=== PATIENT | male | born 1945 | race Caucasian/White ===

== ENCOUNTER → 2016-07-09 | Day surgery (SDC) | payer OTHER ==
[~2016-07-09] VITALS: Ht 175.3 cm; Wt 125.2 kg
[~2016-07-09] MED LIST: ACETAMINOPHEN TAB 650MG DOSE (2X325MG) PO SCH; ADV250INH INH; ALBU17IN INH; ALLO100T PO; ASPI32ECTA PO; BACITRACIN OINT 30GM As Ordered ONE; BACL10TA PO; BACT800T5 PO; BACTRIM 160MG/800MG DS TAB PO SCH; BUPIVACAINE HCL 0.25% 30 ML VIAL As Ordered ONE; CLOP75TA2 PO; DICL75TA PO; FINA5TAB2 PO; FLOM5CAP PO; FLON1SPR; HYDR10T PO; HYDR50TAB PO; IBUP-1114 PO; JANU100T PO; LIDOCAINE 1% SDV INJ 30 ML VIAL As Ordered ONE; LIDOCAINE 2% INJ 100 MG/5 ML SDV (FOR ANES.) As Ordered ONE; LR 1,000 ML IV SCH; MELO15TA4 PO; METF1000 PO; METOCLOPRAMIDE INJ 10MG/2ML VIAL (J2765) IV PRN; METOPROLOL TART 12.5 MG PER 1/2 TAB PO ONE; MIDAZOLAM INJ 2 MG/2 ML VIAL (J2250) As Ordered ONE; ONDANSETRON 4MG/2ML VIAL (J2405) IV PRN; PERCOCET 5MG/325MG TAB As Ordered ONE; PERCOCET 5MG/325MG TAB PO PRN; PHENYLephrine HCL 500 MCG/5 ML (100MCG/ML) SYRINGE (J2370) As Ordered ONE; PRAV40TA2 PO; PROPOFOL 200 MG/20 ML VIAL As Ordered ONE; ROCURONIUM BROMIDE 50 MG/5 ML VIAL As Ordered ONE; SILD50TA PO; SUCCINYLCHOLINE 100 MG/5 ML SYRINGE (J0330) As Ordered ONE; TRAM50TA2 PO; TYLE650T35 PO; VESI5TAB PO; ceFAZolin SOD 1 GM in D5W MINI-BAG PLUS 50 ML IV ONE; ePHEDrine SULFATE 25 MG/5 ML(5MG/ML) SYRINGE As Ordered ONE; fentaNYL 100 MCG/2 ML INJECTION (J3010) As Ordered ONE; fentaNYL 100 MCG/2 ML INJECTION (J3010) IV PRN
[2016-07-09 11:50] VITALS: BP 145/86
--- NOTE | 2016-07-09 14:03 | RO ---
DATE OF PROCEDURE: 07/09/2016 PREOPERATIVE DIAGNOSIS: Phimosis. POSTOPERATIVE DIAGNOSIS: Phimosis. PROCEDURE: Circumcision. SURGEON: Bucky Hinton MD DIRECTOR HOME HEALTH: Paul Mason, PGY-3 ANESTHESIA: General. COMPLICATIONS: None. ESTIMATED BLOOD LOSS: N/A. HISTORY OF PRESENT ILLNESS: 71-year-old male patient that has actively a phimosis and he could not retract the foreskin. For this reason, he consented for a circumcision. PROCEDURE DESCRIPTION: With the patient under general anesthesia in supine position, after prepping and draping the area of concern, which included the entire genitalia and abdomen, we started by placing at the base of the penis local lidocaine 1% and Marcaine 0.25%, a total of 10 mL, around the base of the penis. We then proceeded to actively retract the foreskin and we placed a silk stitch in a #0 Vicryl in the glans of the penis to stretch the penis and retract the foreskin. We then proceeded to do an incision 1 cm away from the sulcus of the glans in a circumferential fashion with a cold knife 15 blade. 4 cm proximal to this one, toward the base of the penis, we did another circumferential incision and then excised the strip of skin between the two incision sites. We then fulgurated with Bovie cautery the bleeding vessels and connected the borders of the skin with separate stitches, chromic #3-0, in separate stitch fashion. We then proceeded to actively place bacitracin cream on top of the wound, wrapped the penis wound with Kerlix roll and also a Coban. We took the stitch out for traction from the glans and held pressure for one minute to stop the bleeding from the glans. We then proceeded to actively pass the patient to recovery. He will go home today with antibiotic and pain medication. He will followup at [facility] [place] in about three days for removal of the stitches. He cannot have sex for one month.
== END | disposition home or self-care (01) ==
LOC: M SDC 06:39
PROVIDERS: ATTEND Urology
DX: N47.1 Phimosis (principal); I10 Essential (primary) hypertension; N40.0 Benign prostatic hyperplasia without lower urinary tract symptoms; E78.00 Pure hypercholesterolemia, unspecified; J45.909 Unspecified asthma, uncomplicated; I25.10 Atherosclerotic heart disease of native coronary artery without angina pectoris; E11.9 Type 2 diabetes mellitus without complications; I25.2 Old myocardial infarction; R06.02 Shortness of breath; G47.33 Obstructive sleep apnea (adult) (pediatric); J32.9 Chronic sinusitis, unspecified; M54.12 Radiculopathy, cervical region; E78.5 Hyperlipidemia, unspecified; M17.0 Bilateral primary osteoarthritis of knee; G47.00 Insomnia, unspecified; M54.41 Lumbago with sciatica, right side; Z90.89 Acquired absence of other organs; Z95.5 Presence of coronary angioplasty implant and graft; Z78.1 Physical restraint status; Z72.0 Tobacco use; Z79.899 Other long term (current) drug therapy; Z79.82 Long term (current) use of aspirin
CPT/HCPCS: 54161; 88304; J0330; J0690; J2250; J2370; J3010

== ENCOUNTER → 2018-11-12 | Outpatient (CLI) | payer MEDICARE ==
[~2018-11-12] MED LIST changes: -ACETAMINOPHEN TAB 650MG DOSE (2X325MG) PO SCH; +ASPI-255 PO; -ASPI32ECTA PO; -BACITRACIN OINT 30GM As Ordered ONE; -BACL10TA PO; +BACL1TAB8 PO; -BACTRIM 160MG/800MG DS TAB PO SCH; -BUPIVACAINE HCL 0.25% 30 ML VIAL As Ordered ONE; +FLOM0.4C39 PO; -FLOM5CAP PO; +HYDR-643 PO; -HYDR10T PO; -LIDOCAINE 1% SDV INJ 30 ML VIAL As Ordered ONE; -LIDOCAINE 2% INJ 100 MG/5 ML SDV (FOR ANES.) As Ordered ONE; -LR 1,000 ML IV SCH; +MELO15TA28 PO; -MELO15TA4 PO; -METF1000 PO; +METF10004 PO; -METOCLOPRAMIDE INJ 10MG/2ML VIAL (J2765) IV PRN; -METOPROLOL TART 12.5 MG PER 1/2 TAB PO ONE; -MIDAZOLAM INJ 2 MG/2 ML VIAL (J2250) As Ordered ONE; -ONDANSETRON 4MG/2ML VIAL (J2405) IV PRN; -PERCOCET 5MG/325MG TAB As Ordered ONE; -PERCOCET 5MG/325MG TAB PO PRN; -PHENYLephrine HCL 500 MCG/5 ML (100MCG/ML) SYRINGE (J2370) As Ordered ONE; -PROPOFOL 200 MG/20 ML VIAL As Ordered ONE; -ROCURONIUM BROMIDE 50 MG/5 ML VIAL As Ordered ONE; -SUCCINYLCHOLINE 100 MG/5 ML SYRINGE (J0330) As Ordered ONE; +VENTAER INH; -VESI5TAB PO; +VESI5TAB2 PO; -ceFAZolin SOD 1 GM in D5W MINI-BAG PLUS 50 ML IV ONE; -ePHEDrine SULFATE 25 MG/5 ML(5MG/ML) SYRINGE As Ordered ONE; -fentaNYL 100 MCG/2 ML INJECTION (J3010) As Ordered ONE; -fentaNYL 100 MCG/2 ML INJECTION (J3010) IV PRN
[2018-11-12 08:12] LABS: HEMATOCRIT 41.1 % (42.0-52.0); HEMOGLOBIN 13.1 g/dl (13.5-17.5); MEAN CORPUSCULAR HEMOGLOBIN 30.5 pg (27.0-33.0); MEAN CORPUSCULAR HGB CONC 31.9 g/dl (32.0-36.5); MEAN CORPUSCULAR VOLUME 95.8 fl (80.0-96.0); PLATELET COUNT, AUTOMATED 246 10^3/uL (150-450); RED BLOOD COUNT 4.29 10^6/uL (4.30-6.10); WHITE BLOOD COUNT 12.3 10^3/uL (4.0-10.0)
[2018-11-12 08:26] LABS: INR 0.97; PROTHROMBIN TIME 12.6 SECONDS (11.8-14.0)
[2018-11-12 08:38] LABS: ERYTHROCYTE SEDIMENTATION RATE 34 mm/hr (0-20)
[2018-11-12 08:41] LABS: ALBUMIN 3.8 GM/DL (3.2-5.2); BILIRUBIN,TOTAL 0.5 MG/DL (0.2-1.0); CREATININE FOR GFR 1.41 MG/DL (0.70-1.30); GLOMERULAR FILTRATION RATE 52.2 (>42); POTASSIUM SERUM 4.6 MEQ/L (3.5-5.1); TOTAL PROTEIN 7.2 GM/DL (6.4-8.2)
--- NOTE | 2018-11-12 09:27 | REP ---
REASON: Preoperative evaluation. COMPARISON: None. There is cardiomegaly. There is bilateral CP angle blunting. Lung weeks are otherwise clear. Degenerative change is seen involving the imaged spine. The osseous structures are otherwise unremarkable. IMPRESSION: Mild cardiomegaly and mild bilateral CP angle blunting. There are no priors for comparison. Consider chest CT. Electronically Signed by Gildardo Bowen DO 11/12/2018 02:09 P
--- NOTE | 2018-11-13 16:02 | ECGEPIP ---
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
== END ==
LOC: M LAB 07:40
PROVIDERS: ATTEND Orthopaedic Surgery
DX: Z01.818 Encounter for other preprocedural examination (principal); Z79.01 Long term (current) use of anticoagulants

== ENCOUNTER → 2018-11-30 | Outpatient (REF) | payer MEDICARE ==
[2018-11-30 14:12] LABS: APPEARANCE, URINE CLEAR (CLEAR); BACTERIA, URINE AUTO NEGATIVE (NEGATIVE); BILIRUBIN, URINE AUTO NEGATIVE (NEGATIVE); BLOOD, URINE BLOOD NEGATIVE (NEGATIVE); COLOR, URINE STRAW (YELLOW); GLUCOSE, URINE (UA) AUTO NEGATIVE (NEGATIVE); KETONE, URINE AUTO NEGATIVE (NEGATIVE); LEUKOCYTE ESTERASE, URINE AUTO NEGATIVE (NEGATIVE); NITRITE, URINE AUTO NEGATIVE (NEGATIVE); PROTEIN, URINE AUTO NEGATIVE (NEGATIVE); RBC, URINE AUTO 0 /HPF (0-3); SPECIFIC GRAVITY URINE AUTO 1.009 (1.002-1.035); SQUAMOUS EPITHELIAL CELL UR AU 0 /HPF (0-6); UROBILINOGEN, URINE AUTO 0.2 mg/dL (0.0-2.0); WBC, URINE AUTO 1 /HPF (0-3)
== END ==
LOC: M SMT 13:47
PROVIDERS: ATTEND Nurse Practitioner Women's Health
DX: N13.2 Hydronephrosis with renal and ureteral calculous obstruction (principal)
CPT/HCPCS: 81001; 87086; G0463

== ENCOUNTER → 2018-12-09 | Outpatient (CLI) | payer MEDICARE ==
--- NOTE | 2018-12-09 14:08 | REP ---
CT ABDOMEN AND PELVIS WITHOUT IV OR ORAL CONTRAST: HISTORY: Ureteral stone with hydronephrosis. Comparison CT study is from September 01, 2011. 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 The lung bases are clear on axial CT images. The liver and the spleen are normal in size homogeneous in texture. No adrenal lesion is seen. No pancreatic abnormality is observed. No abnormalities noted in the gallbladder. The there are bilateral intrarenal calculi. There are five or six intrarenal calculi in the right kidney. The largest of these measures 9 mm in greatest diameter. There are also multiple intrarenal calculi in the left kidney. The largest of these is a renal pelvic calculus measuring 10 mm. There are two or three calculi dependently positioned in the dilated renal pelvis. There is moderate left-sided hydronephrosis. Hydroureter is noted due to an obstructing proximal ureteral calculus just below the level of the lower pole left kidney. This calculus measures 9 mm in greatest diameter. There is a intraluminal bladder calculus just to the right of midline measuring 6 mm in diameter. No other urinary tract calculus is seen. There are prostatic calcifications which a dystrophic. Seminal vesicles are unremarkable. There is left colonic diverticulosis without CT evidence of diverticulitis. A normal appendix is seen in the right lower quadrant. No abdominal wall defect is noted. There are degenerative spondylosis changes in the lumbar spine. IMPRESSION: Moderate left-sided hydronephrosis due to a 9 mm proximal ureteral calculus. There are multiple calculi above this in the renal pelvis and intrarenal collecting system on the left. There are multiple intrarenal calculi in the right kidney as above without right-sided hydronephrosis. There is a 6 mm bladder calculus noted as well. Electronically Signed by Nathaniel Wilkins MD 12/09/2018 03:13 P
== END ==
LOC: M RAD 10:23
PROVIDERS: ATTEND Nurse Practitioner Women's Health
DX: N13.2 Hydronephrosis with renal and ureteral calculous obstruction (principal); K57.30 Diverticulosis of large intestine without perforation or abscess without bleeding; M47.816 Spondylosis without myelopathy or radiculopathy, lumbar region

== ENCOUNTER 2019-02-04 05:59 | Inpatient (IN) | payer MEDICARE ==
[~2019-02-04] VITALS: Ht 172.7 cm; Wt 113.2 kg
[~2019-02-04 05:59] MED LIST changes: +BASA100I SC; +CARV3.12 PO; +FISH1000 PO; -FLON1SPR; +FLON1SPR NARES; +FURO40TA2 PO; +GABA600T4 PO; +OXYB5TAB10 PO
[2019-02-04 06:29] LABS: BASO # 0.1 10^3/uL (0.0-0.2); BASO % 0.7 % (0.0-1.0); EOS % 0.1 % (0.0-3.0); HEMATOCRIT 47.2 % (42.0-52.0); LYMPH # 0.4 10^3/uL (1.5-5.0); LYMPH % 5.3 % (24.0-44.0); MEAN CORPUSCULAR HEMOGLOBIN 30.1 pg (27.0-33.0); MEAN CORPUSCULAR HGB CONC 31.8 g/dl (32.0-36.5); MEAN CORPUSCULAR VOLUME 94.8 fl (80.0-96.0); MONO # 0.5 10^3/uL (0.0-0.8); MONO % 6.4 % (0.0-5.0); NEUTROPHILS # 6.3 10^3/uL (1.5-8.5); NEUTROPHILS % 86.8 % (36.0-66.0); PLATELET COUNT, AUTOMATED 190 10^3/uL (150-450); RED BLOOD COUNT 4.98 10^6/uL (4.30-6.10); WHITE BLOOD COUNT 7.3 10^3/uL (4.0-10.0)
[2019-02-04 07:03] LABS: ALT/SGPT 28 U/L (12-78); BILIRUBIN,TOTAL 0.8 MG/DL (0.2-1.0); BLOOD UREA NITROGEN 22 MG/DL (7-18); CALCIUM LEVEL 8.6 MG/DL (8.8-10.2); CARBON DIOXIDE LEVEL 29 MEQ/L (21-32); CHLORIDE LEVEL 97 MEQ/L (98-107); CK-MB VALUE MASS < 1.0 NG/ML (<3.6); CPK CREATINE PHOSPHOKINASE 102 U/L (39-308); GLOMERULAR FILTRATION RATE 39.4 (>42); GLUCOSE, FASTING 142 MG/DL (70-100); MB/CK RELATIVE INDEX 0.98 (< OR =4); POTASSIUM SERUM 4.6 MEQ/L (3.5-5.1); SODIUM LEVEL 135 MEQ/L (136-145)
[2019-02-04 07:04] LABS: ALBUMIN 3.6 GM/DL (3.2-5.2); BILIRUBIN,DIRECT 0.3 MG/DL (0.0-0.2); NT-PRO BNP 10449 PG/ML (<450); TOTAL PROTEIN 7.3 GM/DL (6.4-8.2); TROPONIN I 0.08 NG/ML (< 0.10)
--- NOTE | 2019-02-04 07:06 | REPVR ---
PROCEDURE INFORMATION: Exam: CT Abdomen and Pelvis Without Contrast Exam date and time: 02/04/19 (6:30am) Clinical history: 73 year old male with right flank pain. Renal colic. TECHNIQUE: Imaging protocol: Computed tomography of the abdomen and pelvis without contrast. Radiation optimization: All CT scans at this facility use at least one of these dose optimization techniques: automated exposure control; mA and/or kV adjustment per patient size (includes targeted exams where dose is matched to clinical indication); or iterative reconstruction. COMPARISON: CT ABDOMEN PELVIS of 12/09/18 FINDINGS: Liver: Normal. No solid mass. Gallbladder and bile ducts: Normal. No calcified stones. No ductal dilatation. Pancreas: Normal. No ductal dilatation. Spleen: Normal. No splenomegaly. Adrenals: Normal. No mass. Kidneys and ureters: Mildly full left intrarenal collecting system. The proximal left ureter is dilated. Multiple non-obstructing bilateral intrarenal stones. Multiple stones in the proximal 1/3 of the left ureter. No distal left ureteral stones. Left upper renal pole parapelvic renal cyst (1.5 cm size). Probable small cyst laterally at the left lower renal pole. Stomach and bowel: Unremarkable. No bowel obstruction. No mucosal thickening. Appendix: No evidence of appendicitis. Intraperitoneal space: Unremarkable. No free air. No significant fluid collection. Vasculature: Unremarkable. No abdominal aortic aneurysm. Lymph nodes: Unremarkable. No enlarged lymph nodes. Bladder: Small stone (3 mm size) posteriorly in the urinary bladder, in the midline. Larger stone (5 mm size) posteriorly, right of midline (perhaps in the intramural portion of the distal right ureter; perhaps a stone recently passed into the bladder). Reproductive: Unremarkable as visualized. Bones/joints: Unremarkable. No acute fracture. Soft tissues: Unremarkable. IMPRESSION: Mildly full left intrarenal collecting system. Multiple non-obstructing intrarenal stones, bilaterally. Multiple small proximal left ureteral stones. Small punctate stone in the midline of the urinary bladder, layering dependently. Larger stone (5 mm size) in the urinary bladder, right of midline -- probably in the intramural portion of the distal right ureter, or recently passed into the urinary bladder. Electronically signed by: Ludy Hernandez On 02/04/2019 07:06:01 AM
--- NOTE | 2019-02-04 07:08 | REP ---
Clinical: Cough and dyspnea. Technique: AP and lateral views of the chest. Comparison: 11/12/2018. Findings: Mediastinum and cardiac silhouette are within normal limits. Lung weeks are clear and without focal consolidation, effusion, or pneumothorax. Skeletal structures are intact. Impression: No focal consolidation. Electronically Signed by Isak Urbina MD 02/04/2019 06:59 A
[2019-02-04] MEDS ORDERED: FUROSEMIDE 40 MG/4 ML VIAL (J1940) IV ONE (07:45)
[2019-02-04] MEDS ORDERED: ASPI81TA85 PO (08:27)
[2019-02-04] MEDS ORDERED: METF-839 PO (08:27)
[2019-02-04] MEDS ORDERED: ACE65ERTAB PO (08:27)
[2019-02-04] MEDS ORDERED: OXYB5TAB2 PO (08:27)
[2019-02-04] MEDS ORDERED: ALBU83IN INH (08:27)
[2019-02-04] MEDS ORDERED: CARV12.5 PO (08:27)
[2019-02-04] MEDS ORDERED: SYST0.4D2 OS (08:27)
[2019-02-04] MEDS ORDERED: FLUTICASONE PROP 0.05% NASAL SPRAY 16 GM (FLONASE) NARES PRN (12:00)
[2019-02-04] MEDS ORDERED: GLUCOSE 4 GM CHEW TABLET PO PRN (12:00)
[2019-02-04] MEDS ORDERED: GLUCAGON FOR INJ 1 MG VIAL (J1610) SC PRN (12:00)
[2019-02-04] MEDS ORDERED: DEXTROSE 50% 50 ML SYRINGE IV PRN (12:00)
--- NOTE | 2019-02-04 12:44 | HPEPDOC ---
[facility] Medical History & Physical Date of Admission Feb 04, 2019 Date of Service: Feb 04, 2019 Attending Physician: LUNA WALTERS MD History and Physical CHIEF COMPLAINT: Shortness of breath HISTORY OF PRESENT ILLNESS: 73-year-old male with past medical history of coronary artery disease status post [place], stents 3, CHF with low ejection fraction, diabetes mellitus, asthma and arthritis presents with shortness of breath. The past few days. He reports that he's gained about 6 pounds over the past 2 weeks, reports paroxysmal nocturnal dyspnea for the past few days, worsening, also having a dry cough along with worsening lower extremity edema. He does not have any other associated symptoms, denies fever, chills, arthralgia, nausea, vomiting, abdominal pain or diarrhea. 10 point review of system was negative except for above PAST MEDICAL HISTORY: 1. CHF. 2., Coronary artery disease. 3.. NH. 4. Diabetes mellitus 5. Asthma 6. Renal calculi 7. Arthritis PAST SURGICAL HISTORY: 1. Coronary stents. 2. Appendectomy. SOCIAL HISTORY: Denies smoking. Denies alcohol Denies drug use FAMILY HISTORY: Family history positive for heart disease ALLERGIES: Please see below. HOME MEDICATIONS: Please see below. PHYSICAL EXAMINATION: VITAL SIGNS: Please see below. GENERAL: No distress, morbidly obese HEENT: Normocephalic, atraumatic, moist mucous membranes NECK: Supple CARDIOVASCULAR EXAMINATION: Distant, S1, S2 RESPIRATORY EXAMINATION: Scattered rhonchi, diminished, no wheezing ABDOMINAL EXAMINATION: Soft, nontender, nondistended, positive bowel sounds EXTREMITIES: Bilateral lower extremity pitting edema SKIN: No rash NEUROLOGICAL EXAMINATION: Alert and oriented 3, no focal deficits PSYCHIATRIC EXAMINATION: Calm and cooperative LABORATORY DATA: See below. IMAGING: Chest x-ray without acute pathology MICROBIOLOGY: Please see below. ASSESSMENT: 73-year-old male with past medical history of CHF, coronary artery disease, [place], diabetes mellitus and asthma presents with symptoms concerning for fluid overload. . PLAN: 1. Acute on chronic systolic heart failure. TTE ordered, fluid restriction 1200 mL per day, monitor I's and O's, weighed daily, Lasix 40 mg IV twice a day. 2. Acute kidney injury on chronic kidney disease. Based on clinical presentation, likely cardiorenal syndrome, will monitor renal function with continued diuresis. 3. Diabetes mellitus. Levemir 10 units at bedtime, sliding scale insulin with fingersticks before every meal see and at bedtime 4. Coronary artery disease. Status post NH 4-5 years ago, 3-4 stents placed at that time, currently stab le. Continue optimal medical management (aspirin, Plavix, statin and beta matthew) 5. Asthma Continue home meds. 6. BPH. Continue home Proscar, oxybutynin, and Vesicare DVT prophylaxis: Heparin subcutaneous GI prophylaxis: Not needed Vital Signs Vital Signs Date Time Temp Pulse Resp B/P (MAP) Pulse Ox O2 Delivery O2 Flow Rate FiO2 02/04/19 11:15 87 107/67 (80) 96 Nasal Cannula 2.0 02/04/19 09:00 16 02/04/19 06:00 97.5 Laboratory Data Labs 24H Laboratory Tests 2 02/04/19 06:17: Immature Granulocyte % (Auto) 0.7, Neutrophils (%) (Auto) 86.8H, Lymphocytes (%) (Auto) 5.3L, Monocytes (%) (Auto) 6.4H, Eosinophils (%) (Auto) 0.1, Basophils (%) (Auto) 0.7, Neutrophils # (Auto) 6.3, Lymphocytes # (Auto) 0.4L, Monocytes # (Auto) 0.5, Eosinophils # (Auto) 0.0, Basophils # (Auto) 0.1, Nucleated Red Blood Cells % (auto) 0.0, Anion Gap 9, Glomerular Filtration Rate 39.4L, Calcium Level 8.6L, Total Bilirubin 0.8, Direct Bilirubin 0.3H, Aspartate Amino Transf (AST/SGOT) 25, Alanine Aminotransferase (ALT/SGPT) 28, Alkaline Phosphatase 64, Total Creatine Kinase 102, Creatine Kinase MB < 1.0, Creatine Kinase MB Relative Index 0.98, Troponin I 0.08, MZ-[id number]-Type Natriuretic Peptide 16044R, Total Protein 7.3, Albumin 3.6, Albumin/Globulin Ratio 0.97L, Thyroid Stimulating Hormone (TSH) 1.130 02/04/19 09:09: Urine Color YELLOW, Urine Appearance CLEAR, Urine pH 7.0, Urine Specific [place] 1.009, Urine Protein NEGATIVE, Urine Glucose (UA) NEGATIVE, Urine Ketones NEGATIVE, Urine Blood NEGATIVE, Urine Nitrite NEGATIVE, Urine Bilirubin NEGATIVE , Urine Urobilinogen 0.2, Urine Leukocyte Esterase NEGATIVE, Urine WBC (Auto) 0, Urine RBC (Auto) 1, Urine Hyaline Casts (Auto) 0, Urine Bacteria (Auto) NEGATIVE, Urine Squamous Epithelial Cells 0, Urine Mucus (Auto) SMALL, Urine Sperm (Auto) CBC/BMP Laboratory Tests 02/04/19 06:17 Home Medications Scheduled Allopurinol (Allopurinol) 100 Mg Tab, 100 MG PO BID Aspirin (Aspir 81) 81 Mg Tablet.dr, 81 MG PO DAILY Baclofen (Baclofen) 10 Mg Tab, 5 MG PO QHS Carvedilol (Carvedilol) 12.5 Mg Tablet, 12.5 MG PO BID Clopidogrel Bisulfate (Clopidogrel) 75 Mg Tablet, 75 MG PO DAILY Finasteride (Finasteride) 5 Mg Tab, 5 MG PO DAILY Furosemide (Furosemide) 40 Mg Tablet, 40 MG PO DAILY Gabapentin (Gabapentin) 600 Mg Tablet, 600 MG PO TID Insulin Glargine,Hum.rec.anlog (Basaglar Kwikpen U-100) 100 Unit/1 Ml Insuln.pen, 14 UNIT SC QHS Metformin HCl (Metformin HCl) 500 Mg Tablet, 500 MG PO BID Oxybutynin Chloride (Oxybutynin Chloride ER) 5 Mg Tab.er.24, 5 MG PO DAILY Pravastatin Sodium (Pravastatin Sodium) 40 Mg Tab, 40 MG PO QPM Salmeterol/Fluticasone (Advair 250-50 Diskus) 14 Puff/Inhaler Aerp, 1 PUFF INH BID Sitagliptin Phosphate (Januvia) 100 Mg Tab, 100 MG PO DAILY Solifenacin Succinate (Vesicare) 5 Mg Tab, 5 MG PO DAILY Scheduled PRN Acetaminophen (Acetaminophen ER) 650 Mg Tablet.er, 650 MG PO Q8H PRN for PAIN Albuterol Sulf (Albuterol Sulfate) 2.5 Mg/3 Ml Vial.neb, 2.5 MG INH Q4H PRN for SHORTNESS OF BREATH Albuterol Sulfate (Ventolin Hfa) 18 Gm Hfa.aer.ad, 2 PUFF INH Q4H PRN for SOB/WHEEZING Fluticasone Propionate (Flonase Allergy Relief) 50 Mcg/Act Spr, 2 SPRAYS NARES DAILY PRN for CONGESTION Propylene Glycol/Peg 400 (Systane Gel Eye Drops) 10 Ml Drops.gel, 1 DROP OS QID PRN for DRY EYES Allergies Coded Allergies: No Known Allergies (Unverified , 12/30/18) A-FIB/CHADSVASC A-FIB History Current/History of A-Fib/PAF?: No LUNA WALTERS MD Feb 04, 2019 12:44
[2019-02-04] MEDS: HumaLOG INSULIN (NovoLOG) PER UNIT SC SCH ×3 (12:59→21:00)
--- NOTE | 2019-02-04 13:37 | ECGEPIP ---
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
[2019-02-04] MEDS: HEPARIN SOD (PORCINE) 5000 UNITS/ML VIAL SC SCH ×2 (15:09→21:45)
[2019-02-04 16:45] VITALS: BP 133/86
[2019-02-04] MEDS ORDERED: FUROSEMIDE 40 MG/4 ML VIAL (J1940) IV SCH (17:00)
[2019-02-04] MEDS: GABAPENTIN 300 MG CAP PO SCH ×2 (17:42→21:42)
[2019-02-04 20:00] VITALS: BP 99/64
[2019-02-04] MEDS: ADVAIR HFA 115/21MCG INHALER INH SCH (20:20)
[2019-02-04] MEDS ORDERED: POTASSIUM CHLORIDE 10 MEQ SR TABLET PO SCH (21:00)
[2019-02-04] MEDS: BACLOFEN 5MG PER 1/2 TABLET PO SCH (21:41)
[2019-02-04] MEDS: ALLOPURINOL 100 MG TAB PO SCH (21:42)
[2019-02-04] MEDS: PRAVASTATIN 20 MG TAB PO SCH (21:42)
[2019-02-04] MEDS: CARVedilol 12.5 MG TAB PO SCH (21:45)
[2019-02-04] MEDS: LEVEMIR (INSULIN DETEMIR) 1 UNITS/0.01ML SC SCH (21:46)
[2019-02-05] VITALS (7 sets, daily range): BP systolic 96–124; BP diastolic 50–74
[2019-02-05 06:06] LABS: HEMATOCRIT 46.6 % (42.0-52.0); HEMOGLOBIN 14.8 g/dl (13.5-17.5); MEAN CORPUSCULAR HEMOGLOBIN 29.8 pg (27.0-33.0); MEAN CORPUSCULAR HGB CONC 31.8 g/dl (32.0-36.5); MEAN CORPUSCULAR VOLUME 93.8 fl (80.0-96.0); PLATELET COUNT, AUTOMATED 136 10^3/uL (150-450); RED BLOOD COUNT 4.97 10^6/uL (4.30-6.10); WHITE BLOOD COUNT 6.5 10^3/uL (4.0-10.0)
[2019-02-05 06:32] LABS: ALBUMIN 3.4 GM/DL (3.2-5.2); BILIRUBIN,TOTAL 0.8 MG/DL (0.2-1.0); CALCIUM LEVEL 8.8 MG/DL (8.8-10.2); CREATININE FOR GFR 1.97 MG/DL (0.70-1.30); GLOMERULAR FILTRATION RATE 35.5 (>42); MAGNESIUM LEVEL 2.1 MG/DL (1.8-2.4); POTASSIUM SERUM 4.2 MEQ/L (3.5-5.1); TOTAL PROTEIN 7.7 GM/DL (6.4-8.2)
[2019-02-05] MEDS: ADVAIR HFA 115/21MCG INHALER INH SCH ×2 (09:00→20:30)
[2019-02-05] MEDS: HumaLOG INSULIN (NovoLOG) PER UNIT SC SCH ×4 (09:21→20:47)
[2019-02-05] MEDS: HEPARIN SOD (PORCINE) 5000 UNITS/ML VIAL SC SCH ×2 (09:21→20:47)
[2019-02-05] MEDS: ASPIRIN 81 MG ENTERIC TAB PO SCH (09:21)
[2019-02-05] MEDS: GABAPENTIN 300 MG CAP PO SCH ×3 (09:21→20:46)
[2019-02-05] MEDS: oxyBUTYnin *DITROPAN XL* 5 MG TABCR PO SCH (09:21)
[2019-02-05] MEDS: CLOPIDOGREL 75 MG TAB PO SCH (09:21)
[2019-02-05] MEDS: CARVedilol 12.5 MG TAB PO SCH ×2 (09:22→20:47)
[2019-02-05] MEDS: ALLOPURINOL 100 MG TAB PO SCH ×2 (09:22→20:47)
[2019-02-05] MEDS: FINASTERIDE 5 MG TAB PO SCH (09:23)
--- NOTE | 2019-02-05 10:01 | REP ---
Renal ultrasound: The right kidney measures 12.6 by 5.9 x 6.0 cm. Left kidney measures 0.7 x 6.3 x 5.3 cm. The kidneys are normal size. Renal cortical echogenicity is normal bilaterally. There is no hydronephrosis on the right. There is moderate hydronephrosis on the left. There is no hydroureter on the right on the left. There are multiple echogenic foci within each kidney compatible with renal calculi. The largest on the right measures 8 x 6 mm and the largest on the left measures 17 mm. There are no solid or cystic renal masses. Bladder: The bladder is adequately distended. With color Doppler assessment there are bilateral ureteral jets suggesting there is no ureteral obstruction. Impression: Multiple nonobstructive renal calculi bilaterally. Moderate left hydronephrosis, however, there is a left ureteral jet into the bladder. No right hydronephrosis. There is a right ureteral jet into the bladder. Electronically Signed by Duy Broussard MD 02/05/2019 09:53 A
[2019-02-05] MEDS: SOLIFENACIN 5 MG TAB PO SCH (11:20)
--- NOTE | 2019-02-05 12:43 | IPNPDOC ---
Date Seen The patient was seen on 02/05/19. Progress Note HISTORY OF PRESENT ILLNESS: 73-year-old male with past medical history of coronary artery disease status post [place], stents 3, CHF with low ejection fraction, diabetes mellitus, asthma and arthritis presents with shortness of breath. The past few days. He reports that he's gained about 6 pounds over the past 2 weeks, reports paroxysmal nocturnal dyspnea for the past few days, worsening, also having a dry cough along with worsening lower extremity edema. He does not have any other associated symptoms, denies fever, chills, arthralgia, nausea, vomiting, abdominal pain or diarrhea. 02/05/2019 Patient resting in bed, reports slight improvement in dyspnea, continues to have cough, had good urine output overnight, but minimal in the morning. He has no other complaints at this time, denies any chest pain, vomiting, abdominal pain or diarrhea. 10 point review of system was negative except for above ALLERGIES: Please see below. HOME MEDICATIONS: Please see below. PHYSICAL EXAMINATION: VITAL SIGNS: Please see below. GENERAL: No distress, morbidly obese HEENT: Normocephalic, atraumatic, moist mucous membranes NECK: Supple CARDIOVASCULAR EXAMINATION: Distant, S1, S2 RESPIRATORY EXAMINATION: Scattered rhonchi, diminished, no wheezing ABDOMINAL EXAMINATION: Soft, nontender, nondistended, positive bowel sounds EXTREMITIES: Bilateral lower extremity pitting edema SKIN: No rash NEUROLOGICAL EXAMINATION: Alert and oriented 3, no focal deficits PSYCHIATRIC EXAMINATION: Calm and cooperative LABORATORY DATA: See below. IMAGING: Chest x-ray without acute pathology MICROBIOLOGY: Please see below. ASSESSMENT: 73-year-old male with past medical history of CHF, coronary artery disease, [place], diabetes mellitus and asthma presents with symptoms concerning for fluid overload. PLAN: 1. Acute on chronic systolic heart failure. TTE ordered, fluid restriction 1200 mL per day, monitor I's and O's, weighed daily, hold Lasix today for worsening renal function. 2. Acute kidney injury on chronic kidney disease. Worsening, possibly obstructive, renal ultrasound showing moderate left hydronephrosis, urology consulted (Dr. Galeana), holding diuretics for today. 3. Diabetes mellitus. Levemir 10 units at bedtime, sliding scale insulin with fingersticks before every meal see and at bedtime 4. Coronary artery disease. Status post [place] 4-5 years ago, 3-4 stents placed at that time, currently stable. Continue optimal medical management (aspirin, Plavix, statin and beta matthew) 5. Asthma Continue home meds. 6. BPH. Continue home Proscar, oxybutynin, and Vesicare DVT prophylaxis: Heparin subcutaneous GI prophylaxis: Not needed VS, I&O, 24H, Fishbone Vital Signs/I&O Vital Signs Date Time Temp Pulse Resp B/P (MAP) Pulse Ox O2 Delivery O2 Flow Rate FiO2 02/05/19 12:00 98.2 98 21 100/50 (67) 91 Nasal Cannula 2.0 I&O- Last 24 Hours up to 6 AM 02/05/19 06:00 Intake Total 660 ml Output Total 1375 ml Balance -715 ml Laboratory Data 24H LABS Laboratory Tests 2 02/04/19 12:52: Bedside Glucose (Misc Panel) 121H 02/04/19 16:37: Bedside Glucose (Misc Panel) 137H 02/04/19 20:26: Bedside Glucose (Misc Panel) 170H 02/05/19 05:31: Nucleated Red Blood Cells % (auto) 0.0, Anion Gap 7L, Glomerular Filtration Rate 35.5L, Calcium Level 8.8, Magnesium Level 2.1, Total Bilirubin 0.8, Aspartate Amino Transf (AST/SGOT) 48H, Alanine Aminotransferase (ALT/SGPT) 32, Alkaline Phosphatase 64, Total Protein 7.7, Albumin 3.4, Albumin/Globulin Ratio 0.79L 02/05/19 11:49: Urine Random Creatinine 176.0, Urine Random Sodium 39 CBC/BMP Laboratory Tests 02/05/19 05:31 Microbiology Microbiology 02/05/19 Respiratory Virus Panel (PCR) ([facility]), Received Pending LUNA WALTERS MD Feb 05, 2019 12:43
--- NOTE | 2019-02-05 13:54 | ECHO ---
DATE OF PROCEDURE: 02/05/2019 REFERRING PROVIDER: Dr. Rubio PATIENT LOCATION: Room 3218 REASON FOR STUDY: Heart failure. 2D MEASUREMENT: IVS 0.9 cm LV 6.4 cm LVPW 0.9 cm LA 4.1 cm Aorta 3.5 cm Aortic root 3.5 cm Ascending aorta 3.8 cm IVC 2.1 cm. DOPPLER MEASUREMENT: Peak velocity across the aortic valve 1.8 m/s Peak velocity across the LVOT 0.74 m/s Mitral E 1.2 Mitral A 1.2 Maximum tricuspid valve velocity 2.4 m/s 2D COMMENTS: 1. Probably moderate enlarged left ventricle with normal left ventricular wall thickness but markedly depressed global left ventricular systolic function. There is a severe diffuse hypokinesis. LVEF is estimated at 20%. 2. Mildly enlarged left atrium. Normal right atrium and left ventricle. 3. The atrial septum appeared to be normal without evidence of defect or shunt. 4. Normal aortic root. The ascending aorta is mildly enlarged. 5. Trace pericardial effusion noted, no evidence of cardiac tamponade. 6. Moderately calcified aortic valve with mildly restricted leaflet motion. Mildly calcified mitral annulus with normal mitral valve leaflet motion. Normal tricuspid valve and pulmonic valve. The proximal pulmonary artery branches also appear to be normal. 7. The inferior vena cava is dialted, central venous pressure might be elevated DOPPLER: Detects trace mitral regurgitation, trace to mild tricuspid regurgitation. The calculated pulmonary artery systolic pressure varies between 30-40 mmHg. Assessment of the left ventricular diastolic function appeared to be abnormal, a pseudo normal pattern was noted consistent with features of grade 2 left ventricular diastolic dysfunction. IMPRESSION: 1. Severe global left ventricular systolic dysfunction with diffuse hypokinesis. The left ventricle appears to be moderately enlarged. 2. Probably grade 2 left ventricular diastolic dysfunction, left ventricular end-diastolic pressure might be elevated. 3. Aortic valve sclerosis with trivial aortic stenosis but no aortic radiation. Could not rule out more severe aortic stenosis in view of the severely depressed global left ventricular systolic function. 4. Mildly dilated ascending aorta at 3.8 cm. 5. Mildly enlarged left atrium with trace mitral regurgitation and mitral annulus calcification. 6. Trace to mild tricuspid regurgitation with mild pulmonary hypertension. 7. Trace pericardial effusion noted, no evidence of cardiac tamponade.
[2019-02-05] MEDS: ONDANSETRON 4MG/2ML VIAL (J2405) IV PRN (14:21)
[2019-02-05] MEDS: ALBUTEROL SULFATE 2.5 MG/0.5 ML INH NEB SOLN INH PRN ×2 (14:30→16:46)
[2019-02-05] MEDS: MORPHINE 2 MG/ML 1ML VIAL (J2270) IV PRN (16:25)
[2019-02-05] MEDS ORDERED: ALBUTEROL SULFATE 2.5 MG/0.5 ML INH NEB SOLN INH PRN (18:00)
[2019-02-05] MEDS: ALBUTEROL SULFATE 2.5 MG/0.5 ML INH NEB SOLN NEB SCH (20:00)
[2019-02-05] MEDS: PRAVASTATIN 20 MG TAB PO SCH (20:45)
[2019-02-05] MEDS: LEVEMIR (INSULIN DETEMIR) 1 UNITS/0.01ML SC SCH (20:45)
[2019-02-05] MEDS: ACETAMINOPHEN 650MG ER TAB (TYLENOL ARTHRITIS) PO PRN (20:46)
[2019-02-05] MEDS: BACLOFEN 5MG PER 1/2 TABLET PO SCH (23:00)
[2019-02-06] VITALS (24 sets, daily range): BP systolic 97–124; BP diastolic 56–88; O2SAT 93–95
[2019-02-06 05:47] LABS: HEMATOCRIT 46.4 % (42.0-52.0); HEMOGLOBIN 14.6 g/dl (13.5-17.5); MEAN CORPUSCULAR HEMOGLOBIN 30.4 pg (27.0-33.0); MEAN CORPUSCULAR HGB CONC 31.5 g/dl (32.0-36.5); MEAN CORPUSCULAR VOLUME 96.5 fl (80.0-96.0); RED BLOOD COUNT 4.81 10^6/uL (4.30-6.10); WHITE BLOOD COUNT 6.5 10^3/uL (4.0-10.0)
[2019-02-06 06:18] LABS: PLATELET COUNT, AUTOMATED 79 10^3/uL (150-450)
[2019-02-06 06:23] LABS: ALBUMIN 3.3 GM/DL (3.2-5.2); BILIRUBIN,TOTAL 0.8 MG/DL (0.2-1.0); CALCIUM LEVEL 8.8 MG/DL (8.8-10.2); CREATININE FOR GFR 2.2 MG/DL (0.70-1.30); GLOMERULAR FILTRATION RATE 31.2 (>42); MAGNESIUM LEVEL 2.6 MG/DL (1.8-2.4); PHOSPHORUS LEVEL 5.1 MG/DL (2.5-4.9); POTASSIUM SERUM 4.8 MEQ/L (3.5-5.1); TOTAL PROTEIN 7.7 GM/DL (6.4-8.2)
[2019-02-06] MEDS ORDERED: CONRAY-60 60% 50ML VIAL (Q9961) As Ordered ONE (07:21)
[2019-02-06] MEDS ORDERED: ONDANSETRON 4MG/2ML VIAL (J2405) As Ordered ONE (07:22)
[2019-02-06] MEDS ORDERED: PROPOFOL 200 MG/20 ML VIAL As Ordered ONE (07:22)
[2019-02-06] MEDS ORDERED: fentaNYL 100 MCG/2 ML INJECTION (J3010) As Ordered ONE (07:22)
[2019-02-06] MEDS ORDERED: LIDOCAINE 2% INJ 100 MG/5 ML SDV (FOR ANES.) As Ordered ONE (07:22)
[2019-02-06] MEDS ORDERED: MIDAZOLAM INJ 2 MG/2 ML VIAL (J2250) As Ordered ONE (07:22)
[2019-02-06] MEDS: CARVedilol 12.5 MG TAB PO SCH ×2 (07:45→20:15)
[2019-02-06] MEDS: HumaLOG INSULIN (NovoLOG) PER UNIT SC SCH ×4 (07:45→20:06)
[2019-02-06] MEDS: ALBUTEROL SULFATE 2.5 MG/0.5 ML INH NEB SOLN NEB SCH ×4 (08:00→20:00)
[2019-02-06] MEDS ORDERED: ceFAZolin 2 GM/D5W 50 ML IV BAG (J0690 PER 500MG) As Ordered ONE (08:05)
[2019-02-06] MEDS ORDERED: LIDOCAINE 2% 5ML JELLY UROJET As Ordered ONE (08:12)
[2019-02-06] MEDS ORDERED: ceFAZolin SOD 2 GM in IV 1 EA IV ONE (08:15)
--- NOTE | 2019-02-06 08:16 | SMCUROLCON ---
Urology Consultation General Date of Consultation 02/06/19 Reason For Consultation This patient is seen for Acute Chf,Arthritis,Asthma,Ckd,Diabetes Mellitus. History of Present Illness The is a 73 y/o M w/ a PMH significant for CHF, CAD, DM2, kidney stones, and asthma, admitted for a CHF exacerbation and PEDRO PABLO. His Cr has continued to rise since admission, now up to 2.2 from a baseline of 1.4. A CT A/P done 2 days ago was notable for multiple b/l kidneys stones as well as multiple proximal left ureteral stones measuring up to 4mm causing obstruction. The patient denies left flank pain. He denies n/v. Denies dysuria. Denies f/c/ns. Past Medical History Medical History see HPI Surgical Hstory cardiac stenting 2011, ureteroscopy w/ laser lithotripsy x2, circumcision Medications Current Medications Current Medications Medications (Trade) Dose Ordered Sig/Ronnie Route PRN Reason Start Time Stop Time Status Last Admin Dose Admin Acetaminophen (Tylenol Arthritis Er) 650 mg Q8H PRN PO PAIN 02/04/19 12:00 02/05/19 20:46 Albuterol Sulfate (Proventil Neb) 2.5 mg Q2HP PRN INH SHORTNESS OF BREATH 02/05/19 18:00 Albuterol Sulfate (Proventil Neb) 2.5 mg Q4H PRN INH SHORTNESS OF BREATH 02/04/19 12:00 02/05/19 17:08 DC 02/05/19 16:46 Albuterol Sulfate (Proventil Neb) 2.5 mg RQID NEB 02/05/19 20:00 Allopurinol (Zyloprim) 100 mg BID PO 02/04/19 21:00 02/05/19 20:47 Aspirin (Ecotrin) 81 mg DAILY PO 02/05/19 09:00 02/05/19 09:21 Baclofen (Lioresal) 5 mg QHS PO 02/04/19 21:00 02/05/19 23:00 Carvedilol (COReg) 12.5 mg BID PO 02/04/19 21:00 02/06/19 07:45 Clopidogrel Bisulfate (PLAVix) 75 mg DAILY PO 02/05/19 09:00 02/05/19 09:21 Dextrose (Dextrose 50%) 25 ml ASDIRECTED PRN IV SEE LABEL COMMENTS 02/04/19 12:00 Finasteride (Proscar) 5 mg DAILY PO 02/05/19 09:00 02/05/19 09:23 Fluticasone Propionate (Flonase 0.05% Nasal [place]) 2 SPRAYS IN EACH NOSTRIL DAILY PRN NARES CONGESTION 02/04/19 12:00 Furosemide (LASIX injection) 40 mg BID@0900,1700 IV 02/04/19 17:00 02/05/19 07:57 DC 02/04/19 17:42 Gabapentin (Neurontin) 600 mg TID PO 02/04/19 16:00 02/05/19 20:46 Glucagon (Glucagon) 1 mg ASDIRECTED PRN SC SEE LABEL COMMENTS 02/04/19 12:00 Glucose (Glucose) 16 GM ASDIRECTED PRN PO SEE LABEL COMMENTS 02/04/19 12:00 Heparin Sodium (Porcine) (Heparin) 5,000 units Q12H SC 02/04/19 09:00 02/05/19 20:47 Home Med (Med Rec Complete!) ASDIRECTED XX 02/04/19 08:30 02/04/19 08:31 DC Insulin Detemir (Levemir Insulin) 10 units QHS SC 02/04/19 21:00 02/05/19 20:45 Insulin Human Lispro (HumaLOG INSULIN) SEE PROTOCOL TABLE AC SC 02/04/19 12:00 02/05/19 18:28 Insulin Human Lispro (HumaLOG INSULIN) SEE PROTOCOL TABLE QHS [place] 02/04/19 21:00 Morphine Sulfate (Morphine Sulfate Inj) 2 mg Q4H PRN IV MODERATE PAIN (PS 5-7) 02/05/19 16:15 02/05/19 16:25 Ondansetron HCl (ZOFRAN INJection) 4 mg Q8HP PRN IV NAUSEA OR VOMITING 02/05/19 14:00 02/05/19 14:21 Oxybutynin Chloride (Ditropan Xl) 5 mg DAILY PO 02/05/19 09:00 02/05/19 09:21 Potassium Chloride (Micro-K Extencaps) 20 meq Q12H PO 02/04/19 21:00 02/05/19 07:57 DC 02/04/19 21:43 Pravastatin Sodium (Pravachol) 40 mg QPM PO 02/04/19 21:00 02/05/19 20:45 Salmeterol Xinafoate/ Fluticasone (Advair Hfa 115/ 21) 2 puff BID INH 02/04/19 21:00 02/05/19 20:30 Solifenacin (Vesicare) 5 mg DAILY PO 02/05/19 09:00 02/05/19 11:20 Allergies Allergies: Coded Allergies: No Known Allergies (Unverified , 12/30/18) Review of Systems Constitutional: Denies: Fever, Chills, Sweats, Weakness, Malaise Pulmonary: Reports: Dyspnea Cardiovascular: Denies Chest Pain, Denies Palpitations Gastrointestinal: Denies: Nausea, Vomiting Genitourinary: Denies: Dysuria, Frequency, Incontinence, Hematuria Musculoskeletal: Denies: Neck Pain, Back Pain Psych: Reports: Mood Normal Physical Examination General Exam: Alert, Cooperative Chest Exam: Normal air movement Heart Exam: Regular Rhythm Abdomen Exam: Soft; No: Tenderness, Mass Skin Exam: Nl turgor and temperature Neuro Exam: Normal Speech Psych Exam: Mental status NL, Mood NL Vital Signs/I&O Vital Signs Date Time Temp Pulse Resp B/P (MAP) Pulse Ox O2 Delivery O2 Flow Rate FiO2 02/06/19 07:45 90 123/72 02/06/19 04:15 1.0 02/06/19 04:00 97.5 21 93 Nasal Cannula I&O- Last 24 Hours up to 6 AM 02/06/19 06:00 Intake Total 645 ml Output Total 1425 ml Balance -780 ml Laboratory Data 24H Labs Laboratory Tests 2 02/05/19 11:49: Urine Random Creatinine 176.0, Urine Random Sodium 39 02/05/19 12:38: Bedside Glucose (Misc Panel) 128H 02/05/19 17:24: Bedside Glucose (Misc Panel) 135H 02/05/19 20:32: Bedside Glucose (Misc Panel) 131H 02/06/19 05:19: Nucleated Red Blood Cells % (auto) 0.0, Immature Platelet Fraction 5.6, Anion Gap 7L, Glomerular Filtration Rate 31.2L, Calcium Level 8.8, Phosphorus Level 5.1H, Magnesium Level 2.6H, Total Bilirubin 0.8, Aspartate Amino Transf (AST/SGOT) 73H, Alanine Aminotransferase (ALT/SGPT) 43, Alkaline Phosphatase 72, Total Protein 7.7, Albumin 3.3, Albumin/Globulin Ratio 0.75L 02/06/19 07:45: Bedside Glucose (Misc Panel) 119H CBC/BMP Laboratory Tests 02/06/19 05:19 Microbiology Microbiology 02/05/19 Respiratory Virus Panel (PCR) ([facility]) - Final, Complete Assessment The is a 73 y/o M admitted for a CHF exacerbation and PEDRO PABLO. Given the rising Cr and obstructing left ureteral stones, it was recommended that we take him to the OR today for cystoscopy and left ureteral stent placement. After a discussion of the risks and benefits of surgery, informed consent was signed. Plan - to OR for cystoscopy and left ureteral stent placement - ancef 2g IV OCOR - NPO until OR IFEOMA CERNA MD Feb 06, 2019 08:16
[2019-02-06] MEDS: FINASTERIDE 5 MG TAB PO SCH (09:00)
[2019-02-06] MEDS: HEPARIN SOD (PORCINE) 5000 UNITS/ML VIAL SC SCH (09:00)
--- NOTE | 2019-02-06 09:05 | RO ---
DATE OF PROCEDURE: 02/06/2019 PREPROCEDURE DIAGNOSIS: Obstructing left ureteral stone. POSTOPERATIVE DIAGNOSIS: Obstructing left ureteral stone. PROCEDURE: Cystoscopy, left retrograde pyelogram with intraoperative interpretation of images, left ureteral stent placement. SURGEON: Dr. Harpreet Galeana VICE PRESIDENT [employer]: None. ANESTHESIA: MAC. OPERATIVE INDICATIONS: This is a 73-year-old male admitted with a CHF exacerbation and acute on chronic kidney injury. CAT scan was obtained recently and notable for multiple obstructing proximal left ureteral stones. Due to worsening creatinine the decision was made to bring him to the operating room today to decompress the kidney. DESCRIPTION OF PROCEDURE: The patient was brought to the operating room where MAC anesthesia was administered. Prophylactic antibiotics were infused. He was placed in the dorsal lithotomy position and prepped and draped in the usual sterile fashion. A rigid cystoscope was inserted into the urethral meatus and advanced to the bladder. The guidewire up the left collecting system. I then advanced the ureteral access sheath over the wire into the left collecting system. The wire was then removed and clear urine was aspirated through the left kidney. There was a hydronephrotic drip. A retrograde pyelogram was then performed notable for mild to moderate left hydronephrosis with no extravasation. I then advanced the wire back up the left collecting system. I then removed the ureteral catheter and utilized the wire to advance a #7-Tajik x 22-32 mL JJ ureteral stent up to the left collecting system. The wire was removed and there were adequate coils of the stent in the left renal pelvis and in the bladder. The bladder was then emptied of all fluids and this marked the conclusion of the procedure. The patient was then taken out of dorsal lithotomy position, awakened from anesthesia and transferred to the recovery room in stable condition. ESTIMATED BLOOD LOSS: 5 mL. COMPLICATIONS: None. SPECIMENS: None. PLAN: The patient will be monitored and see if the creatinine improves. We will ultimately bring him back to the operating room when he is off his Plavix later on for definitive management of the stones.
--- NOTE | 2019-02-06 09:27 | REP ---
Retrograde pyelogram for left ureteral stent placement: The procedures performed by the urologist. Three intraoperative fluoroscopic views are performed. The final view demonstrates the left ureteral stent proximal and distal pigtails are in satisfactory locations. Fluoroscopic exposure time is 16 seconds. Fluoroscopic images are performed with last image hold technology. These images require no additional radiation. Electronically Signed by Duy Broussard MD 02/06/2019 09:19 A
[2019-02-06] MEDS ORDERED: ONDANSETRON 4MG/2ML VIAL (J2405) IV PRN (09:30)
[2019-02-06] MEDS ORDERED: LR 1,000 ML IV SCH (09:30)
[2019-02-06] MEDS ORDERED: METOCLOPRAMIDE INJ 10MG/2ML VIAL (J2765) IV PRN (09:30)
[2019-02-06] MEDS ORDERED: PERCOCET 5MG/325MG TAB PO PRN (09:30)
[2019-02-06] MEDS ORDERED: fentaNYL 100 MCG/2 ML INJECTION (J3010) IV PRN (09:30)
[2019-02-06] MEDS: ADVAIR HFA 115/21MCG INHALER INH SCH ×2 (10:03→20:06)
[2019-02-06] MEDS: SOLIFENACIN 5 MG TAB PO SCH (10:09)
[2019-02-06] MEDS: CLOPIDOGREL 75 MG TAB PO SCH (10:09)
[2019-02-06] MEDS: GABAPENTIN 300 MG CAP PO SCH ×3 (10:09→20:15)
[2019-02-06] MEDS: ASPIRIN 81 MG ENTERIC TAB PO SCH (10:09)
[2019-02-06] MEDS: oxyBUTYnin *DITROPAN XL* 5 MG TABCR PO SCH (10:10)
[2019-02-06] MEDS: ALLOPURINOL 100 MG TAB PO SCH ×2 (10:10→20:15)
[2019-02-06] MEDS: ACETAMINOPHEN 650MG ER TAB (TYLENOL ARTHRITIS) PO PRN (10:59)
[2019-02-06] MEDS ORDERED: MIRALAX *UNIT DOSE* 17GM PACKET PO ONE (11:00)
[2019-02-06] MEDS: FUROSEMIDE 40 MG/4 ML VIAL (J1940) IV SCH ×2 (11:36→23:43)
[2019-02-06] MEDS: MORPHINE 2 MG/ML 1ML VIAL (J2270) IV PRN (12:38)
--- NOTE | 2019-02-06 14:20 | IPNPDOC ---
Date Seen The patient was seen on 02/06/19. Progress Note HISTORY OF PRESENT ILLNESS: 73-year-old male with past medical history of coronary artery disease status post DC, stents 3, CHF with low ejection fraction, diabetes mellitus, asthma and arthritis presents with shortness of breath. The past few days. He reports that he's gained about 6 pounds over the past 2 weeks, reports paroxysmal nocturnal dyspnea for the past few days, worsening, also having a dry cough along with worsening lower extremity edema. He does not have any other associated symptoms, denies fever, chills, arthralgia, nausea, vomiting, abdominal pain or diarrhea. 02/05/2019 Patient resting in bed, reports slight improvement in dyspnea, continues to have cough, had good urine output overnight, but minimal in the morning. He has no other complaints at this time, denies any chest pain, vomiting, abdominal pain or diarrhea. 02/06/2019 Patient underwent left ureteral stent placement today, seen postop in his room, continues to have generalized malaise and shortness of breath, no other complaints. He denies any chest pain, nausea, vomiting, abdominal pain or diarrhea. 10 point review of system was negative except for above ALLERGIES: Please see below. HOME MEDICATIONS: Please see below. PHYSICAL EXAMINATION: VITAL SIGNS: Please see below. GENERAL: No distress, morbidly obese HEENT: Normocephalic, atraumatic, moist mucous membranes NECK: Supple CARDIOVASCULAR EXAMINATION: Distant, S1, S2 RESPIRATORY EXAMINATION: Scattered rhonchi, diminished, no wheezing ABDOMINAL EXAMINATION: Soft, nontender, nondistended, positive bowel sounds EXTREMITIES: Bilateral lower extremity pitting edema SKIN: No rash NEUROLOGICAL EXAMINATION: Alert and oriented 3, no focal deficits PSYCHIATRIC EXAMINATION: Calm and cooperative LABORATORY DATA: See below. IMAGING: Chest x-ray without acute pathology MICROBIOLOGY: Please see below. ASSESSMENT: 73-year-old male with past medical history of CHF, coronary artery disease, DC, diabetes mellitus and asthma presents with symptoms concerning for fluid overload. PLAN: 1. Acute on chronic systolic heart failure. TTE ordered, fluid restriction 1200 mL per day, monitor I's and O's, weighed daily, restart IV Lasix. 2. Acute kidney injury on chronic kidney disease. renal ultrasound showing moderate left hydronephrosis, status post left ureteral stent placement today, will monitor. 3. Diabetes mellitus. Levemir 10 units at bedtime, sliding scale insulin with fingersticks before every meal see and at bedtime 4. Coronary artery disease. Status post DC 4-5 years ago, 3-4 stents placed at that time, currently stable. Continue optimal medical management (aspirin, Plavix, statin and beta matthew) 5. Asthma Continue home meds. 6. BPH. Continue home Proscar, oxybutynin, and Vesicare DVT prophylaxis: Heparin subcutaneous GI prophylaxis: Not needed VS, I&O, 24H, Fishbone Vital Signs/I&O Vital Signs Date Time Temp Pulse Resp B/P (MAP) Pulse Ox O2 Delivery O2 Flow Rate FiO2 02/06/19 13:15 97.0 81 18 104/64 (77) 92 Nasal Cannula 1.0 I&O- Last 24 Hours up to 6 AM 02/06/19 05:59 Intake Total 645 ml Output Total 1425 ml Balance -780 ml Laboratory Data 24H LABS Laboratory Tests 2 02/05/19 17:24: Bedside Glucose (Misc Panel) 135H 02/05/19 20:32: Bedside Glucose (Misc Panel) 131H 02/06/19 05:19: Nucleated Red Blood Cells % (auto) 0.0, Immature Platelet Fraction 5.6, Anion Gap 7L, Glomerular Filtration Rate 31.2L, Calcium Level 8.8, Phosphorus Level 5.1H, Magnesium Level 2.6H, Total Bilirubin 0.8, Aspartate Amino Transf (AST/SGOT) 73H, Alanine Aminotransferase (ALT/SGPT) 43, Alkaline Phosphatase 72, Total Protein 7.7, Albumin 3.3, Albumin/Globulin Ratio 0.75L 02/06/19 07:45: Bedside Glucose (Misc Panel) 119H 02/06/19 09:00: Bedside Glucose (Misc Panel) 126H 02/06/19 11:41: Bedside Glucose (Misc Panel) 208H CBC/BMP Laboratory Tests 02/06/19 05:19 Microbiology Microbiology 02/05/19 Respiratory Virus Panel (PCR) ([facility]) - Final, Complete LUNA WALTERS MD Feb 06, 2019 14:20
[2019-02-06] MEDS ORDERED: LACTULOSE 20 GM/30 ML SYRUP UD PO ONE (16:00)
[2019-02-06] MEDS: PRAVASTATIN 20 MG TAB PO SCH (20:14)
[2019-02-06] MEDS: LEVEMIR (INSULIN DETEMIR) 1 UNITS/0.01ML SC SCH (20:14)
[2019-02-06] MEDS: BACLOFEN 5MG PER 1/2 TABLET PO SCH (20:15)
[2019-02-07] VITALS (15 sets, daily range): BP systolic 88–128; BP diastolic 48–88; O2SAT 92–95
[2019-02-07] MEDS: MORPHINE 2 MG/ML 1ML VIAL (J2270) IV PRN (00:42)
[2019-02-07 05:14] LABS: HEMATOCRIT 41.7 % (42.0-52.0); HEMOGLOBIN 13.4 g/dl (13.5-17.5); MEAN CORPUSCULAR HEMOGLOBIN 30.2 pg (27.0-33.0); MEAN CORPUSCULAR HGB CONC 32.1 g/dl (32.0-36.5); MEAN CORPUSCULAR VOLUME 93.9 fl (80.0-96.0); RED BLOOD COUNT 4.44 10^6/uL (4.30-6.10); WHITE BLOOD COUNT 4.6 10^3/uL (4.0-10.0)
[2019-02-07 05:17] LABS: PLATELET COUNT, AUTOMATED 70 10^3/uL (150-450)
[2019-02-07 05:43] LABS: CALCIUM LEVEL 8.1 MG/DL (8.8-10.2); CREATININE FOR GFR 2.48 MG/DL (0.70-1.30); GLOMERULAR FILTRATION RATE 27.2 (>42); MAGNESIUM LEVEL 2.6 MG/DL (1.8-2.4); PHOSPHORUS LEVEL 3.9 MG/DL (2.5-4.9); POTASSIUM SERUM 4.6 MEQ/L (3.5-5.1)
[2019-02-07] MEDS: ADVAIR HFA 115/21MCG INHALER INH SCH ×2 (07:40→20:03)
[2019-02-07] MEDS: ALBUTEROL SULFATE 2.5 MG/0.5 ML INH NEB SOLN NEB SCH ×4 (07:45→20:03)
--- NOTE | 2019-02-07 08:38 | IPNPDOC ---
Subjective Review oF Systems Chief Complaint The patient is a 73-year-old male admitted with a reason for visit of Acute Chf,Arthritis,Asthma,Ckd,Diabetes Mellitus. Events since Last Encounter No acute events o/n. Patient denies flank pain. No n/v. No f/c/ns. Objective Physical Examination General Exam: Alert, Cooperative, No Acute Distress ABDOMEN EXAM: Soft Skin Exam: Nl turgor and temperature Neuro Exam: Normal Speech Psych Exam: Mental status NL, Mood NL Vital Signs/I&O Vital Signs Date Time Temp Pulse Resp B/P (MAP) Pulse Ox O2 Delivery O2 Flow Rate FiO2 02/07/19 05:00 94 Nasal Cannula 2.0 02/07/19 04:00 96.7 79 20 98/68 (78) I&O- Last 24 Hours up to 6 AM 02/07/19 06:00 Intake Total 1038 ml Output Total 675 ml Balance 363 ml Laboratory Data Labs 24H Laboratory Tests 2 02/06/19 09:00: Bedside Glucose (Misc Panel) 126H 02/06/19 11:41: Bedside Glucose (Misc Panel) 208H 02/06/19 19:38: Bedside Glucose (Misc Panel) 154H 02/07/19 03:39: Bedside Glucose (Misc Panel) 148H 02/07/19 04:57: Nucleated Red Blood Cells % (auto) 0.0, Anion Gap 6L, Glomerular Filtration Rate 27.2L, Calcium Level 8.1L, Phosphorus Level 3.9#, Magnesium Level 2.6H 02/07/19 08:23: Bedside Glucose (Misc Panel) 161H CBC/BMP Laboratory Tests 02/07/19 04:57 FSBS Laboratory Tests Test 02/06/19 09:00 02/06/19 11:41 02/06/19 19:38 02/07/19 03:39 Range/Units Bedside Glucose (Misc Panel) 126 208 154 148 83-110 MG/DL Test 02/07/19 08:23 Range/Units Bedside Glucose (Misc Panel) 161 83-110 MG/DL Microbiology Microbiology 02/05/19 Respiratory Virus Panel (PCR) ([facility]) - Final, Complete Assessment/Plan Date Seen The patient was seen on 02/07/19. Patient Summary The is a 73 y/o M admitted for a CHF exacerbation and PEDRO PABLO, now POD1 s/p cysto and left ureteral stent placement for obstructing left ureteral stones. Plan/VTE VTE Prophylaxis Ordered?: Yes VTE Exclusion Mechanical Proph: N/A:VTE Prophy Ordered Plan - cont care for CHF and PEDRO PABLO by hospitalist service - will arrange outpatient f/u to get patient scheduled for left ureteroscopy w/ laser lithotripsy and basket stone extraction (will need to be off plavix for 1 wk prior to this surgery) IFEOMA CERNA MD Feb 07, 2019 08:37
[2019-02-07] MEDS: CARVedilol 12.5 MG TAB PO SCH (09:12)
[2019-02-07] MEDS: ASPIRIN 81 MG ENTERIC TAB PO SCH (09:12)
[2019-02-07] MEDS: GABAPENTIN 300 MG CAP PO SCH ×3 (09:12→21:55)
[2019-02-07] MEDS: SOLIFENACIN 5 MG TAB PO SCH (09:12)
[2019-02-07] MEDS: CLOPIDOGREL 75 MG TAB PO SCH (09:12)
[2019-02-07] MEDS: ALLOPURINOL 100 MG TAB PO SCH ×2 (09:13→21:56)
[2019-02-07] MEDS: oxyBUTYnin *DITROPAN XL* 5 MG TABCR PO SCH (09:13)
[2019-02-07] MEDS: FINASTERIDE 5 MG TAB PO SCH (09:13)
[2019-02-07] MEDS: HumaLOG INSULIN (NovoLOG) PER UNIT SC SCH ×4 (09:14→21:00)
[2019-02-07] MEDS ORDERED: SLF 3 ML SYR IV PRN (10:45)
--- NOTE | 2019-02-07 11:11 | ECGEPIP ---
[facility] Test Date: 2019-02-07 Pat Name: SANTY QUINONES Department: Room: [place] [address] Gender: Male [employer]: DELFINA : [id number] Requested By: LUNA Orta Order Number: [id number] Reading MD: Sophie Layton Measurements Intervals [place] Rate: 77 P: 42 OK: 183 QRS: -51 QRSD: 145 T: 86 QT: 384 QTc: 436 Interpretive Statements SINUS RHYTHM LAE MARKED LEFT AXIS DEVIATION LEFT BUNDLE BRANCH BLOCK SIMILAR TO 02/04/19 Electronically Signed on 02-07-2019 11:11:01 EST by Sophie Layton
--- NOTE | 2019-02-07 12:31 | REP ---
Duplex extremity venous ultrasound: Bilateral lower extremity. History: Rule out venous thrombosis. Findings: The deep veins are anechoic and fully compressible from the groin to the popliteal fossa in the left and right lower extremity. Color flow imaging is homogeneous. Spectral Doppler interrogation demonstrates intact respiratory variation in flow and normal manual augmentation of flow. There is no evidence of deep vein thrombosis. Impression: Negative bilateral lower extremity duplex venous ultrasound. No evidence of deep vein thrombosis. Electronically Signed by Nathaniel Wilkins MD 02/07/2019 12:23 P
--- NOTE | 2019-02-07 12:52 | IPNPDOC ---
Date Seen The patient was seen on 02/07/19. Progress Note HISTORY OF PRESENT ILLNESS: 73-year-old male with past medical history of coronary artery disease status post OH, stents 3, CHF with low ejection fraction, diabetes mellitus, asthma and arthritis presents with shortness of breath. The past few days. He reports that he's gained about 6 pounds over the past 2 weeks, reports paroxysmal nocturnal dyspnea for the past few days, worsening, also having a dry cough along with worsening lower extremity edema. He does not have any other associated symptoms, denies fever, chills, arthralgia, nausea, vomiting, abdominal pain or diarrhea. 02/07/2019 Patient continues to have dyspnea on exertion, mild abdominal pain, episode of nonsustained V. tach. today, during which patient felt a little dizzy but recovered without any intervention. He is currently resting comfortably in chair, no other complaints, denies any chest pain, nausea, vomiting or diarrhea. 10 point review of system was negative except for above ALLERGIES: Please see below. HOME MEDICATIONS: Please see below. PHYSICAL EXAMINATION: VITAL SIGNS: Please see below. GENERAL: No distress, morbidly obese HEENT: Normocephalic, atraumatic, moist mucous membranes NECK: Supple CARDIOVASCULAR EXAMINATION: Distant, S1, S2 RESPIRATORY EXAMINATION: Scattered rhonchi in the bases, diminished, no wheezing ABDOMINAL EXAMINATION: Soft, mild tenderness to palpation, nondistended, positi ve bowel sounds EXTREMITIES: Bilateral lower extremity pitting edema SKIN: No rash NEUROLOGICAL EXAMINATION: Alert and oriented 3, no focal deficits PSYCHIATRIC EXAMINATION: Calm and cooperative LABORATORY DATA: See below. IMAGING: Chest x-ray without acute pathology MICROBIOLOGY: Please see below. ASSESSMENT: 73-year-old male with past medical history of CHF, coronary artery disease, OH, diabetes mellitus and asthma presents with symptoms concerning for fluid overload. PLAN: 1. Acute on chronic systolic heart failure. TTE reviewed, fluid restriction 1200 mL per day, monitor I's and O's, weighed daily, clinically patient appears to be close to his baseline given EF of 20%, will hold off on diuresis for now due to worsening renal function. 2. Acute kidney injury on chronic kidney disease. renal ultrasound showing moderate left hydronephrosis, status post left ureteral stent placement, renal function continues to worsen, possibly related to diuretic use, nephrology consulted for further assistance. 3. Thrombocytopenia. Questionable HIT versus DITP. Workup ordered, will monitor, hold Plavix and chemical anticoagulation for now. 4. Diabetes mellitus. Levemir 10 units at bedtime, sliding scale insulin with fingersticks before every meal and at bedtime 5. Coronary artery disease. Status post OH 4-5 years ago, 3-4 stents placed at that time, currently stable. Continue optimal medical management (aspirin, statin and beta matthew) 6. Asthma Continue home meds. 7. BPH. Continue home Proscar, oxybutynin, and Vesicare DVT prophylaxis: Heparin subcutaneous GI prophylaxis: Not needed VS, I&O, 24H, Fishbone Vital Signs/I&O Vital Signs Date Time Temp Pulse Resp B/P (MAP) Pulse Ox O2 Delivery O2 Flow Rate FiO2 02/07/19 08:00 98.5 79 18 116/69 (85) 96 Nasal Cannula 2.0 I&O- Last 24 Hours up to 6 AM 02/07/19 05:59 Intake Total 1038 ml Output Total 675 ml Balance 363 ml Laboratory Data 24H LABS Laboratory Tests 2 02/06/19 19:38: Bedside Glucose (Misc Panel) 154H 02/07/19 03:39: Bedside Glucose (Misc Panel) 148H 02/07/19 04:57: Nucleated Red Blood Cells % (auto) 0.0, Anion Gap 6L, Glomerular Filtration Rate 27.2L, Calcium Level 8.1L, Phosphorus Level 3.9#, Magnesium Level 2.6H 02/07/19 08:23: Bedside Glucose (Misc Panel) 161H 02/07/19 10:08: Troponin I 0.03 02/07/19 11:29: Reticulocyte # (auto) 37.8, Percent Reticulocyte Count 0.9, Reticulocyte Hemoglobin Equivalent 29.2 02/07/19 11:36: Bedside Glucose (Misc Panel) 173H CBC/BMP Laboratory Tests 02/07/19 04:57 Microbiology Microbiology 02/05/19 Respiratory Virus Panel (PCR) ([facility]) - Final, Complete LUNA WALTERS MD Feb 07, 2019 12:52
[2019-02-07 13:08] LABS: PARTIAL THROMBOPLASTIN TIME 30.5 SECONDS (25.0-38.4)
[2019-02-07] MEDS: SLF 3 ML SYR IV SCH ×2 (13:51→21:55)
[2019-02-07] MEDS: MIRALAX *UNIT DOSE* 17GM PACKET PO PRN (13:52)
[2019-02-07] MEDS: ACETAMINOPHEN 650MG ER TAB (TYLENOL ARTHRITIS) PO PRN (13:52)
[2019-02-07 14:10] LABS: INR 1.09; PROTHROMBIN TIME 13.8 SECONDS (11.8-14.0)
[2019-02-07] MEDS ORDERED: BISACODYL 10 MG SUPP PR PRN (20:15)
[2019-02-07] MEDS: PRAVASTATIN 20 MG TAB PO SCH (21:55)
[2019-02-07] MEDS: LEVEMIR (INSULIN DETEMIR) 1 UNITS/0.01ML SC SCH (21:55)
[2019-02-07] MEDS: BACLOFEN 5MG PER 1/2 TABLET PO SCH (21:56)
[2019-02-08] VITALS (7 sets, daily range): BP systolic 102–126; BP diastolic 60–84
[2019-02-08] MEDS: SLF 3 ML SYR IV SCH ×3 (05:01→20:56)
[2019-02-08] MEDS: ONDANSETRON 4MG/2ML VIAL (J2405) IV PRN (05:50)
[2019-02-08 05:57] LABS: HEMATOCRIT 40.2 % (42.0-52.0); HEMOGLOBIN 12.9 g/dl (13.5-17.5); MEAN CORPUSCULAR HEMOGLOBIN 30.1 pg (27.0-33.0); MEAN CORPUSCULAR HGB CONC 32.1 g/dl (32.0-36.5); MEAN CORPUSCULAR VOLUME 93.7 fl (80.0-96.0); PLATELET COUNT, AUTOMATED 100 10^3/uL (150-450); RED BLOOD COUNT 4.29 10^6/uL (4.30-6.10); WHITE BLOOD COUNT 10.5 10^3/uL (4.0-10.0)
[2019-02-08 06:21] LABS: BILIRUBIN,TOTAL 0.6 MG/DL (0.2-1.0); CALCIUM LEVEL 8.4 MG/DL (8.8-10.2); CREATININE FOR GFR 1.6 MG/DL (0.70-1.30); GLOMERULAR FILTRATION RATE 45.1 (>42); MAGNESIUM LEVEL 2.7 MG/DL (1.8-2.4); PHOSPHORUS LEVEL 2.6 MG/DL (2.5-4.9); POTASSIUM SERUM 4.3 MEQ/L (3.5-5.1); TOTAL PROTEIN 6.8 GM/DL (6.4-8.2)
--- NOTE | 2019-02-08 07:21 | CR ---
DATE OF CONSULTATION: 02/07/2019 REQUESTING PHYSICIAN: Dr. Rubio. CONSULTING PHYSICIAN: Dr. Domínguez. REASON FOR CONSULTATION: Acute kidney injury superimposed on chronic kidney disease (CKD) stage III. HISTORY OF PRESENT ILLNESS: Camron Guillen is previously unknown to me. He is a 73-year-old male with a past medical history of severe congestive heart failure with left ventricular ejection fraction of 20% and combined diastolic congestive heart failure. He also has a past medical history of asthma, gout, hypertension, neuropathy, insulin dependent diabetes mellitus, recurrent nephrolithiasis, dyslipidemia, coronary artery disease status post myocardial infarction, status post stents, arthritis. He was admitted on February 04 for acute on chronic systolic congestive heart failure. Attempts at diuresis resulted in worsening renal function. A CT of the abdomen and pelvis demonstrated multiple bilateral kidney stones as well as proximal left ureteral stone causing obstruction. The patient is status post cystoscopy and left ureteral stent placement on February [address] Galeana. His renal function continues to deteriorate and nephrology evaluation was called for the same. The patient was seen, examined by myself this evening at the bedside. He complains of lightheadedness, weakness, dyspnea on exertion. PAST MEDICAL HISTORY: 1. 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 2. Chronic kidney disease stage III. 3. Recurrent nephrolithiasis. 4. Gout. 5. Asthma. 6. Benign prostatic hypertrophy (BPH). 7. Insulin-dependent diabetes mellitus. 8. Dyslipidemia. 9. Obesity. 10. Coronary artery disease. 11. Hypertension. 12. Neuropathy. 13. Arthritis. 14. History of myocardial infarction. PAST SURGICAL HISTORY: 1. Coronary stents. 2. Appendectomy. 3. Multiple urologic procedures including left ureteral stent placement on February 06. 4. Previous laser lithotripsy. 5. Circumcision. ALLERGIES: No known allergies. FAMILY HISTORY: He reports a family history of heart disease and denies a family history of kidney disease. HOME MEDICATIONS: Reviewed and include: - allopurinol 100 mg by mouth twice a day - aspirin 81 mg by mouth daily - baclofen 5 mg by mouth nightly - Carvedilol 12.5 by mouth twice a day - Plavix 75 mg daily - finasteride 5 mg by mouth daily - furosemide 40 mg by mouth daily - gabapentin 600 mg by mouth three times a day - insulin metformin 500 mg by mouth twice a day - oxybutynin 5 mg by mouth daily - pravastatin 40 mg by mouth every evening - Advair one puff inhaled twice a day - Januvia 100 mg by mouth daily - VESIcare 5 mg by mouth daily REVIEW OF SYSTEMS: Constitutional: He denies fevers or chills. He reports generalized fatigue and weakness. Eyes: He denies visual changes or tearing. ENT: He denies rhinorrhea or ear pain. Cardiac: He has a history of combined severe systolic and diastolic congestive heart failure, coronary artery disease and stents. He reports weight gain and dyspnea on exertion. Respiratory: He reports asthma, inhaler use and shortness of breath. Abdomen: He denies nausea or vomiting. Genitourinary: He reports recurrent history of nephrolithiasis, multiple urologic procedures status post lithotripsy in the past and most recent status post left ureteral stent placement. Gastrointestinal (GI): He denies nausea and vomiting. Endocrine: He reports a history of insulin dependent diabetes and obesity. Musculoskeletal: He reports a history of gout. He reports leg swelling. Hematologic: Notable at present for acute thrombocytopenia. The patient denies a prior history of easy bruising or bleeding. Skin: He denies any new pruritus or rash. Neurologic: He denies seizures or syncope. The remainder review of systems is negative or as per history of present illness (HPI). PHYSICAL EXAMINATION: Vital signs: Temperature 96.9, pulse 88, respiratory rate 19, blood pressure 90/60, saturating 96% on 2 liters nasal cannula. Intake yesterday was 1 liter, urine output yesterday was 750, weight in the bed scale today is not recorded. General: The patient is seen lying in bed, elderly male drowsy but arousable, oriented to person, place and situation. HEENT: Extraocular muscles are intact. The tongue is moist. Neck: Neck is supple. Jugular veins are mildly elevated. Cardiac: S1-S2, regular rate. 1+ pitting edema in the legs compression stockings in place. Respiratory: Diminished and distant breath sounds. Prolonged expiration, no crackle or wheeze. Abdomen: Soft, obese and nontender. There are bowel sounds. Genitourinary: Does not show any Louie catheter. Extremities: Extremities show pitting edema and he is wearing compression stockings. There is no clubbing. Skin: Warm and dry. Neurologic: The patient is drowsy but easily arousable able to carry a simple conversation. Oriented to person, place and situation. LABORATORY DATA: Sodium was 131, potassium 4.6, bicarbonate 31, BUN 62, creatinine 2.4, magnesium 2.6, BNP 10,000, platelets 70, hemoglobin 13.4, urinalysis negative for blood and protein. IMAGING: Renal ultrasound on February 05 : Moderate left hydronephrosis. INPATIENT MEDICATIONS: Reviewed by myself. - Tylenol as needed - albuterol as needed - allopurinol 100 mg by mouth twice a day - aspirin 81 mg by mouth daily - baclofen 5 mg by mouth nightly - finasteride 5 mg by mouth daily - Lasix 40 mg IV times two doses - gabapentin 600 mg by mouth three times a day - insulin - morphine as needed - Zofran as needed - oxybutynin 5 mg by mouth daily - pravastatin 40 mg by mouth every evening - Advair - Vesicare 5 mg by mouth daily PROBLEMS: 1. Acute kidney injury nonoliguric superimposed on chronic kidney disease (CKD) stage III. The patient's exact baseline creatinine is unknown. He does not have very much old lab work readily available for review. He does not follow up with nephrology as an outpatient. His present acute kidney injury is felt to be secondary to cardiorenal syndrome plus obstructive uropathy (left hydronephrosis status post ureteral stent placement for obstructing stone). The patient is of volume overloaded and needs to be diuresed however, he is presently having an acute kidney injury and has borderline blood pressures with systolic this afternoon ranging from 88-90s. I have discontinued his Carvedilol. Hypotension will worsen renal hypoperfusion and occult further acute kidney injury. 2. Acute on chronic systolic congestive heart failure. BNP of 10,500. The patient has a combined systolic and diastolic congestive heart failure. He needs to be diuresed however, I want to allow some improvement in his blood pressures prior to reinstituting diuretic therapy. His beta matthew at present is going to be held due to hypotension. He is not a candidate for angiotensin converting enzymes (FABIANO) or angiotensin receptor blockers (ARB). 3. Moderate left hydronephrosis/nephrolithiasis. The patient is status post left ureteral stent placement on February 06. I will plan to get a repeat renal imaging on February 08 to make sure that the hydronephrosis has improved as compared to prior. 4. Hypertension. Blood pressures are soft. Systolic has been 90s-100 for the past two days. His renal function has worsened in the setting of borderline blood pressures and diuretic administration. Discontinue Carvedilol and allow blood pressure to improve prior to reinstituting diuretic therapy. 5. Thrombocytopenia. Venous duplex is negative for deep venous thrombosis (DVT). Primary team is working up the thrombocytopenia further. His urinalysis I know was benign and negative for blood and protein. Thank you for involving me in the care of Mr. Guillen. I will be happy to follow him along with you.
[2019-02-08] MEDS: ADVAIR HFA 115/21MCG INHALER INH SCH ×2 (07:59→20:02)
[2019-02-08] MEDS: HumaLOG INSULIN (NovoLOG) PER UNIT SC SCH ×4 (08:50→20:46)
[2019-02-08] MEDS: SOLIFENACIN 5 MG TAB PO SCH (08:50)
[2019-02-08] MEDS: ASPIRIN 81 MG ENTERIC TAB PO SCH (08:50)
[2019-02-08] MEDS: GABAPENTIN 300 MG CAP PO SCH (08:51)
[2019-02-08] MEDS: ALLOPURINOL 100 MG TAB PO SCH ×2 (08:51→20:56)
[2019-02-08] MEDS: oxyBUTYnin *DITROPAN XL* 5 MG TABCR PO SCH (08:51)
[2019-02-08] MEDS: CLOPIDOGREL 75 MG TAB PO SCH (08:51)
[2019-02-08] MEDS: FINASTERIDE 5 MG TAB PO SCH (08:52)
[2019-02-08] MEDS: ALBUTEROL SULFATE 2.5 MG/0.5 ML INH NEB SOLN NEB SCH ×4 (11:30→20:00)
--- NOTE | 2019-02-08 11:37 | REP ---
Single view abdomen: 02/08/2019. Indication: Abdominal pain. Comparison: 2 days earlier. Findings: The left-sided ureteral catheter is unchanged in configuration/placement. There is no evidence of bowel obstruction. No acute soft tissue abnormalities are detected. Impression: Stable configuration of the left ureteral catheter. No significant changes are detected compared to 2 days earlier. Electronically Signed by Gonzalez Mejia DO 02/08/2019 11:28 A
[2019-02-08] MEDS: ACETAMINOPHEN 650MG ER TAB (TYLENOL ARTHRITIS) PO PRN (12:33)
--- NOTE | 2019-02-08 12:50 | IPNPDOC ---
Date Seen The patient was seen on 02/08/19. Progress Note HISTORY OF PRESENT ILLNESS: 73-year-old male with past medical history of coronary artery disease status post UT, stents 3, CHF with low ejection fraction, diabetes mellitus, asthma and arthritis presents with shortness of breath. The past few days. He reports that he's gained about 6 pounds over the past 2 weeks, reports paroxysmal nocturnal dyspnea for the past few days, worsening, also having a dry cough along with worsening lower extremity edema. He does not have any other associated symptoms, denies fever, chills, arthralgia, nausea, vomiting, abdominal pain or diarrhea. 02/07/2019 Patient continues to have dyspnea on exertion, mild abdominal pain, episode of nonsustained V. tach. today, during which patient felt a little dizzy but recovered without any intervention. He is currently resting comfortably in chair, no other complaints, denies any chest pain, nausea, vomiting or diarrhea. 02/08/2019 Patient continues to experience lower abdominal pain, dyspnea on exertion, no other complaints at this time. She denies any shortness of breath, chest pain, nausea, vomiting or diarrhea at rest. 10 point review of system was negative except for above ALLERGIES: Please see below. HOME MEDICATIONS: Please see below. PHYSICAL EXAMINATION: VITAL SIGNS: Please see below. GENERAL: No distress, morbidly obese HEENT: Normocephalic, atraumatic, moist mucous membranes NECK: Supple CARDIOVASCULAR EXAMINATION: Distant, S1, S2 RESPIRATORY EXAMINATION: Scattered rhonchi in the bases, diminished, no wheezing ABDOMINAL EXAMINATION: Soft, tenderness to palpation of right lower quadrant, suprapubic and left lower quadrant regions, nondistended, positive bowel sounds EXTREMITIES: Bilateral lower extremity pitting edema SKIN: No rash NEUROLOGICAL EXAMINATION: Alert and oriented 3, no focal deficits PSYCHIATRIC EXAMINATION: Calm and cooperative LABORATORY DATA: See below. IMAGING: Chest x-ray without acute pathology MICROBIOLOGY: Please see below. ASSESSMENT: 73-year-old male with past medical history of CHF, coronary artery disease, UT, diabetes mellitus and asthma presents with symptoms concerning for fluid overload. PLAN: 1. Acute on chronic systolic heart failure. TTE reviewed, fluid restriction 1200 mL per day, monitor I's and O's, weighed daily, renal function improved, will restart diuresis. 2. Acute kidney injury on chronic kidney disease. renal ultrasound showed moderate left hydronephrosis, status post left ureteral stent placement, renal function improved after holding Coreg and diuretics, with improvement in blood pressure and renal function will restart diuretics today, nephrology following. 3. Thrombocytopenia. Questionable HIT versus DITP. Workup pending, platelet count improving, will monitor. 4. Diabetes mellitus. Levemir 10 units at bedtime, sliding scale insulin with fingersticks before every meal and at bedtime 5. Coronary artery disease. Status post UT 4-5 years ago, 3-4 stents placed at that time, currently stabl e. Continue optimal medical management (aspirin, Plavix and statin), holding Coreg due to low BP. 6. Asthma Continue home meds. 7. BPH. Continue home Proscar, oxybutynin, and Vesicare DVT prophylaxis: SCDs GI prophylaxis: Not needed VS, I&O, 24H, Fishbone Vital Signs/I&O Vital Signs Date Time Temp Pulse Resp B/P (MAP) Pulse Ox O2 Delivery O2 Flow Rate FiO2 02/08/19 12:00 97.0 74 18 126/77 (93) 02/08/19 11:33 95 Nasal Cannula 2.0 I&O- Last 24 Hours up to 6 AM 02/08/19 05:59 Intake Total 900 ml Output Total 2075 ml Balance -1175 ml Laboratory Data 24H LABS Laboratory Tests 2 02/07/19 16:47: Bedside Glucose (Misc Panel) 175H 02/07/19 20:21: Bedside Glucose (Misc Panel) 163H 02/08/19 05:29: Nucleated Red Blood Cells % (auto) 0.0, Anion Gap 5L, Glomerular Filtration Rate 45.1, Calcium Level 8.4L, Phosphorus Level 2.6#, Magnesium Level 2.7H, Total Bilirubin 0.6, Aspartate Amino Transf (AST/SGOT) 60H, Alanine Aminotransferase (ALT/SGPT) 52, Alkaline Phosphatase 95, Total Protein 6.8, Albumin 3.0L, Albumin/Globulin Ratio 0.79L 02/08/19 11:12: Lactic Acid Level 1.8 02/08/19 11:58: Bedside Glucose (Misc Panel) 218H CBC/BMP Laboratory Tests 02/08/19 05:29 Microbiology Microbiology 02/05/19 Respiratory Virus Panel (PCR) ([facility]) - Final, Complete LUNA WALTERS MD Feb 08, 2019 12:50
--- NOTE | 2019-02-08 13:08 | IPN ---
DATE: 02/08/2019 SUBJECTIVE: Camron was seen and examined this morning at the bedside. He complains of bilateral lower quadrant abdominal pain and cramping. Continues on supplemental oxygen. Vital signs: Temperature 97.0, pulse 74, respiratory rate 18, blood pressure 119/72, saturating 96% on 2 liters nasal cannula. Intake yesterday was 700, urine output yesterday was 1500, net negative 800, weight on the bed scale today is 125.2. GENERAL: The patient is seen lying in bed complaining of abdominal pain, awake and alert. In no acute respiratory distress. Extraocular muscles are intact. Tongue is moist. Neck is supple. Jugular veins appear elevated. Cardiac: S1, S2. Regular rate and rhythm. Respiratory: Diminished breath sounds at the bases but no crackle or rale. Abdomen: Soft and tender to palpation, especially in the bilateral lower quadrant. Extremities: Lower extremities have compression stockings and 1+ pitting edema. Neurologic: He is awake and alert and oriented to person, place, situation. Skin: Normal temperature warm and dry. LABORATORY DATA: White count 10.5, hemoglobin 12.9, platelets improved to 100, sodium 133, potassium 4.3, bicarbonate 33, BUN 62, creatinine 1.6, magnesium 2.7. Inpatient medications reviewed by myself and no change from prior. PROBLEMS: 1. Nonoliguric acute kidney injury superimposed on chronic kidney disease stage III. His exact baseline creatinine is unknown. There is not a lot of old lab work readily available for review. His acute kidney injury is likely secondary to cardiorenal syndrome plus obstructive uropathy (left hydronephrosis status post ureteral stent for obstructing stone). His blood pressures have improved with holding of Carvedilol and his creatinine has improved as well from 2.4 yesterday down to 1.6 today. However his blood urea nitrogen does continue to arise. I have ordered a repeat CT scan of the abdomen and pelvis, noncontrast, in view of his abdominal pain and also to reevaluate the left sided hydronephrosis. I would plan to resume diuretic therapy if his CT scan is benign. 2. Acute on chronic systolic congestive heart failure, BNP of 10,500. He has combined systolic and diastolic congestive heart failure with left ventricular ejection fraction of only 20%. His beta matthew is held due to hypotension and acute kidney injury. His serum creatinine has improved. His diuretics will be restarted if his CT scan of the abdomen and pelvis shows improvement in the left-sided hydronephrosis. 3. Moderate left hydronephrosis status post left ureteral stent placement on February 06. Repeat renal imaging today. In view of the patient's complaint of bilateral lower quadrant abdominal discomfort I am getting a CT scan instead of a kidney ultrasound. 4. Hypertension. Blood pressures are improved. Systolic was soft in the 90s previously on beta matthew and I have held the same. His renal function had previously worsened in the setting of borderline blood pressure with concomitant diuretic administration. 5. Thrombocytopenia. His venous duplex was negative for deep vein thrombosis (DVT). His platelet count has come up to 100. Primary team is working up the thrombocytopenia further. Urinalysis was benign and negative for blood and protein. 6. Abdominal pain. The patient complains of crampy bilateral lower quadrant pain. His lactic acid was drawn this morning and normal. His CT scan is pending. I note that his white count has risen from 4 yesterday up to 10 today. I am getting blood and urine cultures.
--- NOTE | 2019-02-08 15:05 | REP ---
CT ABDOMEN AND PELVIS WITHOUT IV OR ORAL CONTRAST: RENAL STONE PROTOCOL. HISTORY: Reevaluate left-sided hydronephrosis. COMPARISON STUDY: February 04, 2019 and December 09, 2018. CT FINDINGS: A double pigtail left-sided ureteral stent is noted in good position. There is no evidence of intrarenal hydronephrosis or ureteral dilation. There are bilateral intrarenal calculi again noted. There is a proximal ureteral calculus adjacent to the stent in the left mid ureter. There is a parapelvic cyst in the upper pole on the left measuring 1.5 cm in greatest diameter. There is a new finding of mild mural thickening in the descending portion of the duodenum and paraduodenal fat streaking. This was not apparent on 02/04/2019. Question pancreatitis or duodenal injury. There is no evidence of free intraperitoneal air. There is at least one bladder calculus in the lumen of the bladder to the right of midline. A small quantity of air is seen in the urinary bladder. Seminal vesicles are unremarkable. There are prostate calcifications. A normal appendix is visible in the right lower quadrant. IMPRESSION: Left ureteral double pigtail stent in good position. There is a small calculus adjacent to the stent in the left mid ureter. No hydronephrosis is seen on either side. There are bilateral intrarenal calculi. There is one intraluminal bladder calculus. There is a new finding of mural thickening in the descending and transverse duodenum with paraduodenal fat streaking, question pancreatitis versus duodenal injury. Electronically Signed by Nathaniel Wilkins MD 02/08/2019 05:56 P
--- NOTE | 2019-02-08 18:06 | REP ---
Urinary tract sonography: History: Acute renal insufficiency. Comparison sonography February 05, 2019. Comparison CT study is from earlier this date. Findings: Scanning at the level of the urinary bladder demonstrates intraluminal ureteral stent. Visualized bladder ron are smooth. Renal cortical echogenicity pattern is normal. There is mild separation of central renal sinus echoes in the left kidney. This has improved from the study done January 2019. No hydronephrosis noted on the right. Multiple echogenic shadowing foci are seen bilaterally consistent with intrarenal calculi, the largest of these is 8 mm on the right and 1 cm on the left. There is a 1.4 cm anechoic area in the lower pole of the left kidney which may be a small cyst. Left renal dimensions are 12.5 x 6.1 x 4.6 cm. The right kidney measures 12.9 x 5.7 x 6.2 cm. Impression: Improved left hydronephrosis status post left ureteral stent placement. Intrarenal nephrolithiasis bilaterally. Electronically Signed by Nathaniel Wilkins MD 02/08/2019 06:56 P
[2019-02-08] MEDS: MIRALAX *UNIT DOSE* 17GM PACKET PO PRN (18:13)
[2019-02-08] MEDS: BACLOFEN 5MG PER 1/2 TABLET PO SCH (20:56)
[2019-02-08] MEDS: LEVEMIR (INSULIN DETEMIR) 1 UNITS/0.01ML SC SCH (20:56)
[2019-02-08] MEDS: PRAVASTATIN 20 MG TAB PO SCH (20:56)
[2019-02-08] MEDS ORDERED: FUROSEMIDE 40 MG/4 ML VIAL (J1940) IV ONE (21:00)
[2019-02-09 04:00] VITALS: BP 119/70
[2019-02-09 05:51] LABS: HEMATOCRIT 37.9 % (42.0-52.0); HEMOGLOBIN 12.4 g/dl (13.5-17.5); MEAN CORPUSCULAR HEMOGLOBIN 30.4 pg (27.0-33.0); MEAN CORPUSCULAR HGB CONC 32.7 g/dl (32.0-36.5); MEAN CORPUSCULAR VOLUME 92.9 fl (80.0-96.0); PLATELET COUNT, AUTOMATED 149 10^3/uL (150-450); RED BLOOD COUNT 4.08 10^6/uL (4.30-6.10); WHITE BLOOD COUNT 14.4 10^3/uL (4.0-10.0)
[2019-02-09] MEDS: SLF 3 ML SYR IV SCH ×3 (05:57→15:26)
[2019-02-09] MEDS: ONDANSETRON 4MG/2ML VIAL (J2405) IV PRN ×2 (05:58→15:25)
[2019-02-09] MEDS: MORPHINE 2 MG/ML 1ML VIAL (J2270) IV PRN (05:58)
[2019-02-09] MEDS: MIRALAX *UNIT DOSE* 17GM PACKET PO PRN (05:59)
[2019-02-09 06:14] LABS: CALCIUM LEVEL 7.9 MG/DL (8.8-10.2); CREATININE FOR GFR 1.29 MG/DL (0.70-1.30); GLOMERULAR FILTRATION RATE 57.8 (>42); MAGNESIUM LEVEL 2.2 MG/DL (1.8-2.4); POTASSIUM SERUM 4.3 MEQ/L (3.5-5.1)
[2019-02-09] MEDS: ADVAIR HFA 115/21MCG INHALER INH SCH ×2 (07:27→20:03)
[2019-02-09 08:00] VITALS: BP 114/69
[2019-02-09] MEDS: ALBUTEROL SULFATE 2.5 MG/0.5 ML INH NEB SOLN NEB SCH ×4 (08:00→20:00)
[2019-02-09] MEDS: HumaLOG INSULIN (NovoLOG) PER UNIT SC SCH ×4 (08:44→20:24)
[2019-02-09] MEDS: SOLIFENACIN 5 MG TAB PO SCH (08:44)
[2019-02-09] MEDS: CLOPIDOGREL 75 MG TAB PO SCH (08:44)
[2019-02-09] MEDS: ASPIRIN 81 MG ENTERIC TAB PO SCH (08:45)
[2019-02-09] MEDS: oxyBUTYnin *DITROPAN XL* 5 MG TABCR PO SCH (08:45)
[2019-02-09] MEDS: GABAPENTIN 300 MG CAP PO SCH (08:45)
[2019-02-09] MEDS: ALLOPURINOL 100 MG TAB PO SCH ×2 (08:45→20:30)
[2019-02-09] MEDS: FINASTERIDE 5 MG TAB PO SCH (08:59)
[2019-02-09] MEDS ORDERED: FLEET ENEMA PR ONE (11:45)
[2019-02-09 12:00] VITALS: BP 119/68
[2019-02-09 16:00] VITALS: BP 125/68
[2019-02-09] MEDS: FUROSEMIDE 40 MG/4 ML VIAL (J1940) IV SCH (18:16)
--- NOTE | 2019-02-09 18:24 | IPN ---
DATE: 02/09/2019 SUBJECTIVE: Camron is seen and examined this morning at the bedside. His family is present. He complains of bilateral lower quadrant crampy abdominal pain and constipation. He continues on supplemental oxygen. He had a good response to IV Lasix yesterday and his renal function has significantly improved. VITAL SIGNS: Temperature 96.9, pulse 66, respiratory rate 18, blood pressure 119/68, saturating 94% on one liter nasal cannula. Intake yesterday was 880, urine output yesterday was 3120, net negative 2240. Weight in bed scale today is 96.8 kg which is significantly different from prior and likely inaccurate. GENERAL: The patient is seen lying in bed. Family present at the bedside. Elderly male, awake, alert, oriented and comfortable, in no acute respiratory distress. Extraocular muscles are intact. Tongue is moist. Neck is supple. Jugular veins are mildly elevated. CARDIAC: S1, S2, regular rate and rhythm. Compression stockings present on the legs, 1+ edema. RESPIRATORY: Diminished breath sounds at the bases but no crackles or rales. Abdomen is soft and tender to palpation in the lower quadrant. There are bowel sounds. EXTREMITIES: Negative for clubbing and cyanosis. There is at most 1+ pitting edema. NEUROLOGIC: He is awake, alert and oriented to person, place and situation. SKIN: Normal temperature and turgor. LABORATORY DATA: White count 14.4, hemoglobin 12.4, platelets 149. Sodium 134, potassium 4.3, bicarbonate 34, BUN 45, creatinine 1.2, phosphorus 2.0, magnesium 2.2. Blood culture, no grown for [address] abdomen and pelvis 02/08/2019 shows improvement in his prior hydronephrosis and a left ureteral stent in good position. INPATIENT MEDICATIONS: I started the patient on Lasix 40 mg IV twice a day. Primary team has resumed his Plavix. Primary team started him on Zofran. Remainder of medications are unchanged from prior. PROBLEMS: 1. Nonoliguric acute kidney injury superimposed on chronic kidney disease (CKD), stage III. Exact baseline creatinine unknown. Acute kidney injury is likely secondary to cardiorenal syndrome plus obstructive uropathy. He is status post left ureteral stent for obstructing stone and left hydronephrosis. Imaging shows improvement in his hydronephrosis. He is diuretic responsive. He received Lasix yesterday with more than three liters of urine output. His renal function has improved. Blood urea nitrogen (BUN) and creatinine are both approaching baseline. I have started the patient on Lasix 40 mg IV twice a day. 2. Acute on chronic systolic congestive heart failure and diastolic congestive heart failure, left ventricular ejection fraction of 20%. Continue to hold beta matthew and the patient is going to be diuresed now with Lasix 40 mg IV twice a day and we will continue to monitor his renal function. 3. Moderate left hydronephrosis status post left ureteral stent placement on 02/06/2019. Repeat renal imaging yesterday showed improvement in the hydronephrosis. His renal function on blood work has improved as well. 4. Hypertension. Blood pressures are acceptable. He is being diuresed with IV Lasix. Continue to hold beta matthew. 5. Thrombocytopenia. Venous duplex was negative for deep vein thrombosis (DVT). His platelet count is improving. 6. Leukocytosis. His serum white blood cells (WBCs) are rising up to 14,000. His blood cultures show no growth for 24 hours and his urine culture was likewise negative.
--- NOTE | 2019-02-09 19:38 | IPNPDOC ---
Date Seen The patient was seen on 02/09/19. Progress Note HISTORY OF PRESENT ILLNESS: 73-year-old male with past medical history of coronary artery disease status post NH, stents 3, CHF with low ejection fraction, diabetes mellitus, asthma and arthritis presents with shortness of breath. The past few days. He reports that he's gained about 6 pounds over the past 2 weeks, reports paroxysmal nocturnal dyspnea for the past few days, worsening, also having a dry cough along with worsening lower extremity edema. He does not have any other associated symptoms, denies fever, chills, arthralgia, nausea, vomiting, abdominal pain or diarrhea. 02/07/2019 Patient continues to have dyspnea on exertion, mild abdominal pain, episode of nonsustained V. tach. today, during which patient felt a little dizzy but recovered without any intervention. He is currently resting comfortably in chair, no other complaints, denies any chest pain, nausea, vomiting or diarrhea. 02/08/2019 Patient continues to experience lower abdominal pain, dyspnea on exertion, no other complaints at this time. She denies any shortness of breath, chest pain, nausea, vomiting or diarrhea at rest. 02/09/2019 Patient remains nauseous, threw up once today, also reports continued lower abdominal pain. Patient reports small amounts of BM, has been receiving laxatives, received an enema today with small BM afterwards. He otherwise denies any shortness of breath, chest pain or headache. 10 point review of system was negative except for above ALLERGIES: Please see below. HOME MEDICATIONS: Please see below. PHYSICAL EXAMINATION: VITAL SIGNS: Please see below. GENERAL: No distress, morbidly obese HEENT: Normocephalic, atraumatic, moist mucous membranes NECK: Supple CARDIOVASCULAR EXAMINATION: Distant, S1, S2 RESPIRATORY EXAMINATION: Scattered rhonchi in the bases, diminished, no wheezing ABDOMINAL EXAMINATION: Soft, tenderness to palpation of right lower quadrant, suprapubic and left lower quadrant regions, nondistended, positive bowel sounds EXTREMITIES: Bilateral lower extremity pitting edema SKIN: No rash NEUROLOGICAL EXAMINATION: Alert and oriented 3, no focal deficits PSYCHIATRIC EXAMINATION: Calm and cooperative LABORATORY DATA: See below. IMAGING: Chest x-ray without acute pathology MICROBIOLOGY: Please see below. ASSESSMENT: 73-year-old male with past medical history of CHF, coronary artery disease, NH, diabetes mellitus and asthma presents with symptoms concerning for fluid overload. PLAN: 1. Acute on chronic systolic heart failure. TTE reviewed, fluid restriction 1200 mL per day, monitor I's and O's, weighed daily, renal function improved, diuresing well with IV Lasix, continue Lasix 40 mg IV twice a day. 2. Acute kidney injury on chronic kidney disease. renal ultrasound showed moderate left hydronephrosis, status post left uret eral stent placement, renal function back to baseline, and today, diuresis, nephrology following. 3. Thrombocytopenia. Questionable HIT versus DITP. Workup pending, platelet count improving quickly, will monitor. 4. Diabetes mellitus. Levemir 10 units at bedtime, sliding scale insulin with fingersticks before every meal and at bedtime 5. Coronary artery disease. Status post NH 4-5 years ago, 3-4 stents placed at that time, currently stable. Continue optimal medical management (aspirin, Plavix and statin), holding Coreg due to low BP. 6. Asthma Continue home meds. 7. BPH. Continue home Proscar, oxybutynin, and Vesicare DVT prophylaxis: SCDs GI prophylaxis: Not needed VS, I&O, 24H, Fishbone Vital Signs/I&O Vital Signs Date Time Temp Pulse Resp B/P (MAP) Pulse Ox O2 Delivery O2 Flow Rate FiO2 02/09/19 16:00 97.3 77 18 125/68 (87) 96 Room Air 02/09/19 12:00 1.0 I&O- Last 24 Hours up to 6 AM 02/09/19 06:00 Intake Total 770 ml Output Total 2940 ml Balance -2170 ml Laboratory Data 24H LABS Laboratory Tests 2 02/08/19 20:43: Bedside Glucose (Misc Panel) 179H 02/09/19 05:34: Nucleated Red Blood Cells % (auto) 0.0, Anion Gap 5L, Glomerular Filtration Rate 57.8, Calcium Level 7.9L, Phosphorus Level 2.0#L, Magnesium Level 2.2 02/09/19 12:26: Bedside Glucose (Misc Panel) 181H 02/09/19 17:16: Bedside Glucose (Misc Panel) 165H CBC/BMP Laboratory Tests 02/09/19 05:34 Microbiology Microbiology 02/08/19 Urine Culture - Final, Complete 02/08/19 Blood Culture - Preliminary, Resulted No growth after 24 hours . All specim... 02/05/19 Respiratory Virus Panel (PCR) ([facility]) - Final, Complete LUNA WALTERS MD Feb 09, 2019 19:38
[2019-02-09 20:00] VITALS: BP 115/71
[2019-02-09] MEDS: LEVEMIR (INSULIN DETEMIR) 1 UNITS/0.01ML SC SCH (20:30)
[2019-02-09] MEDS: BACLOFEN 5MG PER 1/2 TABLET PO SCH (20:30)
[2019-02-09] MEDS: PRAVASTATIN 20 MG TAB PO SCH (20:30)
[2019-02-09 23:59] VITALS: BP 110/71
[2019-02-10 04:00] VITALS: BP 116/77
[2019-02-10] MEDS: ONDANSETRON 4MG/2ML VIAL (J2405) IV PRN (05:19)
[2019-02-10] MEDS: SLF 3 ML SYR IV SCH ×3 (05:19→21:26)
[2019-02-10 05:58] LABS: HEMATOCRIT 38.1 % (42.0-52.0); HEMOGLOBIN 11.9 g/dl (13.5-17.5); MEAN CORPUSCULAR HEMOGLOBIN 29.4 pg (27.0-33.0); MEAN CORPUSCULAR HGB CONC 31.2 g/dl (32.0-36.5); MEAN CORPUSCULAR VOLUME 94.1 fl (80.0-96.0); PLATELET COUNT, AUTOMATED 225 10^3/uL (150-450); RED BLOOD COUNT 4.05 10^6/uL (4.30-6.10); WHITE BLOOD COUNT 13.9 10^3/uL (4.0-10.0)
[2019-02-10 06:29] LABS: BILIRUBIN,TOTAL 0.6 MG/DL (0.2-1.0); CALCIUM LEVEL 8.6 MG/DL (8.8-10.2); CREATININE FOR GFR 1.39 MG/DL (0.70-1.30); MAGNESIUM LEVEL 2.8 MG/DL (1.8-2.4); PHOSPHORUS LEVEL 2.2 MG/DL (2.5-4.9); POTASSIUM SERUM 4.2 MEQ/L (3.5-5.1)
[2019-02-10 08:00] VITALS: BP 130/63
[2019-02-10] MEDS: ALBUTEROL SULFATE 2.5 MG/0.5 ML INH NEB SOLN NEB SCH ×4 (08:00→20:00)
[2019-02-10] MEDS: ADVAIR HFA 115/21MCG INHALER INH SCH ×2 (08:14→20:06)
[2019-02-10] MEDS: K-PHOS NEUTRAL 250MG TABLET (SOD.PHOSPHATE/POT.PHOSPHATE) PO SCH ×2 (09:53→13:33)
[2019-02-10] MEDS: FINASTERIDE 5 MG TAB PO SCH (09:53)
[2019-02-10] MEDS: oxyBUTYnin *DITROPAN XL* 5 MG TABCR PO SCH (09:54)
[2019-02-10] MEDS: ASPIRIN 81 MG ENTERIC TAB PO SCH (09:54)
[2019-02-10] MEDS: GABAPENTIN 300 MG CAP PO SCH (09:54)
[2019-02-10] MEDS: SOLIFENACIN 5 MG TAB PO SCH (09:54)
[2019-02-10] MEDS: CLOPIDOGREL 75 MG TAB PO SCH (09:54)
[2019-02-10] MEDS: ALLOPURINOL 100 MG TAB PO SCH ×2 (09:54→21:25)
[2019-02-10] MEDS: FUROSEMIDE 40 MG/4 ML VIAL (J1940) IV SCH ×2 (09:55→18:06)
[2019-02-10] MEDS: HumaLOG INSULIN (NovoLOG) PER UNIT SC SCH ×4 (09:56→21:00)
[2019-02-10 11:45] VITALS: BP 132/80
[2019-02-10 16:00] VITALS: BP 111/52
--- NOTE | 2019-02-10 17:04 | IPN ---
DATE: 02/10/2019 SUBJECTIVE: Although they are not recorded on the electronic medical record (EMR), the patient states that he had multiple bowel movements yesterday, which significantly improved his abdominal pain and he is feeling much better. He also states that his breathing is okay and that he is overall feeling well. OBJECTIVE: Vital Signs: Temperature of 96.9, pulse 83, respiratory rate 18, blood pressure 130/63, saturating 93% on room air. He put out 1260 mL of urine in the last 24 hours. PHYSICAL EXAM: General: Patient is awake, alert, oriented, in no acute distress, resting comfortably in bed. HEENT: Extraocular muscles intact. Pupils equal, round and reactive to light. Mucous membranes moist. Neck: Supple. No appreciable jugular venous distention (JVD). Cardiac: Regular rate and rhythm. Normal S1 and S2. 1+ pitting edema in bilateral lower extremities. Respiratory: Diminished breath sounds bilaterally with no wheezes, crackles, rhonchi. Abdomen: Obese, soft, nontender, nondistended. Positive bowel sounds. Extremities: No clubbing or cyanosis. 1+ pitting edema bilaterally. Neurologic: Awake, alert, oriented. No focal neurologic deficits. Skin: Normal turgor and temperature. LAB REVIEW: White blood cell count of 13.9, hemoglobin 11.9, hematocrit of 38.1, platelet count of 225. Sodium of 134, potassium of 4.2, chloride of 93, bicarbonate of 37, BUN of 41, creatinine of 1.39, glucose of 198, calcium of 8.6, phosphorus of 2.2, magnesium 2.8, albumin (dictation cut off). ASSESSMENT AND PLAN: 1. Nonoliguric acute kidney injury superimposed on chronic kidney disease, stage III. Exact baseline creatinine is unknown. Acute kidney injury ([place]) likely secondary to cardiorenal syndrome plus obstructive uropathy. He is status post left ureteral stent for obstructing stone, left hydronephrosis. Imaging showed improvement in his hydronephrosis, and he has been responsive to his diuretic therapy. We will continue with his IV diuretic therapy until tomorrow, provided he continues to have good urine output and then transition him to oral diuretics. 2. Acute on chronic systolic congestive heart failure and diastolic congestive heart failure with left ventricular ejection fraction of 20%. Will continue to hold beta matthew for the time being and continue to diurese him with 40 mg IV Lasix twice daily while monitoring his renal function. 3. Moderate left hydronephrosis, status post left ureteral stent placement on 02/06/2019. Renal function continues to be stable. Repeat renal imaging two days ago showed improvement of the hydronephrosis. 4. Hypertension. Blood pressures continue to be acceptable. We will continue to diurese him with the IV Lasix as stated Continue to hold his beta matthew. 5. Thrombocytopenia. His platelet count is significantly improved and is now normal. Resolved. 6. Leukocytosis. White blood cell count is somewhat decreased today, but so far he has been afebrile with blood cultures and urine cultures showing no signs of infection, and he is overall asymptomatic.
--- NOTE | 2019-02-10 18:48 | IPNPDOC ---
Date Seen The patient was seen on 02/10/19. Progress Note HISTORY OF PRESENT ILLNESS: 73-year-old male with past medical history of coronary artery disease status post AR, stents 3, CHF with low ejection fraction, diabetes mellitus, asthma and arthritis presents with shortness of breath. The past few days. He reports that he's gained about 6 pounds over the past 2 weeks, reports paroxysmal nocturnal dyspnea for the past few days, worsening, also having a dry cough along with worsening lower extremity edema. He does not have any other associated symptoms, denies fever, chills, arthralgia, nausea, vomiting, abdominal pain or diarrhea. 02/07/2019 Patient continues to have dyspnea on exertion, mild abdominal pain, episode of nonsustained V. tach. today, during which patient felt a little dizzy but recovered without any intervention. He is currently resting comfortably in chair, no other complaints, denies any chest pain, nausea, vomiting or diarrhea. 02/08/2019 Patient continues to experience lower abdominal pain, dyspnea on exertion, no other complaints at this time. She denies any shortness of breath, chest pain, nausea, vomiting or diarrhea at rest. 02/09/2019 Patient remains nauseous, threw up once today, also reports continued lower abdominal pain. Patient reports small amounts of BM, has been receiving laxatives, received an enema today with small BM afterwards. He otherwise denies any shortness of breath, chest pain or headache. 02/10 2019 Patient diuresed well overnight, reports significant improvement in nausea and lower abdominal pain. Shortness of breath is also improved, patient is now wishing to go home. 10 point review of system was negative except for above ALLERGIES: Please see below. HOME MEDICATIONS: Please see below. PHYSICAL EXAMINATION: VITAL SIGNS: Please see below. GENERAL: No distress, morbidly obese HEENT: Normocephalic, atraumatic, moist mucous membranes NECK: Supple CARDIOVASCULAR EXAMINATION: Distant, S1, S2 RESPIRATORY EXAMINATION: Scattered rhonchi in the bases, diminished, no wheezing ABDOMINAL EXAMINATION: Soft, no tenderness to palpation, nondistended, positive bowel sounds EXTREMITIES: Bilateral lower extremity pitting edema, improving SKIN: No rash NEUROLOGICAL EXAMINATION: Alert and oriented 3, no focal deficits PSYCHIATRIC EXAMINATION: Calm and cooperative LABORATORY DATA: See below. IMAGING: Chest x-ray without acute pathology MICROBIOLOGY: Please see below. ASSESSMENT: 73-year-old male with past medical history of CHF, coronary artery disease, AR, diabetes mellitus and asthma presents with symptoms concerning for fluid overload. PLAN: 1. Acute on chronic systolic heart failure. TTE reviewed, fluid restriction 1200 mL per day, monitor I's and O's, weigh daily, renal function at baseline, diuresing well with IV Lasix, continue Lasix 40 mg IV twice a day. Would like to transition to oral diuretics tomorrow. 2. Acute kidney injury on chronic kidney disease. renal ultrasound showed moderate left hydronephrosis, status post left ureteral stent placement, renal function back to baseline, continue diuresis, nephrology following. 3. Thrombocytopenia. Questionable HIT versus DITP. Workup pending, platelet count back to baseline 4. Diabetes mellitus. Levemir 10 units at bedtime, sliding scale insulin with fingersticks before every meal and at bedtime 5. Coronary artery disease. Status post AR 4-5 years ago, 3-4 stents placed at that time, currently stable. Continue optimal medical management (aspirin, Plavix and statin), holding Coreg due to low BP. 6. Asthma Continue home meds. 7. BPH. Continue home Proscar, oxybutynin, and Vesicare DVT prophylaxis: SCDs GI prophylaxis: Not needed VS, [facility] Vital Signs Date Time Temp Pulse Resp B/P (MAP) Pulse Ox O2 Delivery O2 Flow Rate FiO2 02/10/19 16:00 97.3 73 18 111/52 (71) 98 Room Air 02/09/19 12:00 1.0 I&O- Last 24 Hours up to 6 AM 02/10/19 06:00 Intake Total 570 ml Output Total 1140 ml Balance -570 ml Laboratory Data 24H LABS Laboratory Tests 2 02/09/19 19:38: Bedside Glucose (Misc Panel) 173H 02/10/19 05:28: Nucleated Red Blood Cells % (auto) 0.0, Anion Gap 4L, Glomerular Filtration Rate 53.0, Calcium Level 8.6L, Phosphorus Level 2.2L, Magnesium Level 2.8H, Total Bilirubin 0.6, Aspartate Amino Transf (AST/SGOT) 29, Alanine Aminotransferase (ALT/SGPT) 36, Alkaline Phosphatase 87, Total Protein 7.0, Albumin 3.0L, Albumin/Globulin Ratio 0.75L 02/10/19 13:27: Bedside Glucose (Misc Panel) 157H 02/10/19 18:04: Bedside Glucose (Misc Panel) 146H CBC/BMP Laboratory Tests 02/10/19 05:28 Microbiology Microbiology 02/08/19 Urine Culture - Final, Complete 02/08/19 Blood Culture - Preliminary, Resulted No Growth after 48 hours. All Specime... 02/05/19 Respiratory Virus Panel (PCR) ([facility]) - Final, Complete LUNA WALTERS MD Feb 10, 2019 18:48
[2019-02-10 20:00] VITALS: BP 112/65
[2019-02-10] MEDS: BACLOFEN 5MG PER 1/2 TABLET PO SCH (21:25)
[2019-02-10] MEDS: PRAVASTATIN 20 MG TAB PO SCH (21:25)
[2019-02-10] MEDS: LEVEMIR (INSULIN DETEMIR) 1 UNITS/0.01ML SC SCH (21:25)
[2019-02-11] VITALS: BP 110/71
[2019-02-11 04:00] VITALS: BP 112/72
[2019-02-11 05:59] LABS: HEMATOCRIT 32.1 % (42.0-52.0); HEMOGLOBIN 10.2 g/dl (13.5-17.5); MEAN CORPUSCULAR HEMOGLOBIN 30.4 pg (27.0-33.0); MEAN CORPUSCULAR HGB CONC 31.8 g/dl (32.0-36.5); MEAN CORPUSCULAR VOLUME 95.5 fl (80.0-96.0); PLATELET COUNT, AUTOMATED 287 10^3/uL (150-450); RED BLOOD COUNT 3.36 10^6/uL (4.30-6.10); WHITE BLOOD COUNT 15.4 10^3/uL (4.0-10.0)
[2019-02-11 06:14] LABS: CALCIUM LEVEL 8.3 MG/DL (8.8-10.2); CREATININE FOR GFR 1.45 MG/DL (0.70-1.30); GLOMERULAR FILTRATION RATE 50.5 (>42); POTASSIUM SERUM 4.1 MEQ/L (3.5-5.1)
[2019-02-11] MEDS: SLF 3 ML SYR IV SCH ×3 (06:53→20:25)
[2019-02-11] MEDS: ADVAIR HFA 115/21MCG INHALER INH SCH ×2 (07:45→20:05)
[2019-02-11] MEDS: ALBUTEROL SULFATE 2.5 MG/0.5 ML INH NEB SOLN NEB SCH ×4 (07:47→20:00)
[2019-02-11 08:00] VITALS: BP 112/62
[2019-02-11] MEDS: HumaLOG INSULIN (NovoLOG) PER UNIT SC SCH ×4 (09:15→20:25)
[2019-02-11] MEDS: ASPIRIN 81 MG ENTERIC TAB PO SCH (09:15)
[2019-02-11] MEDS: SOLIFENACIN 5 MG TAB PO SCH (09:15)
[2019-02-11] MEDS: FINASTERIDE 5 MG TAB PO SCH (09:15)
[2019-02-11] MEDS: FUROSEMIDE 40 MG/4 ML VIAL (J1940) IV SCH (09:16)
[2019-02-11] MEDS: CLOPIDOGREL 75 MG TAB PO SCH (09:16)
[2019-02-11] MEDS: GABAPENTIN 300 MG CAP PO SCH (09:16)
[2019-02-11] MEDS: ALLOPURINOL 100 MG TAB PO SCH ×2 (09:16→20:25)
[2019-02-11] MEDS: oxyBUTYnin *DITROPAN XL* 5 MG TABCR PO SCH (09:16)
[2019-02-11 12:00] VITALS: BP 114/57
[2019-02-11 12:02] LABS: HEMATOCRIT 29.8 % (42.0-52.0); HEMOGLOBIN 9.4 g/dl (13.5-17.5)
[2019-02-11] MEDS ORDERED: PANTOPRAZOLE 40MG INJ (PROTONIX) (C9113) IV ONE (13:00)
[2019-02-11 14:27] LABS: HAPTOGLOBIN 232 mg/dL (34-200); UNFRACTIONATED HEPARIN HI DOSE <1 % (0-20); UNFRACTIONATED HEPARIN LOW DOS <1 % (0-20)
--- NOTE | 2019-02-11 15:13 | IPN ---
DATE: 02/11/2019 SUBJECTIVE: The patient is seen and examined this morning at the bedside. He offers no complaints today. He passed physical therapy. He continues on supplemental oxygen and has been diuresing well on IV Lasix. His stool occult blood returned back positive. His hemoglobin and hematocrit have been down trending. PHYSICAL EXAMINATION: Vital signs: Temperature 98.0, pulse 75, respiratory rate 18, blood pressure 114/57, saturating 92 to 98% on 2 liters nasal cannula. Intake yesterday was 600, urine output yesterday was 2 liters. Weight on the bed scale today is 115.5. The weights are all wildly discrepant and likely inaccurate. General: The patient is seen walking around the room awake, alert, oriented, comfortable. No acute respiratory distress. He was on room air at the time of my visit. Extraocular muscles are intact. Tongue is moist. Neck is supple. Jugular veins are not elevated. Cardiac: Distant S1, S2. No edema in the legs. Respiratory: Shows diminished breath sounds bilaterally but no crackle or rales. No accessory muscle use. He was on room air at the time of my visit. Abdomen is soft. There is no longer any tenderness to palpation. There are bowel sounds. Extremities: Show no edema or clubbing. Neurologic: He is oriented to person, place, situation. Psychiatric: Calm and cooperative. LABORATORY DATA: Sodium 135, potassium 4.1, bicarbonate 36, BUN 53, creatinine 1.4, hemoglobin 9.4. Stool occult blood was positive. Inpatient medications: I stopped IV Lasix and put him on Lasix 40 mg p.o. twice daily. Primary team has held his Plavix and started him on Protonix . Remainder of medications are unchanged from prior. PROBLEMS: 1. Nonoliguric acute kidney injury superimposed on chronic kidney disease stage III. His exact baseline creatinine is unknown but likely in the low 1s and renal function looks to be at baseline. His acute kidney injury was secondary to cardiorenal syndrome plus obstructive uropathy. He is status post left ureteral stent for obstructing stone and left hydronephrosis. His volume status is improved. I am discontinuing his IV Lasix and putting him on Lasix 40 mg by mouth twice daily. 2. Acute on chronic systolic congestive heart failure / diastolic congestive heart failure. He has a left ventricular ejection fraction of 20%. His volume status has improved over the course of this admission. His blood pressures were initially quite soft and were contributing towards an acute kidney injury, hence his Carvedilol was stopped. His systolic is now in the 110s, which is acceptable, and I have switched him to oral Lasix 40 mg twice daily. Continue to monitor input and output and daily weights. 3. Left hydronephrosis. Status post left ureteral stent placement with repeat imaging showing improvement in hydronephrotic kidney, and the patient has had improved urine output and he will need to follow up with urology as an outpatient. 4. Hypertension. Blood pressures are acceptable now. His beta matthew was discontinued as he was initially quite hypotensive and it was contributing towards the acute kidney injury. Systolic has been stable at around 110 just with diuretic. 5. Worsening anemia, stool occult blood was positive. Despite being diuresed, his hemoglobin has dropped from 14 down to 9.4. His stool occult blood is positive. Primary team has held his Plavix and started him on Protonix. He was previously thrombocytopenic as well; however, that has improved. He may need a GI evaluation.
[2019-02-11] MEDS ORDERED: FUROSEMIDE 40 MG TAB PO SCH (17:00)
--- NOTE | 2019-02-11 17:24 | IPNPDOC ---
Date Seen The patient was seen on 02/11/19. Progress Note HISTORY OF PRESENT ILLNESS: 73-year-old male with past medical history of coronary artery disease status post MD, stents 3, CHF with low ejection fraction, diabetes mellitus, asthma and arthritis presents with shortness of breath. The past few days. He reports that he's gained about 6 pounds over the past 2 weeks, reports paroxysmal nocturnal dyspnea for the past few days, worsening, also having a dry cough along with worsening lower extremity edema. He does not have any other associated symptoms, denies fever, chills, arthralgia, nausea, vomiting, abdominal pain or diarrhea. 02/07/2019 Patient continues to have dyspnea on exertion, mild abdominal pain, episode of nonsustained V. tach. today, during which patient felt a little dizzy but recovered without any intervention. He is currently resting comfortably in chair, no other complaints, denies any chest pain, nausea, vomiting or diarrhea. 02/08/2019 Patient continues to experience lower abdominal pain, dyspnea on exertion, no other complaints at this time. She denies any shortness of breath, chest pain, nausea, vomiting or diarrhea at rest. 02/09/2019 Patient remains nauseous, threw up once today, also reports continued lower abdominal pain. Patient reports small amounts of BM, has been receiving laxatives, received an enema today with small BM afterwards. He otherwise denies any shortness of breath, chest pain or headache. 02/10 2019 Patient diuresed well overnight, reports significant improvement in nausea and lower abdominal pain. Shortness of breath is also improved, patient is now wishing to go home. 02/11/2019 Patient diuresing well, reports having dark stool overnight, had an episode of melena in the morning, patient is downtrending. Patient without any other complaints. 10 point review of system was negative except for above ALLERGIES: Please see below. HOME MEDICATIONS: Please see below. PHYSICAL EXAMINATION: VITAL SIGNS: Please see below. GENERAL: No distress, morbidly obese HEENT: Normocephalic, atraumatic, moist mucous membranes NECK: Supple CARDIOVASCULAR EXAMINATION: Distant, S1, S2 RESPIRATORY EXAMINATION: Clear, diminished, no wheezing ABDOMINAL EXAMINATION: Soft, no tenderness to palpation, nondistended, positive bowel sounds EXTREMITIES: Bilateral lower extremity pitting edema, improving SKIN: No rash NEUROLOGICAL EXAMINATION: Alert and oriented 3, no focal deficits PSYCHIATRIC EXAMINATION: Calm and cooperative LABORATORY DATA: See below. IMAGING: Chest x-ray without acute pathology MICROBIOLOGY: Please see below. ASSESSMENT: 73-year-old male with past medical history of CHF, coronary artery disease, MD, diabetes mellitus and asthma presents with symptoms concerning for fluid overload. PLAN: 1. GI bleed. Patient with melena, stool occult blood positive, H&H is downtrending, possibly upper GI bleed secondary to dual antiplatelet therapy, hold Plavix, Protonix 80 mg IV push 1 followed by 40 mg twice a day, nothing by mouth, GI consulted, case discussed with Dr. Tompkins, plan for endoscopy tomorrow. 2. Acute on chronic systolic heart failure. TTE reviewed, fluid restriction 1200 mL per day, monitor I's and O's, weigh daily, renal function at baseline, diuresing well, now on Lasix by mouth 40 mg twice a day. 3. Acute kidney injury on chronic kidney disease. renal ultrasound showed moderate left hydronephrosis, status post left ureteral stent placement, renal function back to baseline, continue diuresis, nephrology following. 4. Thrombocytopenia. Questionable HIT versus DITP. Workup pending, platelet count back to baseline 5. Diabetes mellitus. Levemir 10 units at bedtime, sliding scale insulin with fingersticks before every meal and at bedtime 6. Coronary artery disease. Status post MD 4-5 years ago, 3-4 stents placed at that time, currently stable. Continue optimal medical management (aspirin and statin), holding Coreg for now. 7. Asthma Continue home meds. 8. BPH. Continue home Proscar, oxybutynin, and Vesicare DVT prophylaxis: SCDs GI prophylaxis: Not needed VS, I&O, 24H, Fishbone Vital Signs/I&O Vital Signs Date Time Temp Pulse Resp B/P (MAP) Pulse Ox O2 Delivery O2 Flow Rate FiO2 02/11/19 12:00 98.0 75 18 114/57 (76) 92 Nasal Cannula 2.0 I&O- Last 24 Hours up to 6 AM 02/11/19 06:00 Intake Total 600 ml Output Total 2295 ml Balance -1695 ml Laboratory Data 24H LABS Laboratory Tests 2 02/10/19 18:04: Bedside Glucose (Misc Panel) 146H 02/10/19 20:58: Bedside Glucose (Misc Panel) 234H 02/11/19 05:36: Nucleated Red Blood Cells % (auto) 0.3H, Anion Gap 5L, Glomerular Filtration Rate 50.5, Calcium Level 8.3L 02/11/19 12:52: Bedside Glucose (Misc Panel) 315H CBC/BMP Laboratory Tests 02/11/19 05:36 02/11/19 11:38 Microbiology Microbiology 02/11/19 Stool Occult Blood ([facility]) - Final, Complete 02/08/19 Urine Culture - Final, Complete 02/08/19 Blood Culture - Preliminary, Resulted No Growth after 72 hours. All specime... 02/05/19 Respiratory Virus Panel (PCR) ([facility]) - Final, Complete LUNA WALTERS MD Feb 11, 2019 17:24
[2019-02-11 17:36] LABS: HEMATOCRIT 28.6 % (42.0-52.0); HEMOGLOBIN 9.3 g/dl (13.5-17.5); MEAN CORPUSCULAR HEMOGLOBIN 30.1 pg (27.0-33.0); MEAN CORPUSCULAR HGB CONC 32.5 g/dl (32.0-36.5); MEAN CORPUSCULAR VOLUME 92.6 fl (80.0-96.0); PLATELET COUNT, AUTOMATED 375 10^3/uL (150-450); RED BLOOD COUNT 3.09 10^6/uL (4.30-6.10); WHITE BLOOD COUNT 17.9 10^3/uL (4.0-10.0)
[2019-02-11 20:00] VITALS: BP 142/70
[2019-02-11] MEDS: PANTOPRAZOLE 40MG INJ (PROTONIX) (C9113) IV SCH (20:24)
[2019-02-11] MEDS: LEVEMIR (INSULIN DETEMIR) 1 UNITS/0.01ML SC SCH (20:24)
[2019-02-11] MEDS: BACLOFEN 5MG PER 1/2 TABLET PO SCH (20:24)
[2019-02-11] MEDS: PRAVASTATIN 20 MG TAB PO SCH (20:25)
[2019-02-11] MEDS ORDERED: diphenhydrAMINE 25 MG CAP PO ONE (23:00)
[2019-02-12] VITALS (11 sets, daily range): BP systolic 94–142; BP diastolic 58–87
[2019-02-12 06:17] LABS: HEMATOCRIT 26.3 % (42.0-52.0); HEMOGLOBIN 8.6 g/dl (13.5-17.5); MEAN CORPUSCULAR HEMOGLOBIN 30.4 pg (27.0-33.0); MEAN CORPUSCULAR HGB CONC 32.7 g/dl (32.0-36.5); MEAN CORPUSCULAR VOLUME 92.9 fl (80.0-96.0); PLATELET COUNT, AUTOMATED 470 10^3/uL (150-450); RED BLOOD COUNT 2.83 10^6/uL (4.30-6.10)
[2019-02-12] MEDS: SLF 3 ML SYR IV SCH ×3 (06:21→21:08)
[2019-02-12 06:41] LABS: CREATININE FOR GFR 1.75 MG/DL (0.70-1.30)
[2019-02-12 06:42] LABS: CALCIUM LEVEL 8.3 MG/DL (8.8-10.2); GLOMERULAR FILTRATION RATE 40.7 (>42); MAGNESIUM LEVEL 2.6 MG/DL (1.8-2.4); POTASSIUM SERUM 4.3 MEQ/L (3.5-5.1)
[2019-02-12] MEDS: HumaLOG INSULIN (NovoLOG) PER UNIT SC SCH ×3 (07:15→16:53)
[2019-02-12] MEDS: ALBUTEROL SULFATE 2.5 MG/0.5 ML INH NEB SOLN NEB SCH ×4 (07:25→20:00)
[2019-02-12] MEDS: ADVAIR HFA 115/21MCG INHALER INH SCH ×2 (07:25→20:34)
[2019-02-12] MEDS ORDERED: HumaLOG INSULIN (NovoLOG) PER UNIT SC ONE (09:30)
[2019-02-12] MEDS: ONDANSETRON 4MG/2ML VIAL (J2405) IV PRN ×2 (09:37→17:26)
[2019-02-12] MEDS: ALLOPURINOL 100 MG TAB PO SCH ×2 (09:38→21:07)
[2019-02-12] MEDS: oxyBUTYnin *DITROPAN XL* 5 MG TABCR PO SCH (09:38)
[2019-02-12] MEDS: GABAPENTIN 300 MG CAP PO SCH (09:38)
[2019-02-12] MEDS: ASPIRIN 81 MG ENTERIC TAB PO SCH (09:38)
[2019-02-12] MEDS: FINASTERIDE 5 MG TAB PO SCH (09:38)
[2019-02-12] MEDS: SOLIFENACIN 5 MG TAB PO SCH (09:38)
[2019-02-12] MEDS: PANTOPRAZOLE 40MG INJ (PROTONIX) (C9113) IV SCH ×2 (09:38→21:07)
[2019-02-12] MEDS ORDERED: NS 1,000 ML IV SCH (13:00)
--- NOTE | 2019-02-12 15:48 | IPNPDOC ---
Date Seen The patient was seen on 02/12/19. Progress Note HISTORY OF PRESENT ILLNESS: 73-year-old male with past medical history of coronary artery disease status post [place], stents 3, CHF with low ejection fraction, diabetes mellitus, asthma and arthritis presents with shortness of breath. The past few days. He reports that he's gained about 6 pounds over the past 2 weeks, reports paroxysmal nocturnal dyspnea for the past few days, worsening, also having a dry cough along with worsening lower extremity edema. He does not have any other associated symptoms, denies fever, chills, arthralgia, nausea, vomiting, abdominal pain or diarrhea. 02/07/2019 Patient continues to have dyspnea on exertion, mild abdominal pain, episode of nonsustained V. tach. today, during which patient felt a little dizzy but recovered without any intervention. He is currently resting comfortably in chair, no other complaints, denies any chest pain, nausea, vomiting or diarrhea. 02/08/2019 Patient continues to experience lower abdominal pain, dyspnea on exertion, no other complaints at this time. She denies any shortness of breath, chest pain, nausea, vomiting or diarrhea at rest. 02/09/2019 Patient remains nauseous, threw up once today, also reports continued lower abdominal pain. Patient reports small amounts of BM, has been receiving laxatives, received an enema today with small BM afterwards. He otherwise denies any shortness of breath, chest pain or headache. 02/10 2019 Patient diuresed well overnight, reports significant improvement in nausea and lower abdominal pain. Shortness of breath is also improved, patient is now wishing to go home. 02/11/2019 Patient diuresing well, reports having dark stool overnight, had an episode of melena in the morning, patient is downtrending. Patient without any other complaints. 02/12/2019 Patient has not had a bowel movement since yesterday, H&H downtrending, scheduled for EGD later today. Patient otherwise reports dyspnea and mild nausea. He denies any abdominal pain at this time. Patient fell earlier today when going to the bathroom, did not injure himself, reports he got tired/dizzy. 10 point review of system was negative except for above ALLERGIES: Please see below. HOME MEDICATIONS: Please see below. PHYSICAL EXAMINATION: VITAL SIGNS: Please see below. GENERAL: No distress, morbidly obese HEENT: Normocephalic, atraumatic, moist mucous membranes NECK: Supple CARDIOVASCULAR EXAMINATION: Distant, S1, S2 RESPIRATORY EXAMINATION: Clear, diminished, no wheezing ABDOMINAL EXAMINATION: Soft, no tenderness to palpation, nondistended, positive bowel sounds EXTREMITIES: Bilateral lower extremity pitting edema, improving SKIN: No rash NEUROLOGICAL EXAMINATION: Alert and oriented 3, no focal deficits PSYCHIATRIC EXAMINATION: Calm and cooperative LABORATORY DATA: See below. IMAGING: Chest x-ray without acute pathology MICROBIOLOGY: Please see below. ASSESSMENT: 73-year-old male with past medical history of CHF, coronary artery disease, [place], diabetes mellitus and asthma presents with symptoms concerning for fluid overload. PLAN: 1. GI bleed. Patient with melena, stool occult blood positive, H&H is downtrending, possibly upper GI bleed secondary to dual antiplatelet therapy, hold Plavix, continue Protonix, nothing by mouth, scheduled for EGD today by Dr. Tompkins, will trend H&H and transfuse as needed, will target a hemoglobin greater than 8 given significant cardiac history. 2. Acute on chronic systolic heart failure. TTE reviewed, fluid restriction 1200 mL per day, monitor I's and O's, weigh daily, renal function at baseline, diuresing well, Lasix held as patient is nothing by mouth and volume status appears to be close to his baseline. 3. Acute kidney injury on chronic kidney disease. renal ultrasound showed moderate left hydronephrosis, status post left ureteral stent placement, renal function back to baseline, nephrology following. 4. Thrombocytopenia. Unknown etiology, resolved. Workup negative, platelet count back to baseline 5. Diabetes mellitus. Levemir 10 units at bedtime, sliding scale insulin with fingersticks before every meal and at bedtime 6. Coronary artery disease. Status post [place] 4-5 years ago, 3-4 stents placed at that time, currently stable. Continue optimal medical management (aspirin and statin), holding Coreg for now. 7. Asthma Continue home meds. 8. BPH. Continue home Proscar, oxybutynin, and Vesicare DVT prophylaxis: SCDs GI prophylaxis: Protonix VS, I&O, 24H, Fishbone Vital Signs/I&O Vital Signs Date Time Temp Pulse Resp B/P (MAP) Pulse Ox O2 Delivery O2 Flow Rate FiO2 02/12/19 12:00 96.1 89 20 94/58 (70) 100 Nasal Cannula 2.0 I&O- Last 24 Hours up to 6 AM 02/12/19 06:00 Intake Total 368 ml Output Total 2175 ml Balance -1807 ml Laboratory Data 24H LABS Laboratory Tests 2 02/11/19 17:19: Nucleated Red Blood Cells % (auto) 0.3H 02/11/19 17:30: Bedside Glucose (Misc Panel) 216H 02/11/19 20:15: Bedside Glucose (Misc Panel) 214H 02/12/19 05:44: Nucleated Red Blood Cells % (auto) 0.5H, Anion Gap 10, Glomerular Filtration Rate 40.7L, Calcium Level 8.3L, Phosphorus Level 4.0#, Magnesium Level 2.6H 02/12/19 12:05: Bedside Glucose (Misc Panel) 248H CBC/BMP Laboratory Tests 02/11/19 17:19 02/12/19 05:44 Microbiology Microbiology 02/11/19 Stool Occult Blood ([facility]) - Final, Complete 02/08/19 Urine Culture - Final, Complete 02/08/19 Blood Culture - Preliminary, Resulted No Growth after 72 hours. All specime... 02/05/19 Respiratory Virus Panel (PCR) ([facility]) - Final, Complete LUNA WALTERS MD Feb 12, 2019 15:48
[2019-02-12 16:16] LABS: HEMATOCRIT 25.8 % (42.0-52.0); HEMOGLOBIN 8.2 g/dl (13.5-17.5); MEAN CORPUSCULAR HEMOGLOBIN 30.4 pg (27.0-33.0); MEAN CORPUSCULAR HGB CONC 31.8 g/dl (32.0-36.5); MEAN CORPUSCULAR VOLUME 95.6 fl (80.0-96.0); PLATELET COUNT, AUTOMATED 441 10^3/uL (150-450); WHITE BLOOD COUNT 17.2 10^3/uL (4.0-10.0)
--- NOTE | 2019-02-12 18:17 | IPN ---
DATE: 02/12/2019 SUBJECTIVE: Patient is seen and examined this morning at bedside. He reports that he is having a difficult time breathing and feels like his belly is quite tender today. He is supposed to go for an esophagogastroduodenoscopy (EGD) sometime today with Dr. Tompkins, as he had some hematemesis and black, tarry stool suspicious for an upper gastrointestinal (GI) bleed. OBJECTIVE: Vital signs: Temperature 96.2, pulse 93, respiratory rate 20, blood pressure 118/74, saturating 96% on 2 liters nasal cannula. He put out 2300 mL of urine in the last 24 hours. PHYSICAL EXAMINATION: GENERAL: Patient is awake, alert, oriented in mild distress, sitting comfortably in bed. He does not appear to be in any sort of respiratory distress during the visit. HEENT: Head is normocephalic, atraumatic. Extraocular muscles intact (EOMI). Mucous membranes moist. NECK: Supple. No jugular venous distention (JVD). CARDIAC: Distant heart sounds, distant S1 and S2. Regular rate and rhythm. No peripheral edema in bilateral lower extremities. RESPIRATORY: Diminished breath sounds bilaterally with no wheezes, crackles, rhonchi, and no accessory muscle use. ABDOMEN: Soft, diffusely tender to palpation. Positive bowel sounds. EXTREMITIES: No edema or clubbing. NEUROLOGIC: He is oriented to person, place, and situation. No focal neurologic deficits. LABORATORY REVIEW: White blood cell count of 22, hematocrit of 8.6, hematocrit of 26.3, platelet count of 470. Sodium 136, potassium 4.3, chloride 93, bicarbonate 33, BUN 59, creatinine 1.75, glucose 228. 1. Nonoliguric acute kidney injury superimposed on chronic kidney disease (CKD), stage III. His exact baseline creatinine is unknown, but it is likely in the low 1's. Yesterday's renal function was looking to be at baseline. His daughter reports that yesterday or early this morning he may have passed out on the toilet as well as had some episodes of hematemesis overnight, which could have contributed to the re-elevation of his creatinine. We will give him 1 liter of normal saline at 75 an hour and keep him off of the IV and oral Lasix at this time. 2. Acute kidney injury systolic congestive heart failure/diastolic congestive heart failure with a left ventricular ejection fraction of 20%. His volume status has improved over the course of this admission, and his blood pressures, which were initially quite soft and likely contributing toward his kidney injury, have improved. We will keep him off his carvedilol for the time being. His systolic blood pressures continue to be okay, and his Lasix has been discontinued. We will gently give him some fluids in light of his recent volume losses due to his upper gastrointestinal (GI) bleed. 3. Left hydronephrosis status post left ureteral stent placement with repeat imaging showing improvement in hydronephrotic kidney. Patient has had improved urine output and will followup with urology as an outpatient. 4. Hypertension. Blood pressures were acceptable yesterday but were a little low this morning, likely secondary to his volume loss. We will continue holding any medications that can contribute to low blood pressure. 5. Worsening anemia with stool hemoccult positive status post hematemesis and passing out this morning. His hemoglobin has dropped from 14 down to 8.6 today. His primary team has consulted GI and stopped his Plavix and started him on Protonix. While he was previously thrombocytopenic, that has improved as well. His platelet count has recovered and is now actually elevated. He will go for an esophagogastroduodenoscopy (EGD) later today with Dr. Tompkins for evaluation of his GI bleed.
[2019-02-12] MEDS ORDERED: FUROSEMIDE 20 MG/2 ML VIAL (J1940) IV ONE (20:00)
[2019-02-12] MEDS: LEVEMIR (INSULIN DETEMIR) 1 UNITS/0.01ML SC SCH (21:07)
[2019-02-12] MEDS: PRAVASTATIN 20 MG TAB PO SCH (21:07)
[2019-02-12] MEDS: BACLOFEN 5MG PER 1/2 TABLET PO SCH (21:07)
[2019-02-12] MEDS: diphenhydrAMINE 25 MG CAP PO SCH (22:52)
[2019-02-13] VITALS (10 sets, daily range): BP systolic 102–144; BP diastolic 53–74
[2019-02-13 05:53] LABS: HEMATOCRIT 24.8 % (42.0-52.0); MEAN CORPUSCULAR HEMOGLOBIN 30.2 pg (27.0-33.0); MEAN CORPUSCULAR HGB CONC 32.3 g/dl (32.0-36.5); MEAN CORPUSCULAR VOLUME 93.6 fl (80.0-96.0); PLATELET COUNT, AUTOMATED 391 10^3/uL (150-450); RED BLOOD COUNT 2.65 10^6/uL (4.30-6.10); WHITE BLOOD COUNT 16.1 10^3/uL (4.0-10.0)
[2019-02-13] MEDS: HumaLOG INSULIN (NovoLOG) PER UNIT SC SCH ×5 (06:00→20:36)
[2019-02-13] MEDS: SLF 3 ML SYR IV SCH ×3 (06:00→20:47)
[2019-02-13 06:15] LABS: CALCIUM LEVEL 7.9 MG/DL (8.8-10.2); CREATININE FOR GFR 1.5 MG/DL (0.70-1.30); GLOMERULAR FILTRATION RATE 48.6 (>42); MAGNESIUM LEVEL 2.6 MG/DL (1.8-2.4); PHOSPHORUS LEVEL 4.1 MG/DL (2.5-4.9); POTASSIUM SERUM 3.8 MEQ/L (3.5-5.1)
[2019-02-13] MEDS ORDERED: SIMETHICONE 40MG/0.6ML DROPS 30ML As Ordered ONE (07:28)
[2019-02-13] MEDS ORDERED: MIDAZOLAM INJ 2 MG/2 ML VIAL (J2250) As Ordered ONE ×2 (07:54→07:57)
[2019-02-13] MEDS ORDERED: fentaNYL 100 MCG/2 ML INJECTION (J3010) As Ordered ONE (07:54)
[2019-02-13] MEDS ORDERED: LIDOCAINE 2% INJ 100 MG/5 ML SDV (FOR ANES.) As Ordered ONE ×2 (07:54→07:58)
[2019-02-13] MEDS ORDERED: PROPOFOL 200 MG/20 ML VIAL As Ordered ONE ×2 (07:54→07:58)
[2019-02-13] MEDS ORDERED: fentaNYL 250 MCG/5 ML INJECTION (J3010) As Ordered ONE (07:57)
[2019-02-13] MEDS ORDERED: ROCURONIUM BROMIDE 50 MG/5 ML VIAL As Ordered ONE (07:58)
[2019-02-13] MEDS ORDERED: METOCLOPRAMIDE INJ 10MG/2ML VIAL (J2765) As Ordered ONE (07:59)
[2019-02-13] MEDS ORDERED: dexameTHASONE 4 MG/ML 1ML VIAL (J1100) As Ordered ONE (07:59)
[2019-02-13] MEDS ORDERED: ONDANSETRON 4MG/2ML VIAL (J2405) As Ordered ONE (07:59)
[2019-02-13] MEDS: ALBUTEROL SULFATE 2.5 MG/0.5 ML INH NEB SOLN NEB SCH ×4 (08:00→19:40)
[2019-02-13] MEDS: ADVAIR HFA 115/21MCG INHALER INH SCH ×2 (08:49→19:40)
[2019-02-13] MEDS: OMEPRAZOLE 20 MG CAP PO SCH ×2 (09:00→20:46)
[2019-02-13] MEDS: SUCRALFATE SUSP 1GM/10ML UD PO SCH ×4 (09:04→20:47)
[2019-02-13] MEDS: ALLOPURINOL 100 MG TAB PO SCH ×2 (09:05→20:46)
[2019-02-13] MEDS: ASPIRIN 81 MG ENTERIC TAB PO SCH (09:05)
[2019-02-13] MEDS: SOLIFENACIN 5 MG TAB PO SCH (09:05)
[2019-02-13] MEDS: PANTOPRAZOLE 40MG INJ (PROTONIX) (C9113) IV SCH (09:05)
[2019-02-13] MEDS: oxyBUTYnin *DITROPAN XL* 5 MG TABCR PO SCH (09:05)
[2019-02-13] MEDS: GABAPENTIN 300 MG CAP PO SCH (09:05)
[2019-02-13] MEDS: FINASTERIDE 5 MG TAB PO SCH (09:06)
--- NOTE | 2019-02-13 09:07 | ROOR ---
Patient Name: Camron Guillen Procedure Date: 02/13/2019 7:15 AM Date of : 1945 Age: 73 Room: Main OR Gender: Male Note Status: Finalized Procedure: Upper GI endoscopy Indications: Iron deficiency anemia, Melena Providers: Guille Tompkins MD Referring MD: 1. No Referring Physician 1. No Referring Physician, Admin. Requesting Provider: Medicines: Monitored Anesthesia Care Complications: No immediate complications. Procedure: Pre-Anesthesia Assessment: - The heart rate, respiratory rate, oxygen saturations, blood pressure, adequacy of pulmonary ventilation, and response to care were monitored throughout the procedure. The Endoscope was introduced through the mouth, and advanced to the second part of duodenum. The upper GI endoscopy was accomplished without difficulty. The patient tolerated the procedure well. Findings: The Z-line was regular and was found 40 cm from the incisors. No other significant abnormalities were identified in a careful examination of the stomach. One non-bleeding cratered duodenal ulcer with pigmented material was found in the duodenal bulb. The exam of the duodenum was otherwise normal. Impression: - Z-line regular, 40 cm from the incisors. - One non-bleeding duodenal ulcer with pigmented material. - No specimens collected. - The examination was otherwise normal. Recommendation: - Patient has a contact number available for emergencies. The signs and symptoms of potential delayed complications were discussed with the patient. Return to normal activities tomorrow. Written discharge instructions were provided to the patient. - High fiber diet. - [facility]. - Use Prilosec (omeprazole) 40 mg PO BID. - Use sucralfate suspension 1 gram PO QID. - The findings and recommendations were discussed with the patient's family. Guille Tompkins MD Guille Tompkins MD 02/13/2019 9:07:11 AM Electronically signed by Guille Tompkins MD Number of Addenda: 0 Note Initiated On: 02/13/2019 7:15 AM Estimated Blood Loss: Estimated blood loss: none.
--- NOTE | 2019-02-13 11:52 | CR ---
DATE OF CONSULTATION: 02/12/2019 This is a 73-year white male with multiple medical problems being seen by gastroenterology for evaluation of melena and apparent new onset of anemia. The patient has had multiple medical problems including he is status post a myocardial infarction and had three cardiac stents placed in 2016. The patient has congestive heart failure (CHF) with a low ejection fraction, diabetes mellitus, asthma, arthritis, angina and has symptoms of shortness of breath. The patient apparently has gained over 6 pounds over two weeks and has had paroxysmal nocturnal dyspnea (PND) for approximately two days prior to admission. He also describes a dry cough and has worsening peripheral edema. He denies any fevers, night sweats or shaking chills. No abdominal pain. 10-point review of systems was negative to the above problems. PAST MEDICAL HISTORY: 1. Congestive heart failure (CHF). 2. Coronary artery disease status post three stents. 3. Myocardial infarction. 4. Diabetes mellitus. 5. Asthma. 6. Renal calculi. 7. Arthritis. PAST SURGICAL HISTORY: 1. Coronary artery stents times three in 2016 and he has been on aspirin and Plavix ever since. 2. Appendectomy. SOCIAL HISTORY: He denies cigarettes, alcohol and drugs. FAMILY HISTORY: Positive for heart disease. MEDICATIONS: As per hospital admission list. APPEARANCE: Well-developed, slightly obese white male in no acute distress. Appears stated age. Chest is clear to auscultation. Cardiovascular exam showed regular rate and rhythm. No murmurs or gallops. Normal physiological split. S1, S2. ABDOMEN: Soft, nontender. No masses, guarding or rebound. No hepatosplenomegaly. Bowel sounds positive. EXTREMITIES: No cyanosis, clubbing or edema. Jeffry's negative. The patient's laboratory studies on admission showed a count of 13 and 41.7. His blood counts were fairly stable until they started to gradually dropped out and the last blood count is on the 02/12/2019, 8.6 and 26.3. His INR was 1. Imaging studies when the patient came in, including abdominal CT on 02/08/2019, showed he has a left ureteral pigtail stent, small calculus in the left mid ureter. No hydronephrosis was seen. There are bilateral intrarenal calculi. There is an intraluminal bladder calculus. The rest of the descending and transverse duodenum was apparently with streaking, possibly consistent with pancreatitis, but otherwise normal study. ANALYSIS: Anemia of unknown etiology. PLAN: Will set the patient up for an esophagogastroduodenoscopy (EGD) in the operating room (OR) evaluation of possible treatment.
--- NOTE | 2019-02-13 14:32 | IPNPDOC ---
Text Note Date of Service The patient was seen on 02/13/19. NOTE Subjective: patient seen and examined at bedside. Patient underwent upper endoscopy today, showing duodenal ulcer. Patietn has no medical complaints this morning. Denies chest pain, dizziness, abdominal pain, N/V/D. Objective: VITAL SIGNS: Please see below. GENERAL: No distress, morbidly obese HEENT: Normocephalic, atraumatic, moist mucous membranes NECK: Supple CARDIOVASCULAR EXAMINATION: Distant, S1, S2 RESPIRATORY EXAMINATION: Clear, diminished, no wheezing ABDOMINAL EXAMINATION: Soft, no tenderness to palpation, nondistended, positive bowel sounds EXTREMITIES: Bilateral lower extremity pitting edema, improving LABORATORY DATA: See below. IMAGING: Chest x-ray without acute pathology MICROBIOLOGY: Please see below. ASSESSMENT: 73-year-old male with past medical history of CHF, coronary artery disease, [place], diabetes mellitus and asthma presents with symptoms concerning for fluid overload. PLAN: 1. GI bleed. s/p EGD = duodenal ulcer 2. Acute on chronic systolic heart failure. TTE reviewed, fluid restriction 1200 mL per day, monitor I's and O's, weigh daily, renal function at baseline, diuresing well, Lasix held as patient is nothing by mouth and volume status appears to be close to his baseline. 3. Acute kidney injury on chronic kidney disease. renal ultrasound showed moderate left hydronephrosis, status post left ureteral stent placement, renal function back to baseline, nephrology following. 4. Thrombocytopenia. Unknown etiology, resolved. Workup negative, platelet count back to baseline 5. Diabetes mellitus. Levemir 10 units at bedtime, sliding scale insulin with fingersticks before every meal and at bedtime 6. Coronary artery disease. Status post [place] 4-5 years ago, 3-4 stents placed at that time, currently stable. Continue optimal medical management (aspirin and statin), holding Coreg for now. 7. Asthma Continue home meds. 8. BPH. Continue home Proscar, oxybutynin, and Vesicare DVT prophylaxis: SCDs VS,Fishbone, I+O VS, Fishbone, I+O Laboratory Tests 02/12/19 15:52 02/13/19 05:26 Vital Signs Date Time Temp Pulse Resp B/P (MAP) Pulse Ox O2 Delivery O2 Flow Rate FiO2 02/13/19 09:00 2.0 02/13/19 08:30 97.0 83 18 102/55 (95) 97 Nasal Cannula I&O- Last 24 Hours up to 6 AM 02/13/19 06:00 Intake Total 2635 ml Output Total 1750 ml Balance 885 ml RAFY PEREZ MD Feb 13, 2019 10:40
[2019-02-13] MEDS: LEVEMIR (INSULIN DETEMIR) 1 UNITS/0.01ML SC SCH (20:44)
[2019-02-13] MEDS: diphenhydrAMINE 25 MG CAP PO SCH (20:46)
[2019-02-13] MEDS: PRAVASTATIN 20 MG TAB PO SCH (20:47)
--- NOTE | 2019-02-13 20:57 | IPN ---
DATE: 02/13/2019 Mr. Guillen is seen this morning on his bedside. His endoscopy was postponed yesterday and he had upper endoscopy done this morning by Dr. Tompkins. The patient was found to have a duodenal ulcer and being treated medically. He was transfused one unit of packed red blood cells (RBCs) yesterday due to a drop in his hemoglobin and hematocrit. He was also given IV fluid on e liter yesterday due to feeling dizzy. On physical exam today, his temperature is 97.0 degrees Fahrenheit, heart rate 84 per minute and respiratory rate 18 per minute. Blood pressure 102/55 mmHg and oxygen saturation 97%. His head is atraumatic. Neck is supple and JVD does not seem to be abnormally elevated. Heart sounds are regular and lungs clear to auscultation. Abdomen soft with epigastric tenderness and bowel sounds are normal. Extremities without any cyanosis or clubbing. Neurologically, he is at his baseline mentation. Today's labs show WBC count 16.1, hemoglobin 8.0 and hematocrit 24.8. Sodium 136, potassium 3.8, CO2 36, BUN 47 and creatinine 1.50. PROBLEMS: 1. Acute kidney injury superimposed on chronic kidney disease. He did have worsening kidney function and creatinine was up to 1.75 yesterday. He was given 1 liter of normal saline and also received 1 unit of packed RBCs. Today's some improvement in BUN and creatinine is noticed. 2. Acute gastrointestinal (GI) bleed with duodenal ulcer and acute blood loss. The patient did receive one unit of packed red blood cells (RBCs) yesterday; however, his hemoglobin is only 8.0. I would recommend one more unit of packed RBCs today without any Lasix given with it. 3. Acute blood loss anemia. The patient has acute GI bleed and requiring transfusions. He already had a upper endoscopy done, which did show duodenal ulcer. The patient is going to have one more unit of packed RBCs today. He will need to be monitored closely for further transfusion needs. 4. Hypotension. His blood pressure remains soft and diuretic should not be given. His volume is somewhat depleted.
[2019-02-13] MEDS: BACLOFEN 5MG PER 1/2 TABLET PO SCH (21:01)
[2019-02-14] VITALS (12 sets, daily range): BP systolic 98–148; BP diastolic 52–67
[2019-02-14] MEDS: SLF 3 ML SYR IV SCH ×3 (05:42→21:17)
[2019-02-14] MEDS: ALBUTEROL SULFATE 2.5 MG/0.5 ML INH NEB SOLN NEB SCH ×4 (08:00→20:00)
[2019-02-14 08:37] LABS: HEMATOCRIT 24.9 % (42.0-52.0); HEMOGLOBIN 7.9 g/dl (13.5-17.5); MEAN CORPUSCULAR HEMOGLOBIN 30.3 pg (27.0-33.0); MEAN CORPUSCULAR HGB CONC 31.7 g/dl (32.0-36.5); MEAN CORPUSCULAR VOLUME 95.4 fl (80.0-96.0); PLATELET COUNT, AUTOMATED 390 10^3/uL (150-450); RED BLOOD COUNT 2.61 10^6/uL (4.30-6.10); WHITE BLOOD COUNT 12.2 10^3/uL (4.0-10.0)
[2019-02-14] MEDS: SUCRALFATE SUSP 1GM/10ML UD PO SCH ×4 (08:50→21:15)
[2019-02-14] MEDS: HumaLOG INSULIN (NovoLOG) PER UNIT SC SCH ×4 (08:50→21:00)
[2019-02-14] MEDS: ASPIRIN 81 MG ENTERIC TAB PO SCH (08:50)
[2019-02-14] MEDS: ALLOPURINOL 100 MG TAB PO SCH ×2 (08:51→21:15)
[2019-02-14] MEDS: SOLIFENACIN 5 MG TAB PO SCH (08:51)
[2019-02-14] MEDS: GABAPENTIN 300 MG CAP PO SCH (08:51)
[2019-02-14] MEDS: OMEPRAZOLE 20 MG CAP PO SCH ×2 (08:51→21:15)
[2019-02-14] MEDS: oxyBUTYnin *DITROPAN XL* 5 MG TABCR PO SCH (08:51)
[2019-02-14] MEDS: FINASTERIDE 5 MG TAB PO SCH (08:52)
[2019-02-14 08:55] LABS: ALBUMIN 2.8 GM/DL (3.2-5.2); BILIRUBIN,TOTAL 0.7 MG/DL (0.2-1.0); CALCIUM LEVEL 7.9 MG/DL (8.8-10.2); CREATININE FOR GFR 1.29 MG/DL (0.70-1.30); GLOMERULAR FILTRATION RATE 57.8 (>42); POTASSIUM SERUM 3.6 MEQ/L (3.5-5.1); TOTAL PROTEIN 6.3 GM/DL (6.4-8.2)
--- NOTE | 2019-02-14 08:58 | IPNPDOC ---
Text Note Date of Service The patient was seen on 02/14/19. NOTE Subjective: patient seen and examined at bedside. EGD showed duodenal ulcer. Patietn has no medical complaints this morning. Denies shortness of breath, chest pain, dizziness, abdominal pain, N/V/D. No bowel movements. Objective: VITAL SIGNS: Please see below. GENERAL: No distress, morbidly obese HEENT: Normocephalic, atraumatic, moist mucous membranes NECK: Supple CARDIOVASCULAR EXAMINATION: Distant, S1, S2 RESPIRATORY EXAMINATION: Clear, diminished, no wheezing ABDOMINAL EXAMINATION: Soft, no tenderness to palpation, nondistended, positive bowel sounds EXTREMITIES: Bilateral lower extremity pitting edema, improving LABORATORY DATA: See below. IMAGING: Chest x-ray without acute pathology MICROBIOLOGY: Please see below. ASSESSMENT: 73-year-old male with past medical history of CHF, coronary artery disease, [place], diabetes mellitus and asthma presents with symptoms concerning for fluid overload. PLAN: # GI bleed. s/p EGD = duodenal ulcer - acute blood loss anemia, Hgb 7.9 today, received 1 unit PRBC yesterday, will transfuse 2 units today. Continue to monitor H/H. #Acute on chronic systolic heart failure. TTE reviewed, fluid restriction 1200 mL per day, monitor I's and O's, weigh daily, renal function at baseline, diuresing well, Lasix held as patient is nothing by mouth and volume status appears to be close to his baseline. # PEDRO PABLO/CKD renal US = moderate left hydronephrosis, s/p left ureteral stent placement, renal function back to baseline, nephrology following - assistance appreciated.. #Thrombocytopenia. Unknown etiology, resolved. Workup negative, platelet count back to baseline #Diabetes mellitus. Levemir 10 units at bedtime, sliding scale insulin with fingersticks before every meal and at bedtime #CAD - d/w cardiology - assistance appreciated Status post [place] 4-5 years ago, 3-4 stents placed at that time, currently sta ble. Continue optimal medical management (aspirin and statin), holding Coreg for now. #Asthma Continue home meds. #BPH. Continue home Proscar, oxybutynin, and Vesicare #DVT prophylaxis: SCDs VS,Fishbone, I+O VS, Fishbone, I+O Laboratory Tests 02/14/19 08:17 Vital Signs Date Time Temp Pulse Resp B/P (MAP) Pulse Ox O2 Delivery O2 Flow Rate FiO2 02/14/19 08:00 97.0 81 20 127/67 (87) 90 Room Air 02/13/19 16:00 2.0 I&O- Last 24 Hours up to 6 AM 02/14/19 06:00 Intake Total 1600 ml Output Total 1250 ml Balance 350 ml RAFY PEREZ MD Feb 14, 2019 08:58
[2019-02-14] MEDS: ADVAIR HFA 115/21MCG INHALER INH SCH ×2 (09:00→20:59)
[2019-02-14 18:43] LABS: HEMATOCRIT 28.1 % (42.0-52.0); HEMOGLOBIN 8.8 g/dl (13.5-17.5)
[2019-02-14] MEDS: PRAVASTATIN 20 MG TAB PO SCH (21:15)
[2019-02-14] MEDS: diphenhydrAMINE 25 MG CAP PO SCH (21:15)
[2019-02-14] MEDS: BACLOFEN 5MG PER 1/2 TABLET PO SCH (21:16)
[2019-02-14] MEDS: LEVEMIR (INSULIN DETEMIR) 1 UNITS/0.01ML SC SCH (21:17)
[2019-02-15] VITALS (15 sets, daily range): BP systolic 96–137; BP diastolic 47–74
[2019-02-15] MEDS ORDERED: diphenhydrAMINE 25 MG CAP PO ONE (03:00)
[2019-02-15] MEDS: ACETAMINOPHEN 650MG ER TAB (TYLENOL ARTHRITIS) PO PRN ×2 (05:13→21:10)
[2019-02-15] MEDS: SLF 3 ML SYR IV SCH ×3 (05:17→21:11)
[2019-02-15 05:48] LABS: HEMOGLOBIN 8.3 g/dl (13.5-17.5); MEAN CORPUSCULAR HEMOGLOBIN 28.8 pg (27.0-33.0); MEAN CORPUSCULAR HGB CONC 30.7 g/dl (32.0-36.5); MEAN CORPUSCULAR VOLUME 93.8 fl (80.0-96.0); PLATELET COUNT, AUTOMATED 315 10^3/uL (150-450); RED BLOOD COUNT 2.88 10^6/uL (4.30-6.10); WHITE BLOOD COUNT 10.4 10^3/uL (4.0-10.0)
--- NOTE | 2019-02-15 06:06 | IPN ---
DATE OF VISIT: 02/14/2019 Mr. Guillen is seen this morning on his bedside. He is lying in the bed as usual and reports that he wants to go home. He denies any nausea, vomiting, dyspnea or chest pain. He stated that he has not been allowed to eat regular diet. PHYSICAL EXAMINATION: VITAL SIGNS: Temperature 98.9 degrees Fahrenheit, heart rate 75 per minute and respiratory rate 16 per minute. Blood pressure 108/58 mmHg and oxygen saturation 92% on room air. His hemoglobin is down to 7.9 today and hematocrit 24.9. WBC count 12.2. Sodium 135, potassium 3.6, BUN 26 and creatinine 1.29. PROBLEMS: 1. Acute kidney injury. Kidney function has improved since he was given intravenous (IV) fluid and a blood transfusion. I feel that his acute kidney injury is probably prerenal. We will continue to hold his diuretic for now. 2. Acute blood loss anemia. The patient continues to have a drop in his hemoglobin. He was given two units of packed red blood cells (RBCs) yesterday and still dropped his hemoglobin slightly today. He is most likely still bleeding and will require further transfusion. 3. Hypotension. This is most likely related to acute blood loss and at this point he should be transfused without any diuretic.
[2019-02-15 06:19] LABS: BLOOD UREA NITROGEN 20 MG/DL (7-18); CALCIUM LEVEL 7.4 MG/DL (8.8-10.2); CARBON DIOXIDE LEVEL 30 MEQ/L (21-32); CHLORIDE LEVEL 98 MEQ/L (98-107); CREATININE FOR GFR 1.23 MG/DL (0.70-1.30); GLOMERULAR FILTRATION RATE > 60.0 (>42); GLUCOSE, FASTING 127 MG/DL (70-100); POTASSIUM SERUM 3.4 MEQ/L (3.5-5.1); SODIUM LEVEL 134 MEQ/L (136-145)
[2019-02-15] MEDS: SUCRALFATE SUSP 1GM/10ML UD PO SCH ×4 (07:56→21:09)
[2019-02-15] MEDS: ASPIRIN 81 MG ENTERIC TAB PO SCH (07:57)
[2019-02-15] MEDS: SOLIFENACIN 5 MG TAB PO SCH (07:57)
[2019-02-15] MEDS: HumaLOG INSULIN (NovoLOG) PER UNIT SC SCH ×4 (07:57→21:00)
[2019-02-15] MEDS: ALLOPURINOL 100 MG TAB PO SCH ×2 (07:58→21:10)
[2019-02-15] MEDS: OMEPRAZOLE 20 MG CAP PO SCH ×2 (07:58→21:10)
[2019-02-15] MEDS: GABAPENTIN 300 MG CAP PO SCH (07:58)
[2019-02-15] MEDS: oxyBUTYnin *DITROPAN XL* 5 MG TABCR PO SCH (07:58)
[2019-02-15] MEDS: FINASTERIDE 5 MG TAB PO SCH (07:59)
[2019-02-15] MEDS: ALBUTEROL SULFATE 2.5 MG/0.5 ML INH NEB SOLN NEB SCH ×4 (08:00→20:00)
[2019-02-15] MEDS ORDERED: POTASSIUM CHLORIDE 10 MEQ SR TABLET PO ONE (09:00)
[2019-02-15] MEDS: ADVAIR HFA 115/21MCG INHALER INH SCH ×2 (09:11→20:15)
[2019-02-15 13:52] LABS: APPEARANCE, URINE CLEAR (CLEAR); BACTERIA, URINE AUTO NEGATIVE (NEGATIVE); BILIRUBIN, URINE AUTO NEGATIVE (NEGATIVE); BLOOD, URINE BLOOD NEGATIVE (NEGATIVE); COLOR, URINE YELLOW (YELLOW); GLUCOSE, URINE (UA) AUTO NEGATIVE (NEGATIVE); KETONE, URINE AUTO NEGATIVE (NEGATIVE); LEUKOCYTE ESTERASE, URINE AUTO 2+ (NEGATIVE); NITRITE, URINE AUTO NEGATIVE (NEGATIVE); PROTEIN, URINE AUTO NEGATIVE (NEGATIVE); RBC, URINE AUTO 1 /HPF (0-3); SQUAMOUS EPITHELIAL CELL UR AU 0 /HPF (0-6); WBC, URINE AUTO 19 /HPF (0-3)
--- NOTE | 2019-02-15 14:11 | IPN ---
DATE: 02/15/2019 Patient is a 73-year-old male who was sitting in his bedside chair today. Patient does not have any complaints today. Per patient's and daughter who are in the room, say he had a bloody bowel movement this morning. Patient is currently being followed by gastroenterology for a gastrointestinal (GI) bleed. Patient had a duodenal ulcer that was found on esophagogastroduodenoscopy (EGD). Patient has so far received four units of packed red blood cells. Patient otherwise, feels well today. Does not have any complaints of nausea, vomiting, dyspnea or chest pain. PHYSICAL EXAMINATION: VITAL SIGNS: Temperature 97.7 degrees Fahrenheit, pulse 79, respiratory rate 18, blood pressure 137/66, pulse oximetry 98% on room air. GENERAL: The patient is an alert and oriented male patient who is sitting in the bedside chair when we walked in. Patient did not appear to be in any acute distress. HEENT: Normocephalic, atraumatic with anicteric sclerae. NECK: Supple with no jugular venous distention (JVD) present. HEART: Regular rate and rhythm. LUNGS: Clear to auscultation bilaterally. EXTREMITIES: Do not show any evidence of edema. LABORATORY DATA: White blood cell count 10.4, hemoglobin 8.3, hematocrit 27.0, platelet count 315. Sodium 134, potassium 3.4, chloride 98, carbon dioxide 30, BUN 20, creatinine 1.23, glucose 127, calcium 7.4. ASSESSMENT/PLAN: 1. Acute kidney injury: Patient's kidney function has improved and his creatinine is now in the normal range. Patient's acute kidney injury was most likely prerenal secondary to hypoperfusion which was secondary to acute blood loss from his gastrointestinal bleed as long as he maintains his volume and the bleeding that has stopped or he gets adequate IV fluid resuscitation or blood transfusions, his kidney function should remain within normal range. We will continue to monitor. 2. Acute blood loss anemia: Patient was transfused two units of packed red blood cells yesterday and had a hemoglobin of 8.8 at 6:00 pm. Patient's hemoglobin this morning was 8.3. Patient also complained of a bloody bowel movement today. He is still most likely bleeding and may require further transfusion. 3. Hypotension: Patient's hypotension is most likely related to acute blood loss.
[2019-02-15] MEDS ORDERED: GOLYTELY SOLN 4000 ML BTL PO ONE (17:00)
--- NOTE | 2019-02-15 18:41 | IPNPDOC ---
Date Seen The patient was seen on 02/15/19. Progress Note HISTORY OF PRESENT ILLNESS: 73-year-old male with past medical history of coronary artery disease status post [place], stents 3, CHF with low ejection fraction, diabetes mellitus, asthma and arthritis . Initially admitted for CHF exacerbation. Patient subsequently developed acute kidney injury secondary to hypotension and obstructive uropathy. Patient underwent stent placement and left ureter by urology, Coreg was held for hypotension, with subsequent improvement in renal function back to baseline. Patient was diuresed with IV Lasix, with great response, was clinically close to baseline when patient developed GI bleed. Plavix discontinued, status post EGD, which showed nonbleeding duodenal ulcer. Patient has continued bleeding since then, received 2 units of packed blood cells yesterday with minimal increase in H&H, had 1 bloody bowel movement overnight and one dark stool with bright red blood earlier today. Patient continues to experience shortness of breath, no other complaints. 10 point review of system was negative except for above ALLERGIES: Please see below. HOME MEDICATIONS: Please see below. PHYSICAL EXAMINATION: VITAL SIGNS: Please see below. GENERAL: No distress, morbidly obese HEENT: Normocephalic, atraumatic, moist mucous membranes NECK: Supple CARDIOVASCULAR EXAMINATION: Distant, S1, S2 RESPIRATORY EXAMINATION: Clear, diminished, no wheezing ABDOMINAL EXAMINATION: Soft, no tenderness to palpation, nondistended, positive bowel sounds EXTREMITIES: Bilateral lower extremity pitting edema, improving SKIN: No rash NEUROLOGICAL EXAMINATION: Alert and oriented 3, no focal deficits PSYCHIATRIC EXAMINATION: Calm and cooperative LABORATORY DATA: See below. MICROBIOLOGY: Please see below. ASSESSMENT: 73-year-old male with past medical history of CHF, coronary artery disease, [place], diabetes mellitus and asthma omitted for CHF with subsequent acute kidney injury and now having GI bleed. PLAN: 1. GI bleed. Status post EGD, found to have nonbleeding ulcer in the duodenum, continues to bleed, status post 4 units of packed red blood cells of 4, will transfuse 2 additional units today, we consulted GI, plan for EGD followed by colonoscopy tomorrow, we'll start bowel prep, nothing by mouth after midnight. Will trend H&H and transfuse as needed. Plavix has been held since he started bleeding. Continue Protonix and Carafate. 2. Acute on chronic systolic heart failure. TTE reviewed, fluid restriction 1200 mL per day, monitor I's and O's, weigh daily, renal function at baseline, holding diuresis at this time due to persistent bleed and nothing by mouth status. Volume status clinically close to baseline, although patient can benefit from further diuresis. 3. Acute kidney injury on chronic kidney disease. renal ultrasound showed moderate left hydronephrosis, status post left ureteral stent placement, renal function back to baseline, nephrology following. 4. Diabetes mellitus. Levemir 10 units at bedtime, sliding scale insulin with fingersticks before every meal and at bedtime 5. Coronary artery disease. Status post [place] 4-5 years ago, 3-4 stents placed at that time, currently stable. Continue optimal medical management (aspirin and statin), holding Coreg and Plavix for now. 6. Asthma Continue home meds. 7. BPH. Continue home Proscar, oxybutynin, and Vesicare DVT prophylaxis: SCDs GI prophylaxis: Protonix and Carafate VS, I&O, 24H, Fishbone Vital Signs/I&O Vital Signs Date Time Temp Pulse Resp B/P (MAP) Pulse Ox O2 Delivery O2 Flow Rate FiO2 02/15/19 18:20 98.0 75 18 108/58 Room Air 02/15/19 18:05 92 02/13/19 16:00 2.0 I&O- Last 24 Hours up to 6 AM 02/15/19 06:00 Intake Total 3125 ml Output Total 1700 ml Balance 1425 ml Laboratory Data 24H LABS Laboratory Tests 2 02/14/19 21:01: Bedside Glucose (Misc Panel) 133H 02/15/19 05:34: Nucleated Red Blood Cells % (auto) 0.2H, Anion Gap 6L, Glomerular Filtration Rate > 60.0, Calcium Level 7.4L 02/15/19 11:41: Bedside Glucose (Misc Panel) 132H 02/15/19 13:22: Urine Color YELLOW, Urine Appearance CLEAR, Urine pH 7.0, Urine Specific [place] 1.010, Urine Protein NEGATIVE, Urine Glucose (Auto)(UA) NEGATIVE, Urine Ketones (Auto) NEGATIVE, Urine Blood NEGATIVE, Urine Nitrite NEGATIVE, Urine Bilirubin NEGATIVE, Urine Urobilinogen 4.0H, Urine Leukocyte Esterase (Auto) 2+H, Urine WBC (Auto) 19H, Urine RBC (Auto) 1, Urine Hyaline Casts (Auto) 0, Urine Bacteria (Auto) NEGATIVE, Urine Squamous Epithelial Cells 0, Urine Sperm (Auto) 02/15/19 17:42: Bedside Glucose (Misc Panel) 124H CBC/BMP Laboratory Tests 02/15/19 05:34 Microbiology Microbiology 02/15/19 Stool Occult Blood ([facility]) - Final, Complete 02/11/19 Stool Occult Blood ([facility]) - Final, Complete 02/08/19 Urine Culture - Final, Complete 02/08/19 Blood Culture - Final, Complete NO GROWTH AFTER 5 DAYS 02/05/19 Respiratory Virus Panel (PCR) ([facility]) - Final, Complete LUNA WALTERS MD Feb 15, 2019 18:41
[2019-02-15] MEDS: LEVEMIR (INSULIN DETEMIR) 1 UNITS/0.01ML SC SCH ×2 (21:00→21:11)
[2019-02-15] MEDS: PRAVASTATIN 20 MG TAB PO SCH (21:09)
[2019-02-15] MEDS: diphenhydrAMINE 25 MG CAP PO SCH (21:10)
[2019-02-15] MEDS: BACLOFEN 5MG PER 1/2 TABLET PO SCH (21:10)
[2019-02-16 04:00] VITALS: BP 120/66
[2019-02-16] MEDS: SLF 3 ML SYR IV SCH ×3 (05:43→21:11)
[2019-02-16 05:56] LABS: HEMATOCRIT 31.6 % (42.0-52.0); HEMOGLOBIN 9.9 g/dl (13.5-17.5); MEAN CORPUSCULAR HEMOGLOBIN 29.1 pg (27.0-33.0); MEAN CORPUSCULAR HGB CONC 31.3 g/dl (32.0-36.5); MEAN CORPUSCULAR VOLUME 92.9 fl (80.0-96.0); PLATELET COUNT, AUTOMATED 321 10^3/uL (150-450); WHITE BLOOD COUNT 9.9 10^3/uL (4.0-10.0)
[2019-02-16 06:13] LABS: BLOOD UREA NITROGEN 14 MG/DL (7-18); CALCIUM LEVEL 8.1 MG/DL (8.8-10.2); CARBON DIOXIDE LEVEL 28 MEQ/L (21-32); CHLORIDE LEVEL 104 MEQ/L (98-107); CREATININE FOR GFR 1.17 MG/DL (0.70-1.30); GLOMERULAR FILTRATION RATE > 60.0 (>42); GLUCOSE, FASTING 115 MG/DL (70-100); MAGNESIUM LEVEL 2.4 MG/DL (1.8-2.4); POTASSIUM SERUM 3.7 MEQ/L (3.5-5.1); SODIUM LEVEL 138 MEQ/L (136-145)
[2019-02-16] MEDS: SUCRALFATE SUSP 1GM/10ML UD PO SCH ×4 (07:30→21:09)
[2019-02-16] MEDS: HumaLOG INSULIN (NovoLOG) PER UNIT SC SCH ×4 (07:30→20:36)
[2019-02-16] MEDS: ADVAIR HFA 115/21MCG INHALER INH SCH ×2 (07:45→20:14)
[2019-02-16] MEDS: ALBUTEROL SULFATE 2.5 MG/0.5 ML INH NEB SOLN NEB SCH ×4 (07:46→20:00)
[2019-02-16 08:00] VITALS: BP 95/50
[2019-02-16] MEDS ORDERED: POTASSIUM CHLORIDE 10 MEQ SR TABLET PO ONE (09:00)
[2019-02-16] MEDS ORDERED: PROPOFOL 200 MG/20 ML VIAL As Ordered ONE ×2 (09:02→10:02)
[2019-02-16] MEDS ORDERED: LIDOCAINE 2% INJ 100 MG/5 ML SDV (FOR ANES.) As Ordered ONE (09:04)
[2019-02-16] MEDS ORDERED: PHENYLephrine HCL 500 MCG/5 ML (100MCG/ML) SYRINGE (J2370) As Ordered ONE ×2 (09:25→10:00)
[2019-02-16] MEDS ORDERED: fentaNYL 100 MCG/2 ML INJECTION (J3010) As Ordered ONE (09:25)
--- NOTE | 2019-02-16 09:38 | ROOR ---
Patient Name: Camron Guillen Procedure Date: 02/16/2019 9:23 AM Date of : 1945 Age: 73 Room: [facility] Gender: Male Note Status: Finalized Procedure: Upper GI endoscopy Indications: Iron deficiency anemia, Recent gastrointestinal bleeding Providers: Guille Tompkins MD Referring MD: 2. Inpatient 2. Inpatient Requesting Provider: Medicines: Monitored Anesthesia Care Complications: No immediate complications. Procedure: Pre-Anesthesia Assessment: - The heart rate, respiratory rate, oxygen saturations, blood pressure, adequacy of pulmonary ventilation, and response to care were monitored throughout the procedure. The Endoscope was introduced through the mouth, and advanced to the second part of duodenum. The upper GI endoscopy was accomplished without difficulty. The patient tolerated the procedure well. Findings: The Z-line was irregular and was found 38 cm from the incisors. A small hiatal hernia was present. No other significant abnormalities were identified in a careful examination of the stomach. One non-bleeding cratered duodenal ulcer with no stigmata of bleeding was found in the duodenal bulb. Impression: - Z-line irregular, 38 cm from the incisors. - Small hiatal hernia. - One non-bleeding duodenal ulcer with no stigmata of bleeding. - No specimens collected. - The examination was otherwise normal. Recommendation: - Patient has a contact number available for emergencies. The signs and symptoms of potential delayed complications were discussed with the patient. Return to normal activities tomorrow. Written discharge instructions were provided to the patient. - High fiber diet. - Discharge patient to home. - Continue present medications. - Return to referring physician. - The findings and recommendations were discussed with the patient's family. Guille Tompkins MD Guille Tompkins MD 02/16/2019 9:37:36 AM Electronically signed by Guille Tompkins MD Number of Addenda: 0 Note Initiated On: 02/16/2019 9:23 AM Estimated Blood Loss: Estimated blood loss: none.
--- NOTE | 2019-02-16 10:09 | ROOR ---
Patient Name: Camron Guillen Procedure Date: 02/16/2019 9:24 AM Date of : 1945 Age: 73 Room: [facility] Gender: Male Note Status: Finalized Procedure: Total Colonoscopy to Cecum + Cold Snare Polypectomy + Hemoclips Indications: Rectal bleeding, Iron deficiency anemia Providers: Guille Tompkins MD Referring MD: 2. Inpatient 2. Inpatient Requesting Provider: Medicines: Monitored Anesthesia Care Complications: No immediate complications. Procedure: Pre-Anesthesia Assessment: - The heart rate, respiratory rate, oxygen saturations, blood pressure, adequacy of pulmonary ventilation, and response to care were monitored throughout the procedure. The Colonoscope was introduced through the anus and advanced to the cecum, identified by appendiceal orifice and ileocecal valve. The colonoscopy was performed without difficulty. The patient tolerated the procedure well. The quality of the bowel preparation was poor. Findings: The perianal and digital rectal examinations were normal. Non-bleeding internal hemorrhoids were found during retroflexion. The hemorrhoids were small and Grade I (internal hemorrhoids that do not prolapse). Multiple small and large-mouthed diverticula were found in the recto-sigmoid colon, sigmoid colon and descending colon. Extensive amounts of stool was found in the entire colon, precluding visualization. Multiple sessile polyps were found in the cecum. The polyps were small in size. These polyps were removed with a cold snare. Resection and retrieval were complete. To prevent bleeding after the polypectomy, one hemostatic clip was successfully placed (MR conditional). There was no bleeding at the end of the procedure. The exam was otherwise without abnormality on direct and retroflexion views. Impression: - Preparation of the colon was poor. - Non-bleeding internal hemorrhoids. - Diverticulosis in the recto-sigmoid colon, in the sigmoid colon and in the descending colon. - Stool in the entire examined colon. - Multiple small polyps in the cecum, removed with a cold snare. Resected and retrieved. Clip (MR conditional) was placed. - The examination was otherwise normal on direct and retroflexion views. - The exam was otherwise normal to the cecum. Recommendation: - Patient has a contact number available for emergencies. The signs and symptoms of potential delayed complications were discussed with the patient. Return to normal activities tomorrow. Written discharge instructions were provided to the patient. - High fiber diet. - Continue present medications. - Await pathology results. - Repeat colonoscopy in 1 year for surveillance based on pathology results. - Return to referring physician. - Telephone GI clinic for pathology results in 1 week. - [facility] to [facility] for [facility] care. Guille Tompkins MD Guille Tompkins MD 02/16/2019 10:09:09 AM Electronically signed by Guille Tompkins MD Number of Addenda: 0 Note Initiated On: 02/16/2019 9:24 AM Estimated Blood Loss: Estimated blood loss: none.
[2019-02-16] MEDS: OMEPRAZOLE 20 MG CAP PO SCH ×2 (11:20→21:10)
[2019-02-16] MEDS: ASPIRIN 81 MG ENTERIC TAB PO SCH (11:20)
[2019-02-16] MEDS: oxyBUTYnin *DITROPAN XL* 5 MG TABCR PO SCH (11:20)
[2019-02-16] MEDS: ALLOPURINOL 100 MG TAB PO SCH ×2 (11:21→21:10)
[2019-02-16] MEDS: GABAPENTIN 300 MG CAP PO SCH (11:21)
[2019-02-16] MEDS: FINASTERIDE 5 MG TAB PO SCH (11:22)
[2019-02-16] MEDS: SOLIFENACIN 5 MG TAB PO SCH (11:27)
[2019-02-16 12:00] VITALS: BP 113/59
[2019-02-16] MEDS ORDERED: TORSEMIDE 20 MG TAB PO ONE (13:00)
[2019-02-16 16:00] VITALS: BP 100/55
--- NOTE | 2019-02-16 19:00 | IPNPDOC ---
Date Seen The patient was seen on 02/16/19. Progress Note HISTORY OF PRESENT ILLNESS: 73-year-old male with past medical history of coronary artery disease status post [place], stents 3, CHF with low ejection fraction, diabetes mellitus, asthma and arthritis . Initially admitted for CHF exacerbation. Patient subsequently developed acute kidney injury secondary to hypotension and obstructive uropathy. Patient underwent stent placement and left ureter by urology, Coreg was held for hypotension, with subsequent improvement in renal function back to baseline. Patient was diuresed with IV Lasix, with great response, was clinically close to baseline when patient developed GI bleed. Plavix discontinued, status post EGD, which showed nonbleeding duodenal ulcer. Patient has continued bleeding since then, received 2 units of packed blood cells yesterday with minimal increase in H&H, had 1 bloody bowel movement overnight and one dark stool with bright red blood earlier today. Patient continues to experience shortness of breath, no other complaints. 02/16/2019 Patient underwent EGD and colonoscopy today, no active source of bleeding identified, poor bowel prep. Patient seen postprocedure, without any complaints, reports dark/bloody BMs during bowel movements overnight while drinking bowel prep. Patient tolerating diet today, without any complaints, no additional bowel movements since procedure. 10 point review of system was negative except for above ALLERGIES: Please see below. HOME MEDICATIONS: Please see below. PHYSICAL EXAMINATION: VITAL SIGNS: Please see below. GENERAL: No distress, morbidly obese HEENT: Normocephalic, atraumatic, moist mucous membranes NECK: Supple CARDIOVASCULAR EXAMINATION: Distant, S1, S2 RESPIRATORY EXAMINATION: Clear, diminished, no wheezing ABDOMINAL EXAMINATION: Soft, no tenderness to palpation, nondistended, positive bowel sounds EXTREMITIES: Bilateral lower extremity pitting edema, improving SKIN: No rash NEUROLOGICAL EXAMINATION: Alert and oriented 3, no focal deficits PSYCHIATRIC EXAMINATION: Calm and cooperative LABORATORY DATA: See below. MICROBIOLOGY: Please see below. ASSESSMENT: 73-year-old male with past medical history of CHF, coronary artery disease, [place], diabetes mellitus and asthma omitted for CHF with subsequent acute kidney injury and now having GI bleed. PLAN: 1. GI bleed. Status post repeat EGD and colonoscopy, no additional findings, no source of bleeding identified, restart diet, will trend H&H and transfuse as needed, if patient continues to bleed, we'll consider bleeding scan/CTA/cor embolization by interventional radiology. Continue Protonix and Carafate. 2. Acute on chronic systolic heart failure. TTE reviewed, fluid restriction 1200 mL per day, monitor I's and O's, weigh daily, renal function at baseline, restart diuresis with torsemide 40 mg by [facility] 1 today. We'll provide additional diuresis tomorrow based on clinical judgment. 3. Acute kidney injury on chronic kidney disease. renal ultrasound showed moderate left hydronephrosis, status post left ureteral stent placement, renal function back to baseline, nephrology signed off. 4. Diabetes mellitus. Levemir 10 units at bedtime, sliding scale insulin with fingersticks before every meal and at bedtime 5. Coronary artery disease. Status post [place] 4-5 years ago, 3-4 stents placed at that time, currently stable. Continue optimal medical management (aspirin and statin), holding Coreg and Plavix for now. 6. Asthma Continue home meds. 7. BPH. Continue home Proscar, oxybutynin, and Vesicare DVT prophylaxis: SCDs GI prophylaxis: Protonix and Carafate VS, I&O, 24H, [facility] Vital Signs/I&O Vital Signs Date Time Temp Pulse Resp B/P (MAP) Pulse Ox O2 Delivery O2 Flow Rate FiO2 02/16/19 16:00 97.0 99 20 100/55 (70) 94 Room Air 02/16/19 10:31 2.0 I&O- Last 24 Hours up to 6 AM 02/16/19 06:00 Intake Total 2055 ml Output Total 1450 ml Balance 605 ml Laboratory Data 24H LABS Laboratory Tests 2 02/15/19 21:07: Bedside Glucose (Misc Panel) 101 02/16/19 05:30: Nucleated Red Blood Cells % (auto) 0.2H, Anion Gap 6L, Glomerular Filtration Rate > 60.0, Calcium Level 8.1L, Magnesium Level 2.4 02/16/19 11:33: Bedside Glucose (Misc Panel) 125H 02/16/19 17:06: Bedside Glucose (Misc Panel) 134H CBC/BMP Laboratory Tests 02/16/19 05:30 Microbiology Microbiology 02/15/19 Stool Occult Blood ([facility]) - Final, Complete 02/11/19 Stool Occult Blood ([facility]) - Final, Complete 02/08/19 Urine Culture - Final, Complete 02/08/19 Blood Culture - Final, Complete NO GROWTH AFTER 5 DAYS LUNA WALTERS MD Feb 16, 2019 19:00
[2019-02-16 20:00] VITALS: BP 90/60
[2019-02-16] MEDS ORDERED: NS 250 ML IV ONE (21:00)
[2019-02-16] MEDS: LEVEMIR (INSULIN DETEMIR) 1 UNITS/0.01ML SC SCH (21:09)
[2019-02-16] MEDS: BACLOFEN 5MG PER 1/2 TABLET PO SCH (21:10)
[2019-02-16] MEDS: diphenhydrAMINE 25 MG CAP PO SCH (21:10)
[2019-02-16] MEDS: PRAVASTATIN 20 MG TAB PO SCH (21:10)
[2019-02-16 21:14] VITALS: BP 110/60
[2019-02-16 21:57] LABS: HEMATOCRIT 35.4 % (42.0-52.0); HEMOGLOBIN 11.1 g/dl (13.5-17.5)
[2019-02-17] VITALS (7 sets, daily range): BP systolic 106–129; BP diastolic 55–80
[2019-02-17] MEDS: ACETAMINOPHEN 650MG ER TAB (TYLENOL ARTHRITIS) PO PRN ×2 (00:36→21:01)
[2019-02-17 05:21] LABS: HEMATOCRIT 29.8 % (42.0-52.0); HEMOGLOBIN 9.5 g/dl (13.5-17.5); MEAN CORPUSCULAR HGB CONC 31.9 g/dl (32.0-36.5); MEAN CORPUSCULAR VOLUME 90.9 fl (80.0-96.0); PLATELET COUNT, AUTOMATED 314 10^3/uL (150-450); RED BLOOD COUNT 3.28 10^6/uL (4.30-6.10); WHITE BLOOD COUNT 10.8 10^3/uL (4.0-10.0)
[2019-02-17 05:47] LABS: CALCIUM LEVEL 7.4 MG/DL (8.8-10.2); CREATININE FOR GFR 1.38 MG/DL (0.70-1.30); GLOMERULAR FILTRATION RATE 53.5 (>42); MAGNESIUM LEVEL 2.1 MG/DL (1.8-2.4); PHOSPHORUS LEVEL 3.1 MG/DL (2.5-4.9); POTASSIUM SERUM 3.7 MEQ/L (3.5-5.1)
[2019-02-17] MEDS: SLF 3 ML SYR IV SCH ×3 (06:13→20:12)
[2019-02-17] MEDS: ADVAIR HFA 115/21MCG INHALER INH SCH ×2 (07:59→20:07)
[2019-02-17] MEDS: ALBUTEROL SULFATE 2.5 MG/0.5 ML INH NEB SOLN NEB SCH ×4 (08:00→20:00)
[2019-02-17] MEDS: SUCRALFATE SUSP 1GM/10ML UD PO SCH ×4 (08:01→20:10)
[2019-02-17] MEDS: ALLOPURINOL 100 MG TAB PO SCH ×2 (08:01→20:11)
[2019-02-17] MEDS: OMEPRAZOLE 20 MG CAP PO SCH ×2 (08:01→20:11)
[2019-02-17] MEDS: oxyBUTYnin *DITROPAN XL* 5 MG TABCR PO SCH (08:02)
[2019-02-17] MEDS: SOLIFENACIN 5 MG TAB PO SCH (08:02)
[2019-02-17] MEDS: GABAPENTIN 300 MG CAP PO SCH (08:02)
[2019-02-17] MEDS: HumaLOG INSULIN (NovoLOG) PER UNIT SC SCH ×4 (08:02→20:01)
[2019-02-17] MEDS: ASPIRIN 81 MG ENTERIC TAB PO SCH (08:02)
[2019-02-17] MEDS: FINASTERIDE 5 MG TAB PO SCH (08:03)
[2019-02-17] MEDS: FUROSEMIDE 40 MG TAB PO SCH (12:21)
[2019-02-17] MEDS: MIRALAX *UNIT DOSE* 17GM PACKET PO PRN (14:36)
--- NOTE | 2019-02-17 18:11 | IPNPDOC ---
Date Seen The patient was seen on 02/17/19. Progress Note HISTORY OF PRESENT ILLNESS: 73-year-old male with past medical history of coronary artery disease status post [place], stents 3, CHF with low ejection fraction, diabetes mellitus, asthma and arthritis . Initially admitted for CHF exacerbation. Patient subsequently developed acute kidney injury secondary to hypotension and obstructive uropathy. Patient underwent stent placement and left ureter by urology, Coreg was held for hypotension, with subsequent improvement in renal function back to baseline. Patient was diuresed with IV Lasix, with great response, was clinically close to baseline when patient developed GI bleed. Plavix discontinued, status post EGD, which showed nonbleeding duodenal ulcer. Patient has continued bleeding since then, received 2 units of packed blood cells yesterday with minimal increase in H&H, had 1 bloody bowel movement overnight and one dark stool with bright red blood earlier today. Patient continues to experience shortness of breath, no other complaints. 02/16/2019 Patient underwent EGD and colonoscopy today, no active source of bleeding identified, poor bowel prep. Patient seen postprocedure, without any complaints, reports dark/bloody BMs during bowel movements overnight while drinking bowel prep. Patient tolerating diet today, without any complaints, no additional bowel movements since procedure. 02/17/2019 Patient without any complaints, mildly hypotensive overnight, received 250 mL bolus, has not had any further bloody BMs overnight. He remains asymptomatic at this time, tolerating diet without difficult. 10 point review of system was negative except for above ALLERGIES: Please see below. HOME MEDICATIONS: Please see below. PHYSICAL EXAMINATION: VITAL SIGNS: Please see below. GENERAL: No distress, morbidly obese HEENT: Normocephalic, atraumatic, moist mucous membranes NECK: Supple CARDIOVASCULAR EXAMINATION: Distant, S1, S2 RESPIRATORY EXAMINATION: Clear, diminished, no wheezing ABDOMINAL EXAMINATION: Soft, no tenderness to palpation, nondistended, positive bowel sounds EXTREMITIES: Bilateral lower extremity pitting edema, improving SKIN: No rash NEUROLOGICAL EXAMINATION: Alert and oriented 3, no focal deficits PSYCHIATRIC EXAMINATION: Calm and cooperative LABORATORY DATA: See below. MICROBIOLOGY: Please see below. ASSESSMENT: 73-year-old male with past medical history of CHF, coronary artery disease, [place], diabetes mellitus and asthma omitted for CHF with subsequent acute kidney injury and now having GI bleed. PLAN: 1. GI bleed. Status post repeat EGD and colonoscopy, no additional findings, no source of bleeding identified, restarted diet, will trend H&H and transfuse as needed, H&H has remained somewhat stable over the past 24 hours, if remains stable by tomorrow morning, we'll consider discharge, continue Protonix and Carafate. 2. Acute on chronic systolic heart failure. TTE reviewed, fluid restriction 1200 mL per day, monitor I's and O's, weigh daily, renal function at baseline, continue Lasix 40 mg oral daily. 3. Acute kidney injury on chronic kidney disease. renal ultrasound showed moderate left hydronephrosis, status post left ureteral stent placement, renal function back to baseline, nephrology signed off. 4. Diabetes mellitus. Levemir 10 units at bedtime, sliding scale insulin with fingersticks before every meal and at bedtime 5. Coronary artery disease. Status post [place] 4-5 years ago, 3-4 stents placed at that time, currently stable. Continue optimal medical management (aspirin and statin), holding Coreg and Plavix for now. 6. Asthma Continue home meds. 7. BPH. Continue home Proscar, oxybutynin, and Vesicare DVT prophylaxis: SCDs GI prophylaxis: Protonix and Carafate VS, I&O, 24H, Fishbone Vital Signs/I&O Vital Signs Date Time Temp Pulse Resp B/P (MAP) Pulse Ox O2 Delivery O2 Flow Rate FiO2 02/17/19 16:00 98.1 89 18 121/64 (83) 97 Room Air 02/16/19 10:31 2.0 I&O- Last 24 Hours up to 6 AM 02/17/19 06:00 Intake Total 490 ml Output Total 2575 ml Balance -2085 ml Laboratory Data 24H LABS Laboratory Tests 2 02/16/19 19:52: Bedside Glucose (Misc Panel) 179H 02/17/19 05:09: Nucleated Red Blood Cells % (auto) 0.0, Anion Gap 6L, Glomerular Filtration Rate 53.5, Calcium Level 7.4L, Phosphorus Level 3.1, Magnesium Level 2.1 02/17/19 12:08: Bedside Glucose (Misc Panel) 184H CBC/BMP Laboratory Tests 02/16/19 21:47 02/17/19 05:09 Microbiology Microbiology 02/15/19 Stool Occult Blood ([facility]) - Final, Complete 02/11/19 Stool Occult Blood ([facility]) - Final, Complete 02/08/19 Urine Culture - Final, Complete 02/08/19 Blood Culture - Final, Complete NO GROWTH AFTER 5 DAYS LUNA WALTERS MD Feb 17, 2019 18:11
[2019-02-17] MEDS ORDERED: MIRALAX *UNIT DOSE* 17GM PACKET PO ONE (19:45)
[2019-02-17] MEDS: LEVEMIR (INSULIN DETEMIR) 1 UNITS/0.01ML SC SCH (20:10)
[2019-02-17] MEDS: diphenhydrAMINE 25 MG CAP PO SCH (20:11)
[2019-02-17] MEDS: PRAVASTATIN 20 MG TAB PO SCH (20:11)
[2019-02-17] MEDS: BACLOFEN 5MG PER 1/2 TABLET PO SCH (20:11)
[2019-02-18 04:00] VITALS: BP 125/67
[2019-02-18] MEDS: ACETAMINOPHEN 650MG ER TAB (TYLENOL ARTHRITIS) PO PRN (05:09)
[2019-02-18] MEDS: SLF 3 ML SYR IV SCH ×2 (05:10→14:00)
[2019-02-18 05:33] LABS: HEMOGLOBIN 8.9 g/dl (13.5-17.5); MEAN CORPUSCULAR HGB CONC 30.7 g/dl (32.0-36.5); MEAN CORPUSCULAR VOLUME 94.5 fl (80.0-96.0); PLATELET COUNT, AUTOMATED 297 10^3/uL (150-450); RED BLOOD COUNT 3.07 10^6/uL (4.30-6.10); WHITE BLOOD COUNT 9.3 10^3/uL (4.0-10.0)
[2019-02-18 05:57] LABS: CALCIUM LEVEL 7.7 MG/DL (8.8-10.2); CREATININE FOR GFR 1.26 MG/DL (0.70-1.30); GLOMERULAR FILTRATION RATE 59.4 (>42); POTASSIUM SERUM 3.6 MEQ/L (3.5-5.1)
[2019-02-18] MEDS: ADVAIR HFA 115/21MCG INHALER INH SCH (07:20)
[2019-02-18] MEDS: SUCRALFATE SUSP 1GM/10ML UD PO SCH ×2 (07:47→12:43)
[2019-02-18 08:00] VITALS: BP 116/71
[2019-02-18] MEDS: ALBUTEROL SULFATE 2.5 MG/0.5 ML INH NEB SOLN NEB SCH ×3 (08:00→15:15)
[2019-02-18] MEDS ORDERED: POTASSIUM CHLORIDE 10 MEQ SR TABLET PO ONE (09:00)
[2019-02-18] MEDS: HumaLOG INSULIN (NovoLOG) PER UNIT SC SCH ×2 (09:08→12:44)
[2019-02-18] MEDS: oxyBUTYnin *DITROPAN XL* 5 MG TABCR PO SCH (09:08)
[2019-02-18] MEDS: MIRALAX *UNIT DOSE* 17GM PACKET PO PRN (09:08)
[2019-02-18] MEDS: ASPIRIN 81 MG ENTERIC TAB PO SCH (09:09)
[2019-02-18] MEDS: GABAPENTIN 300 MG CAP PO SCH (09:09)
[2019-02-18] MEDS: SOLIFENACIN 5 MG TAB PO SCH (09:09)
[2019-02-18] MEDS: FUROSEMIDE 40 MG TAB PO SCH (09:09)
[2019-02-18] MEDS: OMEPRAZOLE 20 MG CAP PO SCH (09:09)
[2019-02-18] MEDS: ALLOPURINOL 100 MG TAB PO SCH (09:09)
[2019-02-18] MEDS: FINASTERIDE 5 MG TAB PO SCH (09:10)
[2019-02-18 12:00] VITALS: BP 111/56
[2019-02-18 12:23] LABS: HEMATOCRIT 29.2 % (42.0-52.0); HEMOGLOBIN 9.2 g/dl (13.5-17.5); MEAN CORPUSCULAR HEMOGLOBIN 29.7 pg (27.0-33.0); MEAN CORPUSCULAR HGB CONC 31.5 g/dl (32.0-36.5); MEAN CORPUSCULAR VOLUME 94.2 fl (80.0-96.0); PLATELET COUNT, AUTOMATED 286 10^3/uL (150-450); WHITE BLOOD COUNT 7.9 10^3/uL (4.0-10.0)
[2019-02-18] MEDS ORDERED: OMEP-218 PO (12:36)
[2019-02-18] MEDS ORDERED: SUCR10SS PO (12:36)
--- NOTE | 2019-02-18 12:43 | DS.PDOC ---
Discharge Summary General Date of Admission Feb 04, 2019 at 11:53 Date of Discharge 02/18/2019 Attending Physician: LUNA WALTERS MD Discharge Summary PROCEDURES PERFORMED DURING STAY: None. ADMITTING DIAGNOSES: 1. CHF exacerbation. DISCHARGE DIAGNOSES: 1. CHF exacerbation, obstructive uropathy, acute on chronic kidney disease, GI bleed. COMPLICATIONS/CHIEF COMPLAINT: Acute Chf,Arthritis,Asthma,Ckd,Diabetes Mellitus. HISTORY OF PRESENT ILLNESS: 73-year-old male, past medical history of coronary artery disease status post MS, CHF, diabetes mellitus, and chronic kidney dis ease, was admitted for acute on chronic CHF exacerbation. He was also found to have acute kidney injury, had an obstructive stone in the left ureter, underwent stent placement by urology with subsequent improvement in renal function, was able to tolerate diuresis without any difficulty. After adequate diuresis and renal function returning to normal patient developed GI bleed, likely due to dual anti-platelet therapy, Plavix was held, GI consulted, patient underwent EGD which showed a nonbleeding ulcer in the duodenum. Patient continued to bleed for the next 2-3 days, had repeat EGD and colonoscopy without any new findings. Patient received 6 units of packed red blood cells total throughout this hospitalization, H&H has remained stable for at least 24 hours, no longer having bloody bowel movements, clinically and hemodynamically stable for discharge with outpatient follow-up. Patient is tolerating diet, currently without any complaints. Patient is being discharged on PPI and Carafate. Patient with urinary retention requiring Louie placement, will follow-up outpatient with urology for further management and removal of Louie catheter. HOSPITAL COURSE: As above. DISCHARGE MEDICATIONS: Please see below. ALLERGIES: Please see below. PHYSICAL EXAMINATION: VITAL SIGNS: Please see below. GENERAL: No distress, morbidly obese HEENT: Normocephalic, atraumatic, moist mucous membranes NECK: Supple CARDIOVASCULAR EXAMINATION: Distant, S1, S2 RESPIRATORY EXAMINATION: Clear, diminished, no wheezing ABDOMINAL EXAMINATION: Soft, no tenderness to palpation, nondistended, positive bowel sounds EXTREMITIES: Bilateral lower extremity pitting edema, improving SKIN: No rash NEUROLOGICAL EXAMINATION: Alert and oriented 3, no focal deficits PSYCHIATRIC EXAMINATION: Calm and cooperative LABORATORY DATA: Please see below. PROGNOSIS: Guarded ACTIVITY: As tolerated. 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 DISCHARGE INSTRUCTIONS: 1. As above. DISCHARGE CONDITION: Stable. TIME SPENT ON DISCHARGE: Greater than 38 minutes. Vital Signs/I&Os Vital Signs Date Time Temp Pulse Resp B/P (MAP) Pulse Ox O2 Delivery O2 Flow Rate FiO2 02/18/19 12:00 97.8 85 20 111/56 (74) 97 Room Air 02/16/19 10:31 2.0 I&O- Last 24 Hours up to 6 AM 02/18/19 06:00 Intake Total 1000 ml Output Total 2675 ml Balance -1675 ml Laboratory Data Labs 24H Laboratory Tests 2 02/18/19 05:06: Nucleated Red Blood Cells % (auto) 0.0, Anion Gap 6L, Glomerular Filtration Rate 59.4, Calcium Level 7.7L 02/18/19 11:53: Nucleated Red Blood Cells % (auto) 0.0 02/18/19 12:14: Bedside Glucose (Misc Panel) 184H CBC/BMP Laboratory Tests 02/18/19 05:06 02/18/19 11:53 FSBS Laboratory Tests Test 02/18/19 12:14 Range/Units Bedside Glucose (Misc Panel) 184 83-110 MG/DL Microbiology Microbiology 02/15/19 Stool Occult Blood ([facility]OOKE) - Final, Complete 02/11/19 Stool Occult Blood ([facility]) - Final, Complete 02/08/19 Urine Culture - Final, Complete 02/08/19 Blood Culture - Final, Complete NO GROWTH AFTER 5 DAYS Discharge Medications Scheduled Allopurinol (Allopurinol) 100 Mg Tab, 100 MG PO BID, (Reported) Aspirin (Aspir 81) 81 Mg Tablet.dr, 81 MG PO DAILY, (Reported) Baclofen (Baclofen) 10 Mg Tab, 5 MG PO QHS, (Reported) Carvedilol (Carvedilol) 12.5 Mg Tablet, 12.5 MG PO BID, (Reported) Finasteride (Finasteride) 5 Mg Tab, 5 MG PO DAILY, (Reported) Furosemide (Furosemide) 40 Mg Tablet, 40 MG PO DAILY, (Reported) Gabapentin (Gabapentin) 600 Mg Tablet, 600 MG PO TID, (Reported) Insulin Glargine,Hum.rec.anlog (Basaglar Kwikpen U-100) 100 Unit/1 Ml Insuln.pen, 14 UNIT SC QHS, (Reported) Metformin HCl (Metformin HCl) 500 Mg Tablet, 500 MG PO BID, (Reported) Omeprazole (Omeprazole) 20 Mg Capsule.dr, 40 MG PO BID Oxybutynin Chloride (Oxybutynin Chloride ER) 5 Mg Tab.er.24, 5 MG PO DAILY, (Reported) Pravastatin Sodium (Pravastatin Sodium) 40 Mg Tab, 40 MG PO QPM, (Reported) Salmeterol/Fluticasone (Advair 250-50 Diskus) 14 Puff/Inhaler Aerp, 1 PUFF INH BID, (Reported) Sitagliptin Phosphate (Januvia) 100 Mg Tab, 100 MG PO DAILY, (Reported) Solifenacin Succinate (Vesicare) 5 Mg Tab, 5 MG PO DAILY, (Reported) Sucralfate (Sucralfate) 1 Gm/10 Ml Oral.susp, 1 GM PO ACHS Scheduled PRN Acetaminophen (Acetaminophen ER) 650 Mg Tablet.er, 650 MG PO Q8H PRN for PAIN, (Reported) Albuterol Sulf (Albuterol Sulfate) 2.5 Mg/3 Ml Vial.neb, 2.5 MG INH Q4H PRN for SHORTNESS OF BREATH, (Reported) Albuterol Sulfate (Ventolin Hfa) 18 Gm Hfa.aer.ad, 2 PUFF INH Q4H PRN for SOB/WHEEZING, (Reported) Fluticasone Propionate (Flonase Allergy Relief) 50 Mcg/Act Spr, 2 SPRAYS NARES DAILY PRN for CONGESTION, (Reported) Propylene Glycol/Peg 400 (Systane Gel Eye Drops) 10 Ml Drops.gel, 1 DROP OS QID PRN for DRY EYES, (Reported) Allergies Coded Allergies: No Known Allergies (Unverified , 12/30/18) LUNA WALTERS MD Feb 18, 2019 12:43
== END 2019-02-18 15:48 | disposition home or self-care (01) | DRG 987 ==
LOC: M ED 05:59 → M ED INP 11:53 → M PCU 15:36
PROVIDERS: ADMIT Internal Medicine; ATTEND Internal Medicine
PROC: BT0 Imaging, Urinary System, Plain Radiography (ICD-10-PCS; 2019-02-06)
PROC: 0T778DZ Dilation of Left Ureter with Intraluminal Device, Via Natural or Artificial Opening Endoscopic (ICD-10-PCS; principal; 2019-02-06 13:00)
PROC: 30233N1 Transfusion of Nonautologous Red Blood Cells into Peripheral Vein, Percutaneous Approach (ICD-10-PCS; 2019-02-12)
PROC: 0DJ08ZZ Inspection of Upper Intestinal Tract, Via Natural or Artificial Opening Endoscopic (ICD-10-PCS; 2019-02-13)
PROC: 0DJ08ZZ Inspection of Upper Intestinal Tract, Via Natural or Artificial Opening Endoscopic (ICD-10-PCS; 2019-02-16)
PROC: 0DBH8ZX Excision of Cecum, Via Natural or Artificial Opening Endoscopic, Diagnostic (ICD-10-PCS; 2019-02-16)
PROC: 0W3P8ZZ Control Bleeding in Gastrointestinal Tract, Via Natural or Artificial Opening Endoscopic (ICD-10-PCS; 2019-02-16)
DX: I13.0 Hypertensive heart and chronic kidney disease with heart failure and stage 1 through stage 4 chronic kidney disease, or unspecified chronic kidney disease (principal); I50.43 Acute on chronic combined systolic (congestive) and diastolic (congestive) heart failure; N17.9 Acute kidney failure, unspecified; N13.1 Hydronephrosis with ureteral stricture, not elsewhere classified; I47.2 Ventricular tachycardia; D62 Acute posthemorrhagic anemia; K92.2 Gastrointestinal hemorrhage, unspecified; D68.32 Hemorrhagic disorder due to extrinsic circulating anticoagulants; K26.9 Duodenal ulcer, unspecified as acute or chronic, without hemorrhage or perforation; Z68.37 Body mass index [BMI] 37.0-37.9, adult; I25.10 Atherosclerotic heart disease of native coronary artery without angina pectoris; I95.9 Hypotension, unspecified; I25.2 Old myocardial infarction; K64.0 First degree hemorrhoids; K44.9 Diaphragmatic hernia without obstruction or gangrene; E11.22 Type 2 diabetes mellitus with diabetic chronic kidney disease; M10.9 Gout, unspecified; E66.9 Obesity, unspecified; E11.40 Type 2 diabetes mellitus with diabetic neuropathy, unspecified; D69.6 Thrombocytopenia, unspecified; N18.3 Chronic kidney disease, stage 3 (moderate); K57.30 Diverticulosis of large intestine without perforation or abscess without bleeding; D12.0 Benign neoplasm of cecum; J45.909 Unspecified asthma, uncomplicated; M19.90 Unspecified osteoarthritis, unspecified site; N40.0 Benign prostatic hyperplasia without lower urinary tract symptoms; Z87.442 Personal history of urinary calculi; Z79.4 Long term (current) use of insulin; Z79.82 Long term (current) use of aspirin; Z79.899 Other long term (current) drug therapy

== ENCOUNTER → 2019-02-23 | Outpatient (REF) | payer MEDICARE ==
[~2019-02-23] MED LIST changes: +ACE65ERTAB PO; +ALBU83IN INH; +ASPI81CH33 PO; +ASPI81TA85 PO; +CARV12.5 PO; +DOXY-350 PO; +METF-839 PO; +MUCI60TA7 PO; +OMEP-218 PO; +OXYB5TAB2 PO; +SUCR10SS PO; +SYST0.4D2 OU; +TRIPOIN5 TOP
[2019-02-23 14:09] LABS: BILIRUBIN, URINE MANUAL NEGATIVE (NEGATIVE); BLOOD URINE MANUAL POSITIVE (NEGATIVE); COLOR, URINE MANUAL YELLOW (YELLOW); GLUCOSE, URINE (UA) MANUAL NEGATIVE (NEGATIVE); KETONE, URINE MANUAL NEGATIVE (NEGATIVE); LEUKOCYTE ESTERASE, URINE MAN POSITIVE (NEGATIVE); NITRITE, URINE MANUAL NEGATIVE (NEGATIVE); PH,URINE MAN 6.5 UNITS (5.0 - 7.0); PROTEIN, URINE MANUAL 1+ mg/dL (NEGATIVE); UROBILINOGEN, URINE MANUAL NORMAL (NORMAL)
[2019-02-23 14:10] LABS: APPEARANCE, URINE MANUAL HAZY (CLEAR)
[2019-02-23 14:15] LABS: BACTERIA, URINE SMALL AMOUNT; HYALINE CAST, URINE NONE SEEN /lpf (0-1); RBC, URINE 20-30 /hpf (0-3); SQUAMOUS EPITHELIAL CELL URINE SMALL AMOUNT /hpf (SMALL AMT)
[2019-02-23 14:16] LABS: AMORPHOUS SEDIMENT, URINE SMALL AMOUNT (NEGATIVE)
== END ==
LOC: M SMT 12:46
PROVIDERS: ATTEND Nurse Practitioner Women's Health
DX: N13.2 Hydronephrosis with renal and ureteral calculous obstruction (principal)

== ENCOUNTER 2019-02-24 00:17 | Inpatient (IN) | payer MEDICARE ==
[2019-02-24] VITALS (12 sets, daily range): BP systolic 100–124; BP diastolic 54–72
[~2019-02-24] VITALS: Ht 172.7 cm; Wt 113.5 kg
[~2019-02-24 00:17] MED LIST changes: -ASPI81CH33 PO; -DOXY-350 PO; -MUCI60TA7 PO; -TRIPOIN5 TOP
[2019-02-24] MEDS ORDERED: NS 1,000 ML IV SCH (02:20)
--- NOTE | 2019-02-24 03:02 | HPEPDOC ---
General Date of Admission Feb 24, 2019 at 01:30 Date of Service: Feb 24, 2019 Chief Complaint The patient is a 73-year-old male admitted with a reason for visit of Anemia. Source: Patient, Family Exam Limitations: No limitations Timing/Duration: 24 hours, Day(s) Severity: Moderate Associated Symptoms: Cough, Fever, Syncope History of Present Illness Patient 73 years old male with past medical history of coronary artery disease status post DC, stents 3, CHF with low ejection fraction, on life vest, diabetes mellitus, asthma and arthritis presents to the hospital with lightheadedness, syncope, cough with sputum production. Patient stated that yesterday around 6 PM he developed lightheadedness and then he syncopized. His family member didn't see any seizure-like activities, urinary or stool incontinence. Also patient has been having increased cough with yellowish sputum production. He had fever 100.3 for past 2 days. Family brought the patient to the [facility]. In the hospital patient was found to have tachycardia, his hemoglobin level was 7.6, negative troponin. CT head was done and it was negative for acute bleed. CT abdomen and pelvis showed left renal double ureteral stent w/o hydronephrosis and minor diverticulitis of the colon Of note patient recently has been hospitalized in [facility] for acute on chronic CHF exacerbation. After adequate diuresis and renal function returning to normal patient developed GI bleed, likely due to dual anti-platelet therapy. Patient underwent EGD which showed a nonbleeding ulcer in the duodenum. Patient continued to bleed for the next 2-3 days, had repeat EGD and colonoscopy without any new findings. Patient was discharged on PPI. Home Medications Scheduled Allopurinol (Allopurinol) 100 Mg Tab, 100 MG PO BID, (Reported) Aspirin (Aspir 81) 81 Mg Tablet.dr, 81 MG PO DAILY, (Reported) Baclofen (Baclofen) 10 Mg Tab, 5 MG PO QHS, (Reported) Carvedilol (Carvedilol) 12.5 Mg Tablet, 12.5 MG PO BID, (Reported) Finasteride (Finasteride) 5 Mg Tab, 5 MG PO DAILY, (Reported) Furosemide (Furosemide) 40 Mg Tablet, 40 MG PO DAILY, (Reported) Gabapentin (Gabapentin) 600 Mg Tablet, 600 MG PO TID, (Reported) Insulin Glargine,Hum.rec.anlog (Basaglar Kwikpen U-100) 100 Unit/1 Ml Insuln.pen, 14 UNIT SC QHS, (Reported) Metformin HCl (Metformin HCl) 500 Mg Tablet, 500 MG PO BID, (Reported) Omeprazole (Omeprazole) 20 Mg Capsule.dr, 40 MG PO BID, (Reported) Oxybutynin Chloride (Oxybutynin Chloride ER) 5 Mg Tab.er.24, 5 MG PO DAILY, (Reported) Pravastatin Sodium (Pravastatin Sodium) 40 Mg Tab, 40 MG PO QHS, (Reported) Salmeterol/Fluticasone (Advair 250-50 Diskus) 14 Puff/Inhaler Aerp, 1 PUFF INH BID, (Reported) Sitagliptin Phosphate (Januvia) 100 Mg Tab, 100 MG PO DAILY, (Reported) Solifenacin Succinate (Vesicare) 5 Mg Tab, 5 MG PO DAILY, (Reported) Sucralfate (Sucralfate) 1 Gm/10 Ml Oral.susp, 1 GM PO ACHS, (Reported) Scheduled PRN Acetaminophen (Acetaminophen ER) 650 Mg Tablet.er, 650 MG PO Q8H PRN for PAIN, (Reported) Albuterol Sulf (Albuterol Sulfate) 2.5 Mg/3 Ml Vial.neb, 2.5 MG INH Q4H PRN for SHORTNESS OF BREATH, (Reported) Albuterol Sulfate (Ventolin Hfa) 18 Gm Hfa.aer.ad, 2 PUFF INH Q4H PRN for SOB/WHEEZING, (Reported) Fluticasone Propionate (Flonase Allergy Relief) 50 Mcg/Act Spr, 2 SPRAYS NARES DAILY PRN for CONGESTION, (Reported) Guaifenesin/Pseudoephedrne HCl (Mucinex D ER 600-60 mg Tablet) 1 Each Tab.er.12h, 1 TAB PO BID PRN for COUGH, (Reported) Propylene Glycol/Peg 400 (Systane Gel Eye Drops) 10 Ml Drops.gel, 1 DROP OU QID PRN for DRY EYES, (Reported) Allergies Coded Allergies: No Known Allergies (Unverified , 12/30/18) Past Medical History Medical History 1. 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 2. Chronic kidney disease stage III. 3. Recurrent nephrolithiasis. 4. Gout. 5. Asthma. 6. Benign prostatic hypertrophy (BPH). 7. Insulin-dependent diabetes mellitus. 8. Dyslipidemia. 9. Obesity. 10. Coronary artery disease. 11. Hypertension. 12. Neuropathy. 13. Arthritis. 14. History of myocardial infarction. Surgical History 1. Coronary stents. 2. Appendectomy. 3. Multiple urologic procedures including left ureteral stent placement on February 06. 4. Previous laser lithotripsy. 5. Circumcision. Family History Father had DC Social History * Smoker: Denies Alcohol: Denies Drugs: denies A-FIB/CHADSVASC A-FIB History Current/History of A-Fib/PAF?: No Current PO Anticoag Therapy: No Review of Systems Constitutional: Reports: Chills, Fever, Fatigue Eyes: Denies: Pain ENT: Denies: Head Aches, Dysphagia Skin: Denies: Rash, Lesions Pulmonary: Reports: Cough Cardiovascular: Denies: Chest Pain Gastrointestinal: Denies: Nausea, Vomiting Genitourinary: Reports: Dysuria, Frequency; Denies: Hematuria Hematologic: Denies: Bruising, Bleeding Excessively Endocrine: Denies: Polydipsia, Polyphagia Musculoskeletal: Denies: Neck Pain, Back Pain Neurological: Denies: Change in speech, Confusion Psych: Reports: Mood Normal Physical Examination General Exam: Positive: Alert, Cooperative Eye Exam: Positive: PERRLA, Conjunctiva & lids normal ENT Exam: Positive: Atraumatic Neck Exam: Positive: Supple, JVD Chest Exam: Positive: Diminished Heart Exam: Positive: Tachycardic Telemetry: Positive: Sinus Abdomen Exam: Positive: Normal bowel sounds Extremity Exam: Negative: Clubbing, Cyanosis Skin Exam: Positive: Nl turgor and temperature Neuro Exam: Positive: Strength at 5/5 X4 ext, Cranial Nerves 3-12 NL Psych Exam: Positive: Mental status NL Vital Signs HR 110 Assessment/Plan Patient 73 years old male with past medical history of coronary artery disease status post DC, stents 3, CHF with low ejection fraction, on life vest, diabetes mellitus, asthma and arthritis presents to the hospital with lightheadedness, syncope, cough with sputum production. Patient stated that yesterday around 6 PM he developed lightheadedness and then he syncopized. His family member didn't see any seizure-like activities, urinary or stool incontinence. Also patient has been having increased cough with yellowish sputum production. He had fever 100.3 for past 2 days. Family brought the patient to the [facility]. In the hospital patient was found to have tachycardia, his hemoglobin level was 7.6, negative troponin. CT head was done and it was negative for acute bleed. CT abdomen and pelvis showed left renal double ureteral stent w/o hydronephrosis and minor diverticulitis of the colon Problems (1) Anemia Status: Acute Problem Text: most likely 2/2 GI loss Patient was recently found to have blood in the stool in previous hospitalization most likely secondary to dual antiplatelet therapy We will transfuse 2 units of blood H&H every 6 hours Will repeat stool for blood (2) HCAP (healthcare-associated pneumonia) Status: Acute Problem Text: Patient complains of cough with yellowish sputum production Patient does not have leukocytosis, LA wnl, I doubt that patient has a sepsis, he looks nontoxic Azithromycin IV, ceftriaxone IV for now Blood culture, sputum culture, pro-calcitonin If patient not improve in 24-48 hrs we'll escalate antibiotic therapy and will do chest CT scan (3) Diabetes mellitus Status: Chronic Problem Text: Insulin sliding scale Detemir twice a day Diabetes diet (4) Systolic CHF Status: Chronic Problem Text: Continue home cardioprotective medications (5) CAD (coronary artery disease) Status: Chronic Problem Text: Continue home cardioprotective medications Plan / VTE VTE Prophylaxis Ordered?: No VTE Exclusion Pharmacological: Active Bleeding DARIA BYRNES DO Feb 24, 2019 03:02
[2019-02-24 03:03] LABS: HEMATOCRIT 24.1 % (42.0-52.0); HEMOGLOBIN 7.3 g/dl (13.5-17.5); MEAN CORPUSCULAR HEMOGLOBIN 28.9 pg (27.0-33.0); MEAN CORPUSCULAR HGB CONC 30.3 g/dl (32.0-36.5); MEAN CORPUSCULAR VOLUME 95.3 fl (80.0-96.0); PLATELET COUNT, AUTOMATED 228 10^3/uL (150-450); RED BLOOD COUNT 2.53 10^6/uL (4.30-6.10); WHITE BLOOD COUNT 4.2 10^3/uL (4.0-10.0)
[2019-02-24] MEDS ORDERED: DEXTROSE 50% 50 ML SYRINGE IV PRN (03:15)
[2019-02-24] MEDS ORDERED: GLUCAGON FOR INJ 1 MG VIAL (J1610) SC PRN (03:15)
[2019-02-24] MEDS ORDERED: GLUCOSE 4 GM CHEW TABLET PO PRN (03:15)
[2019-02-24] MEDS ORDERED: OMEP-218 PO (03:16)
[2019-02-24] MEDS ORDERED: MUCI60TA7 PO (03:16)
[2019-02-24] MEDS ORDERED: SUCR10SS PO (03:16)
[2019-02-24 03:22] LABS: CALCIUM LEVEL 8.1 MG/DL (8.8-10.2); CREATININE FOR GFR 1.32 MG/DL (0.70-1.30); GLOMERULAR FILTRATION RATE 56.3 (>42); POTASSIUM SERUM 3.6 MEQ/L (3.5-5.1)
[2019-02-24] MEDS: guaiFENesin SYRUP 200 MG/10 ML UDC PO PRN ×2 (05:13→09:45)
[2019-02-24] MEDS: cefTRIAXone SOD 2 GM in D5W MINI-BAG PLUS 50 ML IV SCH (06:32)
[2019-02-24] MEDS ORDERED: FLUTICASONE PROP 0.05% NASAL SPRAY 16 GM (FLONASE) NARES PRN (06:45)
[2019-02-24] MEDS ORDERED: ALBUTEROL 90 MCG/ACT 8GM HFA INHALER INH PRN (06:45)
[2019-02-24] MEDS: HumaLOG INSULIN (NovoLOG) PER UNIT SC SCH ×3 (07:30→17:23)
[2019-02-24] MEDS: AZITHROMYCIN INJ 500 MG, VIAL MATE ADAPTER 1 EACH in D5W 250 ML IV SCH (07:57)
[2019-02-24] MEDS: ASPIRIN 81 MG ENTERIC TAB PO SCH (08:52)
[2019-02-24] MEDS: ALLOPURINOL 100 MG TAB PO SCH ×2 (08:52→21:41)
[2019-02-24] MEDS: SUCRALFATE SUSP 1GM/10ML UD PO SCH ×4 (08:53→21:42)
[2019-02-24] MEDS: CARVedilol 12.5 MG TAB PO SCH ×2 (08:53→21:42)
[2019-02-24] MEDS: FUROSEMIDE 40 MG TAB PO SCH (08:53)
[2019-02-24] MEDS: OMEPRAZOLE 20 MG CAP PO SCH ×2 (08:53→21:41)
[2019-02-24] MEDS: GABAPENTIN 300 MG CAP PO SCH ×3 (08:53→21:41)
[2019-02-24] MEDS: SOLIFENACIN 5 MG TAB PO SCH (08:53)
[2019-02-24] MEDS: FINASTERIDE 5 MG TAB PO SCH (08:54)
[2019-02-24] MEDS: LEVEMIR (INSULIN DETEMIR) 1 UNITS/0.01ML SC SCH ×2 (08:54→21:42)
[2019-02-24] MEDS: oxyBUTYnin *DITROPAN XL* 5 MG TABCR PO SCH (08:54)
[2019-02-24] MEDS: ADVAIR HFA 115/21MCG INHALER INH SCH ×3 (09:00→19:53)
--- NOTE | 2019-02-24 11:21 | REP ---
Clinical: Pneumonia. Technique: PA and lateral. Comparison: 02/04/2019. Findings: Mediastinum and cardiac silhouette are grossly normal. Lung weeks are relatively clear and without discrete focal consolidation, effusion, or pneumothorax. Skeletal structures intact. Impression: No acute cardiopulmonary process or focal consolidation. Electronically Signed by Isak Urbina MD 02/24/2019 11:13 A
[2019-02-24 12:44] LABS: HEMATOCRIT 29.1 % (42.0-52.0); HEMOGLOBIN 8.9 g/dl (13.5-17.5)
[2019-02-24] MEDS: ACETAMINOPHEN 650MG ER TAB (TYLENOL ARTHRITIS) PO PRN (13:39)
[2019-02-24] MEDS: ALBUTEROL SULFATE 2.5 MG/0.5 ML INH NEB SOLN NEB PRN ×2 (15:01→19:53)
[2019-02-24] MEDS: PRAVASTATIN 20 MG TAB PO SCH (21:41)
[2019-02-24] MEDS: BACLOFEN 5MG PER 1/2 TABLET PO SCH (21:41)
[2019-02-25] MEDS: guaiFENesin SYRUP 200 MG/10 ML UDC PO PRN (00:39)
[2019-02-25] MEDS: ALBUTEROL SULFATE 2.5 MG/0.5 ML INH NEB SOLN NEB PRN ×3 (00:55→07:27)
[2019-02-25] MEDS ORDERED: LIDOCAINE 2% 5ML JELLY UROJET TOP PRN (01:45)
[2019-02-25 02:05] LABS: HEMATOCRIT 26.5 % (42.0-52.0); HEMOGLOBIN 8.1 g/dl (13.5-17.5); MEAN CORPUSCULAR HEMOGLOBIN 29.2 pg (27.0-33.0); MEAN CORPUSCULAR HGB CONC 30.6 g/dl (32.0-36.5); MEAN CORPUSCULAR VOLUME 95.7 fl (80.0-96.0); PLATELET COUNT, AUTOMATED 203 10^3/uL (150-450); RED BLOOD COUNT 2.77 10^6/uL (4.30-6.10); WHITE BLOOD COUNT 4.4 10^3/uL (4.0-10.0)
[2019-02-25 02:39] LABS: PERCENT SATURATION 12.9 % (19.7-50.0)
[2019-02-25] MEDS: cefTRIAXone SOD 2 GM in D5W MINI-BAG PLUS 50 ML IV SCH (05:20)
[2019-02-25 06:00] VITALS: BP 96/58
[2019-02-25 06:28] LABS: HEMATOCRIT 26.8 % (42.0-52.0); MEAN CORPUSCULAR HEMOGLOBIN 28.2 pg (27.0-33.0); MEAN CORPUSCULAR HGB CONC 29.9 g/dl (32.0-36.5); MEAN CORPUSCULAR VOLUME 94.4 fl (80.0-96.0); PLATELET COUNT, AUTOMATED 222 10^3/uL (150-450); RED BLOOD COUNT 2.84 10^6/uL (4.30-6.10); WHITE BLOOD COUNT 4.4 10^3/uL (4.0-10.0)
[2019-02-25 06:37] LABS: CALCIUM LEVEL 8.1 MG/DL (8.8-10.2); CREATININE FOR GFR 1.25 MG/DL (0.70-1.30); GLOMERULAR FILTRATION RATE 59.9 (>42); POTASSIUM SERUM 3.6 MEQ/L (3.5-5.1)
[2019-02-25] MEDS: AZITHROMYCIN INJ 500 MG, VIAL MATE ADAPTER 1 EACH in D5W 250 ML IV SCH (06:44)
[2019-02-25] MEDS: ACETAMINOPHEN 650MG ER TAB (TYLENOL ARTHRITIS) PO PRN (06:46)
[2019-02-25 06:57] VITALS: BP 102/54
[2019-02-25] MEDS: ADVAIR HFA 115/21MCG INHALER INH SCH ×2 (07:26→19:32)
[2019-02-25] MEDS: SOLIFENACIN 5 MG TAB PO SCH (08:21)
[2019-02-25] MEDS: FINASTERIDE 5 MG TAB PO SCH (08:21)
[2019-02-25] MEDS: OMEPRAZOLE 20 MG CAP PO SCH ×2 (08:21→20:45)
[2019-02-25] MEDS: SUCRALFATE SUSP 1GM/10ML UD PO SCH ×4 (08:21→20:45)
[2019-02-25] MEDS: oxyBUTYnin *DITROPAN XL* 5 MG TABCR PO SCH (08:22)
[2019-02-25] MEDS: LEVEMIR (INSULIN DETEMIR) 1 UNITS/0.01ML SC SCH ×2 (08:22→20:46)
[2019-02-25] MEDS: ALLOPURINOL 100 MG TAB PO SCH ×2 (08:22→20:46)
[2019-02-25] MEDS: ASPIRIN 81 MG ENTERIC TAB PO SCH (08:22)
[2019-02-25] MEDS: GABAPENTIN 300 MG CAP PO SCH ×3 (08:22→20:46)
[2019-02-25] MEDS: HumaLOG INSULIN (NovoLOG) PER UNIT SC SCH ×3 (08:22→17:12)
[2019-02-25] MEDS: FUROSEMIDE 40 MG TAB PO SCH (08:23)
[2019-02-25] MEDS: CARVedilol 12.5 MG TAB PO SCH ×2 (08:23→20:49)
[2019-02-25] MEDS: NEOSPORIN TOP OINT 15GM TOP SCH ×2 (09:00→20:45)
[2019-02-25 14:00] VITALS: BP_SYST 110; BP_SYST 130; BP_DIAS 55; BP_DIAS 75
[2019-02-25] MEDS ORDERED: IRON SUCROSE 100MG 5ML VIAL (J1756 PER 1MG) IV ONE (14:00)
--- NOTE | 2019-02-25 14:36 | IPNPDOC ---
Text Note Date of Service The patient was seen on 02/25/19. NOTE SUBJECTIVE: Mr. Guillen is up in a chair. He has multiple family members at bedside. We have had a prolonged discussion of his multiple medical conditions inclusive of coronary artery disease with systolic and diastolic congestive heart failure, chronic kidney disease, hypertension and diabetes among others. Currently the patient is admitted with anemia. He has received transfusion with 2 units of packed red blood cells. He also received transfusion with recent prior hospital stay as well. The patient appears to have chronic GI blood loss of unclear source. OBJECTIVE: Physical exam: Please see vital signs below HEENT: Neck is supple with no adenopathy or thyromegaly, oral mucosa is moist. Cardiovascular exam: Currently regular rate and rhythm, patient has LifeVest. Respiratory: Bilateral coarse breath sounds, occasional productive cough. Abdomen: Patient has morbid central obesity, but is otherwise benign to exam, has Louie catheter in place due to nephrolithiasis. Extremities: Pedal pulses are palpable, patient does not currently exhibit peripheral edema. ASSESSMENT/PLAN: 1. Anemia. There are multiple possible etiologies for this anemia: Anemia of chronic disease such as chronic kidney disease, chronic GI blood loss such as AVM or diverticular bleed, iron deficiency, decreased bone marrow production. The patient had been on dual antiplatelet therapy; Plavix has been stopped , but he remains on aspirin. Patient has been evaluated by endoscopy on at least 2 occasions and, aside from a nonbleeding gastric ulcer no discrete source has been identified. We will continue to monitor his hemoglobin level preferably without excessive blood draws which do not give an accurate picture. He will be transfused as needed with packed red blood cells. We will also be giving him some IV iron as well. Additional evaluation could include capsule endoscopy and/or bone marrow biopsy/aspiration; these would be outpatient studies. 2. Chronic systolic congestive heart failure The patient has an ejection fraction of 20%. He has a LifeVest. He is closely managed with medication and diuretics. At times his blood pressure does not allow dosing of his medications. We keep a close watch on his fluid status. He is on fluid restriction. We will need to balance his volume from transfusion and iron infusion; these could contribute to or cause fluid overload. If we are not careful. 3. Chronic kidney disease stage III. Creatinine is currently stable; last creatinine is 1.25. This varies with diuretic use. 4. Activity intolerance. The patient's activity tolerance is limited due to his underlying congestive heart failure and heart disease. Will likely need assessment for home O2. 5. [id number] diabetes mellitus. The patient is off of his metformin; he currently has good glycemic control with being managed with basal bolus insulin and sliding scale. VS,Fishbone, I+O VS, Fishbone, I+O Laboratory Tests 02/25/19 01:58 02/25/19 05:30 Vital Signs Date Time Temp Pulse Resp B/P (MAP) Pulse Ox O2 Delivery O2 Flow Rate FiO2 02/25/19 08:23 85 96/86 02/25/19 06:00 99.1 18 96 Room Air 02/24/19 01:30 2.0 I&O- Last 24 Hours up to 6 AM 02/25/19 06:00 Intake Total 2510 ml Output Total 1975 ml Balance 535 ml DENNIS MURCIA MD Feb 25, 2019 14:36
[2019-02-25] MEDS: ALBUTEROL SULFATE 2.5 MG/0.5 ML INH NEB SOLN NEB SCH ×2 (15:25→19:32)
[2019-02-25] MEDS ORDERED: IRON SUCROSE 100 MG in NS 100 ML OVER 1 HR IV ONE (16:00)
[2019-02-25] MEDS: MIRALAX *UNIT DOSE* 17GM PACKET PO PRN (20:45)
[2019-02-25] MEDS: BACLOFEN 5MG PER 1/2 TABLET PO SCH (20:46)
[2019-02-25] MEDS: PRAVASTATIN 20 MG TAB PO SCH (20:46)
[2019-02-25 22:00] VITALS: BP 106/68
[2019-02-26] VITALS (9 sets, daily range): BP systolic 87–107; BP diastolic 46–64
[2019-02-26] MEDS: ALBUTEROL SULFATE 2.5 MG/0.5 ML INH NEB SOLN NEB SCH ×7 (00:22→23:38)
[2019-02-26] MEDS: cefTRIAXone SOD 2 GM in D5W MINI-BAG PLUS 50 ML IV SCH (05:38)
[2019-02-26] MEDS: AZITHROMYCIN INJ 500 MG, VIAL MATE ADAPTER 1 EACH in D5W 250 ML IV SCH (06:28)
[2019-02-26] MEDS: ADVAIR HFA 115/21MCG INHALER INH SCH ×2 (07:20→20:43)
[2019-02-26] MEDS: ALLOPURINOL 100 MG TAB PO SCH ×2 (07:33→21:43)
[2019-02-26] MEDS: FUROSEMIDE 40 MG TAB PO SCH (07:33)
[2019-02-26] MEDS: SOLIFENACIN 5 MG TAB PO SCH (07:33)
[2019-02-26] MEDS: oxyBUTYnin *DITROPAN XL* 5 MG TABCR PO SCH (07:33)
[2019-02-26] MEDS: GABAPENTIN 300 MG CAP PO SCH ×3 (07:33→21:43)
[2019-02-26] MEDS: ASPIRIN 81 MG ENTERIC TAB PO SCH (07:33)
[2019-02-26] MEDS: SUCRALFATE SUSP 1GM/10ML UD PO SCH ×4 (07:33→21:42)
[2019-02-26] MEDS: FINASTERIDE 5 MG TAB PO SCH (07:34)
[2019-02-26] MEDS: CARVedilol 12.5 MG TAB PO SCH ×2 (07:34→21:00)
[2019-02-26] MEDS: LEVEMIR (INSULIN DETEMIR) 1 UNITS/0.01ML SC SCH ×2 (07:34→21:44)
[2019-02-26] MEDS: OMEPRAZOLE 20 MG CAP PO SCH ×2 (07:34→21:42)
[2019-02-26] MEDS: NEOSPORIN TOP OINT 15GM TOP SCH ×2 (07:35→21:00)
[2019-02-26] MEDS: HumaLOG INSULIN (NovoLOG) PER UNIT SC SCH ×3 (07:35→17:37)
[2019-02-26 07:37] LABS: HEMATOCRIT 25.1 % (42.0-52.0); HEMOGLOBIN 7.5 g/dl (13.5-17.5); MEAN CORPUSCULAR HEMOGLOBIN 28.4 pg (27.0-33.0); MEAN CORPUSCULAR HGB CONC 29.9 g/dl (32.0-36.5); MEAN CORPUSCULAR VOLUME 95.1 fl (80.0-96.0); PLATELET COUNT, AUTOMATED 194 10^3/uL (150-450); RED BLOOD COUNT 2.64 10^6/uL (4.30-6.10); WHITE BLOOD COUNT 4.4 10^3/uL (4.0-10.0)
[2019-02-26 07:45] LABS: BLOOD UREA NITROGEN 14 MG/DL (7-18); CALCIUM LEVEL 7.8 MG/DL (8.8-10.2); CARBON DIOXIDE LEVEL 29 MEQ/L (21-32); CHLORIDE LEVEL 104 MEQ/L (98-107); CREATININE FOR GFR 1.09 MG/DL (0.70-1.30); GLOMERULAR FILTRATION RATE > 60.0 (>42); GLUCOSE, FASTING 152 MG/DL (70-100); POTASSIUM SERUM 3.7 MEQ/L (3.5-5.1); SODIUM LEVEL 138 MEQ/L (136-145)
[2019-02-26] MEDS ORDERED: FUROSEMIDE 40 MG/4 ML VIAL (J1940) IV ONE (09:00)
--- NOTE | 2019-02-26 16:59 | IPNPDOC ---
Text Note Date of Service The patient was seen on 02/26/19. NOTE SUBJECTIVE: Mr. Guillen is supine in bed. He has just completed blood transfusion today. He received additional 2 units PRBCs due to a hemoglobin down to 7.6. We have had a prolonged discussion of his multiple medical conditions inclusive of coronary artery disease with systolic and diastolic congestive heart failure, chronic kidney disease, hypertension and diabetes among others. Currently the patient is admitted with anemia. He has received transfusion with 2 units of packed red blood cells. He also received transfusion with recent prior hospital stay as well. The patient appears to have chronic GI blood loss of unclear source. OBJECTIVE: Physical exam: Please see vital signs below HEENT: Neck is supple with no adenopathy or thyromegaly, oral mucosa is moist. Cardiovascular exam: Currently regular rate and rhythm, patient has LifeVest. Respiratory: Clear breath sounds today, occasional productive cough. Abdomen: Patient has morbid central obesity, but is otherwise benign to exam, has Louie catheter in place due to nephrolithiasis, has good urine output Extremities: Pedal pulses are palpable, patient does not currently exhibit peripheral edema. ASSESSMENT/PLAN: 1. Anemia. There are multiple possible etiologies for this anemia: Anemia of chronic disease such as chronic kidney disease, chronic GI blood loss such as AVM or diverticular bleed, iron deficiency, decreased bone marrow production. The patient had been on dual antiplatelet therapy; Plavix has been stopped , but he remains on aspirin. Patient has been evaluated by endoscopy on at least 2 recent occasions and, aside from a nonbleeding gastric ulcer no discrete source has been identified. We will continue to monitor his hemoglobin level preferably without excessive blood draws which do not give an accurate picture. He will be transfused as needed with packed red blood cells. We will also be giving him some IV iron as well. Additional evaluation could include capsule endoscopy and/or bone marrow biopsy/aspiration; these would be outpatient studies. 2. Chronic systolic congestive heart failure The patient has an ejection fraction of 20%. He has a LifeVest. He is closely managed with medication and diuretics. At times his blood pressure does not allow dosing of his medications. We keep a close watch on his fluid status. He is on fluid restriction. We will need to balance his volume from transfusion and iron infusion; these could contribute to or cause fluid overload if we are not careful. 3. Chronic kidney disease stage III. Creatinine is currently stable; last creatinine is 1.25. This varies with diuretic use. 4. Activity intolerance. The patient's activity tolerance is limited due to his underlying congestive heart failure and heart disease. Will likely need assessment for home O2. 5. [id number]-hvvfzluhj diabetes mellitus. The patient is off of his metformin; he currently has good glycemic control with being managed with basal bolus insulin and sliding scale. VS,Fishbone, I+O VS, Fishbone, I+O Laboratory Tests 02/26/19 07:13 Vital Signs Date Time Temp Pulse Resp B/P (MAP) Pulse Ox O2 Delivery O2 Flow Rate FiO2 02/26/19 15:45 98.3 77 18 96/55 95 Room Air 02/24/19 01:30 2.0 I&O- Last 24 Hours up to 6 AM 02/26/19 06:00 Intake Total 986 ml Output Total 1300 ml Balance -314 ml DENNIS UMRCIA MD Feb 26, 2019 16:59
[2019-02-26] MEDS: ACETAMINOPHEN 650MG ER TAB (TYLENOL ARTHRITIS) PO PRN (18:35)
[2019-02-26] MEDS: PRAVASTATIN 20 MG TAB PO SCH (21:43)
[2019-02-26] MEDS: BACLOFEN 5MG PER 1/2 TABLET PO SCH (21:46)
[2019-02-27] MEDS: ALBUTEROL SULFATE 2.5 MG/0.5 ML INH NEB SOLN NEB SCH ×2 (04:05→07:19)
[2019-02-27] MEDS: cefTRIAXone SOD 2 GM in D5W MINI-BAG PLUS 50 ML IV SCH (05:13)
[2019-02-27 05:47] LABS: HEMATOCRIT 31.2 % (42.0-52.0); HEMOGLOBIN 9.4 g/dl (13.5-17.5); MEAN CORPUSCULAR HEMOGLOBIN 28.7 pg (27.0-33.0); MEAN CORPUSCULAR HGB CONC 30.1 g/dl (32.0-36.5); MEAN CORPUSCULAR VOLUME 95.1 fl (80.0-96.0); PLATELET COUNT, AUTOMATED 205 10^3/uL (150-450); RED BLOOD COUNT 3.28 10^6/uL (4.30-6.10); WHITE BLOOD COUNT 5.5 10^3/uL (4.0-10.0)
[2019-02-27 06:00] VITALS: BP 15/67
[2019-02-27] MEDS: AZITHROMYCIN INJ 500 MG, VIAL MATE ADAPTER 1 EACH in D5W 250 ML IV SCH (06:06)
[2019-02-27 06:15] LABS: ALBUMIN 2.4 GM/DL (3.2-5.2); BILIRUBIN,TOTAL 0.3 MG/DL (0.2-1.0); CALCIUM LEVEL 7.9 MG/DL (8.8-10.2); CREATININE FOR GFR 1.26 MG/DL (0.70-1.30); GLOMERULAR FILTRATION RATE 59.4 (>42); POTASSIUM SERUM 4.2 MEQ/L (3.5-5.1); TOTAL PROTEIN 5.8 GM/DL (6.4-8.2)
[2019-02-27] MEDS: MIRALAX *UNIT DOSE* 17GM PACKET PO PRN (06:54)
[2019-02-27] MEDS: ADVAIR HFA 115/21MCG INHALER INH SCH (07:19)
[2019-02-27] MEDS: oxyBUTYnin *DITROPAN XL* 5 MG TABCR PO SCH (08:30)
[2019-02-27] MEDS: FINASTERIDE 5 MG TAB PO SCH (08:30)
[2019-02-27] MEDS: ASPIRIN 81 MG ENTERIC TAB PO SCH (08:30)
[2019-02-27] MEDS: SOLIFENACIN 5 MG TAB PO SCH (08:30)
[2019-02-27] MEDS: ALLOPURINOL 100 MG TAB PO SCH (08:30)
[2019-02-27] MEDS: HumaLOG INSULIN (NovoLOG) PER UNIT SC SCH (08:31)
[2019-02-27] MEDS: OMEPRAZOLE 20 MG CAP PO SCH (08:31)
[2019-02-27] MEDS: GABAPENTIN 300 MG CAP PO SCH (08:31)
[2019-02-27] MEDS: LEVEMIR (INSULIN DETEMIR) 1 UNITS/0.01ML SC SCH (08:31)
[2019-02-27] MEDS: SUCRALFATE SUSP 1GM/10ML UD PO SCH (08:31)
[2019-02-27 08:32] VITALS: BP 94/61
[2019-02-27] MEDS: CARVedilol 12.5 MG TAB PO SCH (08:32)
[2019-02-27] MEDS: NEOSPORIN TOP OINT 15GM TOP SCH (08:32)
[2019-02-27] MEDS: FUROSEMIDE 40 MG TAB PO SCH (08:33)
[2019-02-27] MEDS ORDERED: DOXY-350 PO (09:34)
[2019-02-27] MEDS ORDERED: TRIPOIN5 TOP (09:39)
--- NOTE | 2019-02-27 13:49 | DS.PDOC ---
Discharge Summary General Date of Admission Feb 24, 2019 at 01:30 Date of Discharge 02/27/19 Discharge Summary PROCEDURES PERFORMED DURING STAY: None ADMITTING DIAGNOSES: Anemia HCAP (healthcare-associated pneumonia) Diabetes mellitus Systolic CHF CAD (coronary artery disease) DISCHARGE DIAGNOSES: Anemia HCAP (healthcare-associated pneumonia) Diabetes mellitus Systolic CHF CAD (coronary artery disease) COMPLICATIONS/CHIEF COMPLAINT: Anemia. HISTORY OF PRESENT ILLNESS: Patient 73 years old male with past medical history of coronary artery disease status post TN, stents 3, CHF with low ejection f raction, on life vest, diabetes mellitus, asthma and arthritis presents to the hospital with lightheadedness, syncope, cough with sputum production. Patient stated that yesterday around 6 PM he developed lightheadedness and then he syncopized. His family member didn't see any seizure-like activities, urinary or stool incontinence. Also patient has been having increased cough with yellowish sputum production. He had fever 100.3 for past 2 days. Family brought the patient to the [facility]. In the hospital patient was found to have tachycardia, his hemoglobin level was 7.6, negative troponin. CT head was done and it was negative for acute bleed. CT abdomen and pelvis showed left renal double ureteral stent w/o hydronephrosis and minor diverticulitis of the colon Of note patient recently has been hospitalized in [facility] for acute on chronic CHF exacerbation. After adequate diuresis and renal function returning to normal patient developed GI bleed, likely due to dual anti-platelet therapy. Patient underwent EGD which showed a nonbleeding ulcer in the duodenum. Patient continued to bleed for the next 2-3 days, had repeat EGD and colonoscopy without any new findings. Patient was discharged on PPI. HOSPITAL COURSE: 1. Anemia. There are multiple possible etiologies for this anemia: Anemia of chronic disease such as chronic kidney disease, chronic GI blood loss such as AVM or diverticular bleed, iron deficiency, decreased bone marrow production. The patient had been on dual antiplatelet therapy; Plavix has been stopped , but he remains on aspirin. Patient has been evaluated by endoscopy on at least 2 recent occasions and, aside from a nonbleeding gastric ulcer no discrete source has been identified. He received IV iron as well. Additional evaluation could include capsule endoscopy and/or bone marrow biopsy/aspiration; these would be outpatient studies. 2. Chronic systolic congestive heart failure The patient has an ejection fraction of 20%. He has a LifeVest. He was closely managed with medication and diuretics. 3. Chronic kidney disease stage III. Creatinine is currently stable; last creatinine is 1.25. This varies with diuretic use. 4. Activity intolerance. The patient's activity tolerance is limited due to his underlying congestive heart failure and heart disease. Will likely need assessment for home O2. 5. Cqd-hveraib-rlgmzecva diabetes mellitus. The patient is off of his metformin; he currently has good glycemic control with being managed with basal bolus insulin and sliding scale. HCAP (healthcare-associated pneumonia) Patient complained of cough with yellowish sputum production Patient did not not have leukocytosis, LA wnl Received treatment with Azithromycin IV, ceftriaxone IV DISCHARGE MEDICATIONS: Please see below. ALLERGIES: Please see below. PHYSICAL EXAMINATION ON DISCHARGE: VITAL SIGNS: Please see below. Please see vital signs below HEENT: Neck is supple with no adenopathy or thyromegaly, oral mucosa is moist. Cardiovascular exam: Currently regular rate and rhythm, patient has LifeVest. Respiratory: Clear breath sounds today Abdomen: Patient has morbid central obesity, but is otherwise benign to exam, has Louie catheter in place due to nephrolithiasis, has good urine output Extremities: Pedal pulses are palpable, patient does not currently exhibit peripheral edema. LABORATORY DATA: Please see below. IMAGING: Clinical: Pneumonia. Technique: PA and lateral. Comparison: 02/04/2019. Findings: Mediastinum and cardiac silhouette are grossly normal. Lung weeks are relatively clear and without discrete focal consolidation, effusion, or pneumothorax. Skeletal structures intact. Impression: No acute cardiopulmonary process or focal consolidation. PROGNOSIS: Favorable ACTIVITY:As tolerated DIET: Cardiac DISCHARGE PLAN: Home DISPOSITION: 01 Home, Self-Care. DISCHARGE INSTRUCTIONS See PCP and client program manager in the outpatient settings DISCHARGE CONDITION: Stable TIME SPENT ON DISCHARGE: Greater than 25 minutes. Vital Signs/I&Os Vital Signs Date Time Temp Pulse Resp B/P (MAP) Pulse Ox O2 Delivery O2 Flow Rate FiO2 02/27/19 08:32 83 94/61 02/27/19 06:00 97.0 20 96 02/26/19 15:45 Room Air 02/24/19 01:30 2.0 I&O- Last 24 Hours up to 6 AM 02/27/19 06:00 Intake Total 1850 ml Output Total 3700 ml Balance -1850 ml Laboratory Data Labs 24H Laboratory Tests 2 02/26/19 16:34: Bedside Glucose (Misc Panel) 185H 02/26/19 20:30: Bedside Glucose (Misc Panel) 159H 02/27/19 05:17: Nucleated Red Blood Cells % (auto) 0.0, Anion Gap 4L, Glomerular Filtration Rate 59.4, Calcium Level 7.9L, Total Bilirubin 0.3, Aspartate Amino Transf (AST/SGOT) 41H, Alanine Aminotransferase (ALT/SGPT) 44, Alkaline Phosphatase 140H, Total Protein 5.8L, Albumin 2.4L, Albumin/Globulin Ratio 0.71L CBC/BMP Laboratory Tests 02/27/19 05:17 FSBS Laboratory Tests Test 02/26/19 16:34 02/26/19 20:30 Range/Units Bedside Glucose (Misc Panel) 185 159 83-110 MG/DL Microbiology Microbiology 02/24/19 Stool Occult Blood (BROOKE) - Final, Complete 02/24/19 Gram Stain - Final, Resulted 02/24/19 Sputum Culture, Resulted Pending 02/24/19 Blood Culture - Preliminary, Resulted No Growth after 72 hours. All specime... Discharge Medications Scheduled Allopurinol (Allopurinol) 100 Mg Tab, 100 MG PO BID, (Reported) Baclofen (Baclofen) 10 Mg Tab, 5 MG PO QHS, (Reported) Carvedilol (Carvedilol) 12.5 Mg Tablet, 12.5 MG PO BID, (Reported) Doxycycline Monohydrate (Doxycycline) 100 Mg Capsule, 100 MG PO BID Finasteride (Finasteride) 5 Mg Tab, 5 MG PO DAILY, (Reported) Furosemide (Furosemide) 40 Mg Tablet, 40 MG PO DAILY, (Reported) Gabapentin (Gabapentin) 600 Mg Tablet, 600 MG PO TID, (Reported) Insulin Glargine,Hum.rec.anlog (Basaglar Kwikpen U-100) 100 Unit/1 Ml Insuln.pen, 14 UNIT SC QHS, (Reported) Metformin HCl (Metformin HCl) 500 Mg Tablet, 500 MG PO BID, (Reported) Neomycin/Bacitracin/Polymyxinb (Triple Antibiotic Ointment) 28 Gm Oint...g., 1 DOSE TOP BID Omeprazole (Omeprazole) 20 Mg Capsule.dr, 40 MG PO BID, (Reported) Oxybutynin Chloride (Oxybutynin Chloride ER) 5 Mg Tab.er.24, 5 MG PO DAILY, (Reported) Pravastatin Sodium (Pravastatin Sodium) 40 Mg Tab, 40 MG PO QHS, (Reported) Salmeterol/Fluticasone (Advair 250-50 Diskus) 14 Puff/Inhaler Aerp, 1 PUFF INH BID, (Reported) Sitagliptin Phosphate (Januvia) 100 Mg Tab, 100 MG PO DAILY, (Reported) Solifenacin Succinate (Vesicare) 5 Mg Tab, 5 MG PO DAILY, (Reported) Sucralfate (Sucralfate) 1 Gm/10 Ml Oral.susp, 1 GM PO ACHS, (Reported) Scheduled PRN Acetaminophen (Acetaminophen ER) 650 Mg Tablet.er, 650 MG PO Q8H PRN for PAIN, (Reported) Albuterol Sulf (Albuterol Sulfate) 2.5 Mg/3 Ml Vial.neb, 2.5 MG INH Q4H PRN for SHORTNESS OF BREATH, (Reported) Albuterol Sulfate (Ventolin Hfa) 18 Gm Hfa.aer.ad, 2 PUFF INH Q4H PRN for SOB/WHEEZING, (Reported) Fluticasone Propionate (Flonase Allergy Relief) 50 Mcg/Act Spr, 2 SPRAYS NARES DAILY PRN for CONGESTION, (Reported) Guaifenesin/Pseudoephedrne HCl (Mucinex D ER 600-60 mg Tablet) 1 Each Tab.er.12h, 1 TAB PO BID PRN for COUGH, (Reported) Propylene Glycol/Peg 400 (Systane Gel Eye Drops) 10 Ml Drops.gel, 1 DROP OU QID PRN for DRY EYES, (Reported) Allergies Coded Allergies: No Known Allergies (Unverified , 12/30/18) DARIA BYRNES DO Feb 27, 2019 13:49
[2019-02-27] MEDS ORDERED: ASPI81CH33 PO (13:50)
[2019-03-01 00:07] LABS: BODY FLUID CULTURE Not Indicated (.); ORGANISM ID Not indicated. (.); SPECIMEN SOURCE Urine (.); URINE STREP PNEUMONIAE ANTIGEN Negative (Negative)
== END 2019-02-27 10:50 | disposition home or self-care (01) | DRG 811 ==
LOC: M MSPAV 01:30 → OBSVTOIN 01:30
PROVIDERS: ADMIT Internal Medicine; ATTEND Internal Medicine
PROC: 30233N1 Transfusion of Nonautologous Red Blood Cells into Peripheral Vein, Percutaneous Approach (ICD-10-PCS; principal; 2019-02-24)
DX: D64.9 Anemia, unspecified (principal); J18.9 Pneumonia, unspecified organism; N13.2 Hydronephrosis with renal and ureteral calculous obstruction; I50.42 Chronic combined systolic (congestive) and diastolic (congestive) heart failure; I13.0 Hypertensive heart and chronic kidney disease with heart failure and stage 1 through stage 4 chronic kidney disease, or unspecified chronic kidney disease; K92.2 Gastrointestinal hemorrhage, unspecified; I25.10 Atherosclerotic heart disease of native coronary artery without angina pectoris; I25.2 Old myocardial infarction; D63.1 Anemia in chronic kidney disease; E11.22 Type 2 diabetes mellitus with diabetic chronic kidney disease; E78.5 Hyperlipidemia, unspecified; J45.909 Unspecified asthma, uncomplicated; R55 Syncope and collapse; M19.90 Unspecified osteoarthritis, unspecified site; N18.3 Chronic kidney disease, stage 3 (moderate); M10.9 Gout, unspecified; N40.0 Benign prostatic hyperplasia without lower urinary tract symptoms; E11.40 Type 2 diabetes mellitus with diabetic neuropathy, unspecified; Z79.4 Long term (current) use of insulin; Z87.442 Personal history of urinary calculi; Z95.5 Presence of coronary angioplasty implant and graft; Z96.0 Presence of urogenital implants; Z79.82 Long term (current) use of aspirin; Z79.899 Other long term (current) drug therapy

== ENCOUNTER → 2019-03-02 | Outpatient (CLI) | payer MEDICARE, MEDICAID ==
[~2019-03-02] MED LIST changes: +ASPI81CH33 PO; +DOXY-350 PO; +MUCI60TA7 PO; +TRIPOIN5 TOP
[2019-03-02 11:03] LABS: HEMATOCRIT 30.5 % (42.0-52.0); HEMOGLOBIN 9.4 g/dl (13.5-17.5)
== END ==
LOC: M LAB 09:40
PROVIDERS: ATTEND Internal Medicine
DX: D04.9 Carcinoma in situ of skin, unspecified (principal)

== ENCOUNTER → 2019-03-02 | Outpatient (CLI) | payer MEDICARE, MEDICAID ==
[2019-03-02 11:03] LABS: BASO # 0.1 10^3/uL (0.0-0.2); BASO % 0.6 % (0.0-1.0); EOS # 0.3 10^3/uL (0.0-0.5); EOS % 3.8 % (0.0-3.0); HEMATOCRIT 31.6 % (42.0-52.0); HEMOGLOBIN 9.5 g/dl (13.5-17.5); LYMPH # 3.2 10^3/uL (1.5-5.0); LYMPH % 36.7 % (24.0-44.0); MEAN CORPUSCULAR HEMOGLOBIN 28.9 pg (27.0-33.0); MEAN CORPUSCULAR HGB CONC 30.1 g/dl (32.0-36.5); MONO # 0.5 10^3/uL (0.0-0.8); MONO % 5.6 % (0.0-5.0); NEUTROPHILS # 4.4 10^3/uL (1.5-8.5); NEUTROPHILS % 50.2 % (36.0-66.0); PLATELET COUNT, AUTOMATED 306 10^3/uL (150-450); RED BLOOD COUNT 3.29 10^6/uL (4.30-6.10); WHITE BLOOD COUNT 8.8 10^3/uL (4.0-10.0)
[2019-03-02 11:27] LABS: ALBUMIN 2.8 GM/DL (3.2-5.2); ALT/SGPT 33 U/L (12-78); BILIRUBIN,TOTAL 0.3 MG/DL (0.2-1.0); BLOOD UREA NITROGEN 19 MG/DL (7-18); CALCIUM LEVEL 8.2 MG/DL (8.8-10.2); CARBON DIOXIDE LEVEL 30 MEQ/L (21-32); CHLORIDE LEVEL 107 MEQ/L (98-107); CHOLESTEROL LEVEL 154 MG/DL (<200); CHOLESTEROL RISK RATIO 4.812 (<5); GLOMERULAR FILTRATION RATE > 60.0 (>42); GLUCOSE, FASTING 177 MG/DL (70-100); HDL CHOLESTEROL 32 MG/DL (>40); IRON (FE) 25 UG/DL (65-175); LDL CHOLESTEROL 78 MG/DL (<100); NON-HDL-C 122 MG/DL; PERCENT SATURATION 7.6 % (19.7-50.0); SODIUM LEVEL 141 MEQ/L (136-145); TOTAL IRON BINDING CAPACITY 331 UG/DL (250-450); TOTAL PROTEIN 6.4 GM/DL (6.4-8.2); TRIGLYCERIDES LEVEL 219 MG/DL (<150)
[2019-03-02 11:28] LABS: HEMOGLOBIN A1c 5.6 %
[2019-03-02 11:40] LABS: VITAMIN B12 LEVEL 144 PG/ML
[2019-03-02 11:41] LABS: FOLATE 8.6 NG/ML
== END ==
LOC: M LAB 09:37
PROVIDERS: ATTEND Nurse Practitioner Family
DX: I10 Essential (primary) hypertension (principal); I25.10 Atherosclerotic heart disease of native coronary artery without angina pectoris; D64.9 Anemia, unspecified; E11.21 Type 2 diabetes mellitus with diabetic nephropathy; R26.81 Unsteadiness on feet; D04.9 Carcinoma in situ of skin, unspecified

== ENCOUNTER 2019-03-13 14:43 | Inpatient (IN) | payer MEDICARE ==
[~2019-03-13] VITALS: Ht 172.7 cm; Wt 121.1 kg
[~2019-03-13 14:43] MED LIST changes: +CIPR250T3 PO; +GOOD81CH2 PO; +LIDO2SOL9 TOP; +NOVOINJ12 SC; +NYST10CR TOP; -OXYB5TAB2 PO; +OXYB5TAB3 PO; +TRIPOIN11 TOP; +[UNRECOGNIZED DRUG - CODE] PO
[2019-03-13] MEDS ORDERED: NS 1,000 ML IV ONE (15:45)
[2019-03-13] MEDS ORDERED: PANTOPRAZOLE 40MG INJ (PROTONIX) (C9113) IV ONE (16:00)
[2019-03-13 16:05] LABS: BASO % 0.5 % (0.0-1.0); EOS # 0.2 10^3/uL (0.0-0.5); EOS % 2.5 % (0.0-3.0); HEMOGLOBIN 7.4 g/dl (13.5-17.5); LYMPH # 1.9 10^3/uL (1.5-5.0); LYMPH % 25.5 % (24.0-44.0); MEAN CORPUSCULAR HEMOGLOBIN 28.5 pg (27.0-33.0); MEAN CORPUSCULAR HGB CONC 29.6 g/dl (32.0-36.5); MEAN CORPUSCULAR VOLUME 96.2 fl (80.0-96.0); MONO # 0.6 10^3/uL (0.0-0.8); MONO % 7.8 % (0.0-5.0); NEUTROPHILS # 4.7 10^3/uL (1.5-8.5); PLATELET COUNT, AUTOMATED 324 10^3/uL (150-450); WHITE BLOOD COUNT 7.5 10^3/uL (4.0-10.0)
[2019-03-13 16:21] LABS: INR 1.07; PROTHROMBIN TIME 13.7 SECONDS (11.8-14.0)
[2019-03-13 16:22] LABS: PARTIAL THROMBOPLASTIN TIME 31.8 SECONDS (25.0-38.4)
[2019-03-13 16:24] LABS: ALBUMIN 2.8 GM/DL (3.2-5.2); ALT/SGPT 18 U/L (12-78); BILIRUBIN,DIRECT 0.1 MG/DL (0.0-0.2); BILIRUBIN,TOTAL 0.3 MG/DL (0.2-1.0); BLOOD UREA NITROGEN 24 MG/DL (7-18); CALCIUM LEVEL 7.9 MG/DL (8.8-10.2); CARBON DIOXIDE LEVEL 28 MEQ/L (21-32); CHLORIDE LEVEL 107 MEQ/L (98-107); CK-MB VALUE MASS 1.1 NG/ML (<3.6); CPK CREATINE PHOSPHOKINASE 49 U/L (39-308); CREATININE FOR GFR 1.38 MG/DL (0.70-1.30); GLOMERULAR FILTRATION RATE 53.3 (>42); GLUCOSE, FASTING 149 MG/DL (70-100); LIPASE 186 U/L (73-393); MB/CK RELATIVE INDEX 2.24 (< OR =4); POTASSIUM SERUM 4.3 MEQ/L (3.5-5.1); SODIUM LEVEL 143 MEQ/L (136-145); TOTAL PROTEIN 6.1 GM/DL (6.4-8.2); TROPONIN I < 0.02 NG/ML (< 0.10)
[2019-03-13] MEDS: PANTOPRAZOLE SODIUM 40 MG in D5W 50 ML IV SCH ×2 (17:36→21:47)
[2019-03-13] MEDS: SUCRALFATE SUSP 1GM/10ML UD PO SCH ×2 (17:36→21:47)
[2019-03-13] MEDS ORDERED: ALBUTEROL 90 MCG/ACT 8GM HFA INHALER INH PRN (18:15)
[2019-03-13] MEDS ORDERED: FLUTICASONE PROP 0.05% NASAL SPRAY 16 GM (FLONASE) NARES PRN (18:15)
[2019-03-13] MEDS ORDERED: ACETAMINOPHEN 650MG ER TAB (TYLENOL ARTHRITIS) PO PRN (18:15)
[2019-03-13 19:15] VITALS: BP 112/73
[2019-03-13 20:00] VITALS: BP 138/68
[2019-03-13] MEDS: CARVedilol 12.5 MG TAB PO SCH (20:20)
[2019-03-13] MEDS: FUROSEMIDE 40 MG TAB PO SCH (20:20)
[2019-03-13 20:30] VITALS: BP 113/72
[2019-03-13] MEDS ORDERED: OMEPRAZOLE 20 MG CAP PO SCH (21:00)
[2019-03-13 21:30] VITALS: BP 120/76
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
[2019-03-13] MEDS: GABAPENTIN 300 MG CAP PO SCH (21:46)
[2019-03-13] MEDS: allopurinoL 100 MG TAB PO SCH (21:46)
[2019-03-13] MEDS: PRAVASTATIN 20 MG TAB PO SCH (21:46)
[2019-03-13] MEDS: BACLOFEN 5MG PER 1/2 TABLET PO SCH (21:47)
[2019-03-14] VITALS (24 sets, daily range): BP systolic 98–141; BP diastolic 51–75
--- NOTE | 2019-03-14 00:59 | ECGEPIP ---
[facility] - ED Test Date: 2019-03-13 Pat Name: SANTY QUINONES Department: Room: - Gender: Male [employer] Helper: : 1945 Requested By: Indy Aquino Order Number: [id number] Reading MD: Rigoberto Morin Measurements Intervals Welch Rate: 83 P: 42 MT: 190 QRS: -46 QRSD: 146 T: -32 QT: 405 QTc: 476 Interpretive Statements SINUS RHYTHM MARKED LEFT AXIS DEVIATION LEFT BUNDLE BRANCH BLOCK Delayed anterior R wave progression Prolonged QTc interval- new from traces done 02-07-19 Electronically Signed on 03-14-2019 0:59:23 EST by Rigoberto Morin
[2019-03-14] MEDS: PANTOPRAZOLE SODIUM 40 MG in D5W 50 ML IV SCH ×4 (02:25→18:53)
[2019-03-14] MEDS: CARVedilol 12.5 MG TAB PO SCH ×2 (08:09→20:10)
[2019-03-14] MEDS: SUCRALFATE SUSP 1GM/10ML UD PO SCH ×4 (08:26→20:30)
[2019-03-14] MEDS: SOLIFENACIN 5 MG TAB PO SCH (08:27)
[2019-03-14] MEDS: GABAPENTIN 300 MG CAP PO SCH ×3 (08:27→20:31)
[2019-03-14] MEDS: oxyBUTYnin *DITROPAN XL* 5 MG TABCR PO SCH (08:27)
[2019-03-14] MEDS: allopurinoL 100 MG TAB PO SCH ×2 (08:27→20:31)
[2019-03-14] MEDS: FINASTERIDE 5 MG TAB PO SCH (08:27)
[2019-03-14] MEDS: SITagliptin 50 MG TAB (JANUVIA) PO SCH (08:27)
[2019-03-14] MEDS ORDERED: ASPIRIN 81 MG CHEW TABLET PO SCH (09:00)
[2019-03-14] MEDS ORDERED: VoLumen 0.1% SUSPENSION 450ML BOTTLE As Ordered ONE (09:14)
[2019-03-14] MEDS ORDERED: ISOVUE-370 76% 100ML VIAL (Q9967) As Ordered ONE (09:57)
[2019-03-14] MEDS ORDERED: GLUCAGON FOR INJ 1 MG VIAL (J1610) As Ordered ONE (09:58)
[2019-03-14 11:16] LABS: HEMATOCRIT 28.4 % (42.0-52.0); HEMOGLOBIN 8.6 g/dl (13.5-17.5); MEAN CORPUSCULAR HEMOGLOBIN 29.2 pg (27.0-33.0); MEAN CORPUSCULAR HGB CONC 30.3 g/dl (32.0-36.5); MEAN CORPUSCULAR VOLUME 96.3 fl (80.0-96.0); PLATELET COUNT, AUTOMATED 308 10^3/uL (150-450); RED BLOOD COUNT 2.95 10^6/uL (4.30-6.10); WHITE BLOOD COUNT 5.3 10^3/uL (4.0-10.0)
[2019-03-14 11:37] LABS: BLOOD UREA NITROGEN 19 MG/DL (7-18); CALCIUM LEVEL 8.1 MG/DL (8.8-10.2); CARBON DIOXIDE LEVEL 28 MEQ/L (21-32); CHLORIDE LEVEL 106 MEQ/L (98-107); CREATININE FOR GFR 1.16 MG/DL (0.70-1.30); GLOMERULAR FILTRATION RATE > 60.0 (>42); GLUCOSE, FASTING 163 MG/DL (70-100); SODIUM LEVEL 138 MEQ/L (136-145)
--- NOTE | 2019-03-14 11:37 | REP ---
CT ENTEROGRAPHY: CT Enterography performed following appropriate oral contrast protocol with the oral administration of VoLumen. IV contrast administration is also performed, 100 mL of Isovue 370. Axial images are obtained with sagittal and coronal reconstruction images. Comparison made with prior noncontrast CT 02/08/2019. There is mild bibasilar fibroatelectatic change in the visualized lung bases. Liver appears unremarkable. A calcified granuloma is seen in the inferior spleen. The adrenals and pancreas are demonstrate no mass. There are a few subcentimeter intrarenal calculi on the right which are unchanged. There is no right hydronephrosis. Left kidney demonstrates mild hydronephrosis. There is a left ureteral stent coiled in the left renal pelvis proximally and in the urinary bladder distally. Lower pole calcifications of the left kidney appear unchanged. Louie catheter is seen in the urinary bladder. There is mild atherosclerotic calcification of the abdominal aorta without aneurysm. No adenopathy, free air or free fluid is seen. Previously noted thickening and inflammation of the duodenum appears to have resolved. There is sigmoid diverticulosis. No new bowel thickening or inflammation is seen. No pelvic mass is seen. There are degenerative changes of the spine. Small subcentimeter calculus is again visualized adjacent to the left ureteral stent in the proximal to mid left ureter. Very small amount of air is seen in the left renal pelvis. IMPRESSION: Intrarenal calcifications appear unchanged. Left ureteral stent and Louie catheter again noted. There is mild left hydronephrosis. Subcentimeter calculus is again seen along the left ureteral stent in the proximal to mid left ureter. Previously noted thickening and inflammation of the duodenum appears to have essentially resolved. There is sigmoid diverticulosis. No other definite bowel abnormality is seen. Electronically Signed by Duy Belcher MD 03/15/2019 04:06 P
[2019-03-14] MEDS: LEVALBUTEROL 1.25 MG/0.5 ML CONCENTRATE NEB INH SCH ×4 (12:27→23:13)
[2019-03-14] MEDS ORDERED: DEXTROSE 50% 50 ML SYRINGE IV PRN (14:15)
[2019-03-14] MEDS ORDERED: GLUCOSE 4 GM CHEW TABLET PO PRN (14:15)
[2019-03-14] MEDS ORDERED: GLUCAGON FOR INJ 1 MG VIAL (J1610) SC PRN (14:15)
--- NOTE | 2019-03-14 16:18 | IPNPDOC ---
Date Seen The patient was seen on 03/14/19. Progress Note Addendum to progress note: Acute blood loss anemia due to upper GI bleed. -unable to assess jejunum, ileum -no GI coverage -per Dr. Loepz, CT enterography and transfer to [facility], or higher level of care -[facility] : no call back yet from accepting MD -[facility]-refused transfer, unable to provide double push enteroscopy -[facility]-refused transfer, unable to provide double push enteroscopy -[facility]-refused transfer, no beds for 3 days. -continue Blood transfusion, and stop asa. -Per Dr. Tovar's RN, 3 stents placed 2014, plavix for ?renal stenosis. -Per Dr. Tovar, ok to stop ASA since pt is actively bleeding. -not on plavix since previous discharge 02/27/19. -monitor hgb and transfuse, until accepted to a tertiary center. VS, I&O, 24H, Fishbone Vital Signs/I&O Vital Signs Date Time Temp Pulse Resp B/P (MAP) Pulse Ox O2 Delivery O2 Flow Rate FiO2 03/14/19 15:54 97.7 80 18 107/61 95 Room Air 03/14/19 14:00 2.0 I&O- Last 24 Hours up to 6 AM 03/14/19 06:00 Intake Total 1018 ml Output Total 1400 ml Balance -382 ml Laboratory Data 24H LABS Laboratory Tests 2 03/13/19 19:42: Bedside Glucose (Misc Panel) 96 03/14/19 10:58: Nucleated Red Blood Cells % (auto) 0.0, Anion Gap 4L, Glomerular Filtration Rate > 60.0, Calcium Level 8.1L CBC/BMP Laboratory Tests 03/14/19 01:08 03/14/19 10:58 Microbiology Microbiology 03/14/19 Stool Occult Blood (BROOKE) - Final, Complete 03/13/19 Blood Culture - Preliminary, Resulted No growth after 24 hours . All specim... 03/13/19 Blood Culture - Preliminary, Resulted No growth after 24 hours . All specim... TATIANNA CASTELAN MD Mar 14, 2019 16:18
[2019-03-14] MEDS: HumaLOG INSULIN (NovoLOG) PER UNIT SC SCH ×2 (17:19→20:10)
[2019-03-14] MEDS ORDERED: HumaLOG INSULIN (NovoLOG) PER UNIT SC SCH ×2 (17:30→21:00)
--- NOTE | 2019-03-14 19:55 | ECHO ---
DATE OF PROCEDURE: 03/14/2019 Date of : 1945 Age: 74 REFERRING PROVIDER: Dr Judit Chaparro PATIENT LOCATION: Room 4206 REASON FOR THE STUDY: Aortic aneurysm. 2D MEASUREMENTS: IVS: 1.4 cm LV: 6.2 cm LVPW: 1.4 cm LA: 4.1 cm Aorta: 3.5 cm IVC: 2.3 cm DOPPLER MEASUREMENTS: Peak velocity across the aortic valve: 2.6 meters per second Peak velocity across the LVOT: 0.81 meters per second Mitral E: 1.2, Mitral A: 1.2 with a ratio of 1.0 2D COMMENTS: 1. Mildly enlarged left ventricle with mildly increased left ventricular wall thickness but a severely depressed global left ventricular systolic function. The estimated left ventricular systolic ejection fraction is 25-30%. 2. Mildly dilated left atrium. Normal right atrium and right ventricle. 3. The atrial septum appeared to be normal without evidence of defect or shunt. 4. Normal aortic root. 5. Trace to small pericardial effusion noted, no evidence of cardiac tamponade. 6. Moderately calcified aortic valve, leaflet excursion may be mildly decreased. Mildly calcified mitral annulus with normal anterior mitral valve leaflet motion. Normal tricuspid valve and pulmonic valve. The proximal pulmonary artery branches also appear to be normal. 7. The inferior vena cava was mildly enlarged, central venous pressure might be elevated. DOPPLER: It detects mild mitral regurgitation and trace tricuspid regurgitation. Abnormal relaxation pattern was noted across the mitral valve annulus, and this may be a feature of left ventricular diastolic dysfunction, grade 1. IMPRESSION: 1. Severe global left ventricular systolic dysfunction with a mildly enlarged left ventricle and diffuse hypokinesis. There are some features of left ventricular diastolic dysfunction. 2. Aortic valve sclerosis with mild aortic regurgitation. Could not rule out more severe aortic stenosis in view of the severely depressed global left ventricular systolic function. 3. Mitral annulus calcification with mildly enlarged left atrium and mild mitral regurgitation. 4. Trace tricuspid regurgitation. 5. Trace to small pericardial effusion noted, no evidence of cardiac tamponade. 6. There are features of elevated central venous pressure, the inferior vena cava was mildly enlarged. 7. This was compared with most recent echocardiogram on 02/05/2019 and at that time, left ventricular systolic function seems to be more severe with more severe global hypokinesis. Otherwise no remarkable changes. [facility]
[2019-03-14] MEDS: FUROSEMIDE 40 MG TAB PO SCH (20:11)
[2019-03-14] MEDS: PRAVASTATIN 20 MG TAB PO SCH (20:30)
[2019-03-14] MEDS: BACLOFEN 5MG PER 1/2 TABLET PO SCH (20:30)
[2019-03-15] MEDS: PANTOPRAZOLE SODIUM 40 MG in D5W 50 ML IV SCH ×6 (00:01→21:05)
[2019-03-15 00:44] VITALS: BP 123/71
[2019-03-15 02:00] VITALS: BP 122/78
[2019-03-15] MEDS: LEVALBUTEROL 1.25 MG/0.5 ML CONCENTRATE NEB INH SCH ×5 (03:45→20:46)
[2019-03-15 06:00] VITALS: BP 126/64
[2019-03-15 06:25] LABS: HEMATOCRIT 34.5 % (42.0-52.0); MEAN CORPUSCULAR HEMOGLOBIN 28.9 pg (27.0-33.0); MEAN CORPUSCULAR HGB CONC 31.6 g/dl (32.0-36.5); MEAN CORPUSCULAR VOLUME 91.5 fl (80.0-96.0); PLATELET COUNT, AUTOMATED 297 10^3/uL (150-450); RED BLOOD COUNT 3.77 10^6/uL (4.30-6.10); WHITE BLOOD COUNT 7.1 10^3/uL (4.0-10.0)
[2019-03-15 06:29] LABS: HEMOGLOBIN 10.9 g/dl (13.5-17.5)
[2019-03-15 06:48] LABS: CALCIUM LEVEL 8.6 MG/DL (8.8-10.2); CREATININE FOR GFR 1.25 MG/DL (0.70-1.30); GLOMERULAR FILTRATION RATE 59.8 (>42); POTASSIUM SERUM 4.3 MEQ/L (3.5-5.1)
[2019-03-15] MEDS: HumaLOG INSULIN (NovoLOG) PER UNIT SC SCH ×4 (07:30→21:00)
[2019-03-15] MEDS: SOLIFENACIN 5 MG TAB PO SCH (08:32)
[2019-03-15] MEDS: allopurinoL 100 MG TAB PO SCH ×2 (08:32→21:05)
[2019-03-15] MEDS: GABAPENTIN 300 MG CAP PO SCH ×3 (08:32→21:06)
[2019-03-15] MEDS: SUCRALFATE SUSP 1GM/10ML UD PO SCH ×4 (08:32→21:05)
[2019-03-15] MEDS: oxyBUTYnin *DITROPAN XL* 5 MG TABCR PO SCH (08:32)
[2019-03-15] MEDS: FINASTERIDE 5 MG TAB PO SCH (08:32)
[2019-03-15] MEDS: SITagliptin 50 MG TAB (JANUVIA) PO SCH (08:32)
[2019-03-15] MEDS: CARVedilol 12.5 MG TAB PO SCH ×2 (08:33→21:00)
--- NOTE | 2019-03-15 09:18 | IPN ---
DATE: 03/14/2019 The patient continues to have melanotic stools. Blood pressure is well maintained at 119 systolic. The patient is currently on Protonix drip and Carafate. Per Dr. Tovar, his district sales coordinator, due to ongoing gastrointestinal bleed, may discontinue the patient's aspirin. Plavix has been withheld since January secondary to occult GI bleed requiring 14 units of red blood cell transfusion. The patient denies any chest pain, pressure or tightness. He is slightly short of breath. No chest pressure or chest heaviness. He denies any palpitations, lightheadedness. He has not been out of bed. PHYSICAL EXAMINATION : VITAL SIGNS: Temperature 97.7, pulse 88, respiratory rate 20, blood pressure 119/66, 96% on room air. GENERAL: Slight pallor. No icterus or jaundice. Dry mucous membranes. No jugular venous distention (JVD) or thyromegaly. The patient has a defibrillator vest on. HEART: S1, S2. Regular rate and rhythm. ABDOMEN: Soft, nontender, nondistended. Positive bowel sounds. No rebound, guarding. No hepatosplenomegaly. LUNGS: Clear to auscultation. No wheezing, rales or rhonchi. EXTREMITIES: Trace edema in bilateral lower extremities. SKIN: Warm and dry. Well perfused. [place] in color. LABORATORY DATA: Hemoglobin is 7.5, repeat CBC is not available. IMAGING STUDIES: CT enterography is pending. ASSESSMENT AND PLAN: This is a 74-year-old male with a previous history of congestive heart failure (CHF), systolic and diastolic dysfunction with ejection fraction of 20% with defibrillator vest, coronary artery disease, stents, last was placed in January 2019, on chronic aspirin and Plavix, Plavix has been discontinued and currently on baby aspirin, which has been discontinued as recommended by Dr. Tovar. He continues to have melanotic stools with decrease in hemoglobin to 7 and requiring 3 units red blood cell transfusion. The patient was scoped by Dr. Tompkins, which showed duodenal ulcer, colonic diverticulosis, internal hemorrhoids, colonic polyps. The patient denies bright red blood, coffee ground emesis. Denies any lightheadedness or dizziness. Defibrillator could not be placed until GI source has been found to be make sure malignancy is not a factor in the patient's gastrointestinal bleed. However, per Dr. Tompkins, cannot do capsule endoscopy due to defibrillator vest. CURRENT ISSUES: 1. Recurrent gastrointestinal bleed/occult gastrointestinal bleed with acute blood loss anemia. The patient is being transfused 3 units red blood cell. He will need outpatient enteroscopy or repeat esophagogastroduodenoscopy (EGD). GI is not available at this time. Per Dr. Lopez, may check a CT enterography and transfer to [facility] if possible. 2. Cardiomyopathy with ejection fraction of 20%. Currently with defibrillator vest. History of systolic and diastolic dysfunction. Appears to be euvolemic at this time. 3. Chronic kidney disease stage III. Avoid nephrotoxins and renally dose all medications. The patient is has a history of obstructive uropathy with recurrent kidney stones. Unable to do full stone extraction until the patient has had a defibrillator placed. The patient did have nephrology consultation during the previous admission. We will monitor input and output, strict daily weights, as well as serial metabolic panel. We will consult neurology if needed. 4. History of ascending aortic aneurysm, 3.8 cm on echo 02/21/2009. No signs of dissection. We will obtain a stat echocardiogram. 5. Morbid obesity. Body Mass Index (BMI) of 41 with obstructive sleep apnea complicating his care. DISPOSITION: The patient requires further workup for occult gastrointestinal bleed at this time. [facility] has recommended capsule endoscopy and to call [facility], they hae refused transfer. Awaiting call from [facility] at this time.
--- NOTE | 2019-03-15 11:41 | IPN ---
DATE: 03/15/2019 Camron is seen in [address] [place] [address] while rounding for the hospitalist. Complicated case of a patient with recurrent gastrointestinal bleeding, history of duodenal ulcer with blood seen into ulcer crater in 01/2019. He has had a total of 17 units of packed red blood cells since January of this year. There is currently no flour mixer helper available with no coverage for today. Again, he had upper endoscopy in January that showed a cratered duodenal ulcer with stigmata of recent bleeding. The patient has been taken off aspirin and Plavix. He has an ejection fraction of 20%. He has a defibrillator vest that he is wearing. He is followed by [facility] for this. He is waiting to go down stairs for a nuclear bleeding scan. PHYSICAL EXAMINATION: Blood pressure 111/58, pulse 72, afebrile, 96% oxygen saturation on room air. GENERAL APPEARANCE: He looks surprisingly well considering everything that has been going on. Alert, conversant. No distress. LUNGS: Clear. HEART: Regular rhythm. 1/6 systolic ejection murmur. ABDOMEN: Soft, nontender. No masses. EXTREMITIES: Trace peripheral edema. LABORATORIES: White count 7.2, hemoglobin is up to 10.9 after transfusing 5 units yesterday. Platelets 297, INR was normal on admission. Sodium 141, potassium 4.2, BUN 11, creatinine 1.2, glucose 113. IMPRESSION: 1. Recurrent gastrointestinal bleeding, probably upper gastrointestinal bleeding. CT enterography was unremarkable. Suspect upper gastrointestinal bleeding source. Currently no flour mixer helper available. Transfer requested to [facility] is in process. Nuclear bleeding scan planned for today. 2. Dilated cardiomyopathy. Ejection fraction of 20%. He has a defibrillator vest on, which complicates plans for capsule endoscopy. Probably needs an ICD placed prior to having the capsule endoscopy done. 3. Chronic kidney disease stage III. Daily laboratories have been ordered. 4. Acute blood loss anemia requiring transfusions at 17 units since January 2017.
[2019-03-15 14:00] VITALS: BP 102/56
--- NOTE | 2019-03-15 14:05 | REP ---
Gastrointestinal blood loss of nuclear scintigraphy: Blood pool study. History: Occult GI bleeding. Negative EGD and colonoscopy. Technique: A 28.1 mCi technetium 99m RBC UltraTag is administered. Sequential 5 minutes images are acquired of the abdomen and pelvis for 16-day imaging interval. Scintigraphic findings: Normal blood pool uptake is seen. Normal hepatic and splenic uptake is observed. There is a photopenic area over the right lobe of the liver due to the patient's monitoring device. There is no evidence of localizable gastrointestinal bleeding. Cine views show no additional abnormality. Impression: Negative gastrointestinal bleed scan. Electronically Signed by Nathaniel Wilkins MD 03/15/2019 01:56 P
--- NOTE | 2019-03-15 16:37 | IPN ---
DATE: 03/15/2019 Camron' bleeding scan was normal, which unfortunately is usually the case. Family is wondering what the next steps are. I spent a long time discussing the case with his , who is actually an inpatient in the same room with him, as well as his daughter. It is most likely that Camron is bleeding from a duodenal ulcer; he had one in January and it was bleeding and it showed stigmata or recent bleeding at that time. He was on Plavix and aspirin then. When he was admitted this time he was still taking aspirin 81 mg daily, which has been discontinued. My plan is hopefully there is gastroenterology coverage tomorrow and if there is then consult GI to see him, making a decision whether benefits of upper endoscopy outweigh the cardiac risk.
[2019-03-15 18:00] VITALS: BP 104/60
[2019-03-15 20:22] LABS: HEMATOCRIT 35.2 % (42.0-52.0); HEMOGLOBIN 10.9 g/dl (13.5-17.5); MEAN CORPUSCULAR HEMOGLOBIN 29.1 pg (27.0-33.0); MEAN CORPUSCULAR VOLUME 94.1 fl (80.0-96.0); PLATELET COUNT, AUTOMATED 278 10^3/uL (150-450); RED BLOOD COUNT 3.74 10^6/uL (4.30-6.10); WHITE BLOOD COUNT 6.8 10^3/uL (4.0-10.0)
[2019-03-15] MEDS: FUROSEMIDE 40 MG TAB PO SCH (21:00)
[2019-03-15] MEDS: BACLOFEN 5MG PER 1/2 TABLET PO SCH (21:05)
[2019-03-15] MEDS: PRAVASTATIN 20 MG TAB PO SCH (21:06)
[2019-03-15 22:00] VITALS: BP 104/58
[2019-03-16 02:00] VITALS: BP 107/57
[2019-03-16] MEDS: PANTOPRAZOLE SODIUM 40 MG in D5W 50 ML IV SCH ×6 (02:50→18:27)
[2019-03-16] MEDS: LEVALBUTEROL 1.25 MG/0.5 ML CONCENTRATE NEB INH SCH ×7 (04:00→23:37)
[2019-03-16 06:00] VITALS: BP 122/79
[2019-03-16 06:00] LABS: HEMATOCRIT 35.6 % (42.0-52.0); HEMOGLOBIN 10.9 g/dl (13.5-17.5); MEAN CORPUSCULAR HEMOGLOBIN 28.5 pg (27.0-33.0); MEAN CORPUSCULAR HGB CONC 30.6 g/dl (32.0-36.5); MEAN CORPUSCULAR VOLUME 93.2 fl (80.0-96.0); PLATELET COUNT, AUTOMATED 276 10^3/uL (150-450); RED BLOOD COUNT 3.82 10^6/uL (4.30-6.10); WHITE BLOOD COUNT 6.6 10^3/uL (4.0-10.0)
[2019-03-16 06:23] LABS: CALCIUM LEVEL 8.6 MG/DL (8.8-10.2); CREATININE FOR GFR 1.26 MG/DL (0.70-1.30); GLOMERULAR FILTRATION RATE 59.2 (>42); POTASSIUM SERUM 4.4 MEQ/L (3.5-5.1)
[2019-03-16] MEDS: SUCRALFATE SUSP 1GM/10ML UD PO SCH ×4 (07:49→21:06)
[2019-03-16] MEDS: SITagliptin 50 MG TAB (JANUVIA) PO SCH (07:50)
[2019-03-16] MEDS: HumaLOG INSULIN (NovoLOG) PER UNIT SC SCH ×4 (07:50→21:00)
[2019-03-16] MEDS: oxyBUTYnin *DITROPAN XL* 5 MG TABCR PO SCH (07:50)
[2019-03-16] MEDS: GABAPENTIN 300 MG CAP PO SCH ×3 (07:50→21:06)
[2019-03-16] MEDS: FINASTERIDE 5 MG TAB PO SCH (07:51)
[2019-03-16] MEDS: SOLIFENACIN 5 MG TAB PO SCH (07:51)
[2019-03-16] MEDS: allopurinoL 100 MG TAB PO SCH ×2 (07:51→21:07)
[2019-03-16] MEDS: CARVedilol 12.5 MG TAB PO SCH ×2 (07:53→21:00)
--- NOTE | 2019-03-16 12:49 | IPN ---
DATE: 03/16/2019 Camron is doing fairly well. His hemoglobin was actually stable over the last 48 hours. Stool is becoming less black and abdominal discomfort is decreasing. PHYSICAL EXAM: Afebrile. Vital signs stable. LUNGS: Clear. HEART: Regular rhythm. 1/6 systolic ejection murmur. ABDOMEN: Soft, nontender. No masses. EXTREMITIES: Show trace peripheral edema. LAB: Hemoglobin is 10.7, which is stable. IMPRESSION: 1. Recurrent gastrointestinal (GI) bleeding, presumed upper GI bleeding, currently no GI available. Transfer out to [facility] has not been responded to. Nuclear bleeding scan as expected was unrevealing. When GI is back available will consult for consideration of upper endoscopy. 2. Dilated cardiomyopathy. As noted yesterday, he has a defibrillator vest on. Complicates plans for capsule endoscopy. Probably use implantable cardioverter defibrillator (ICD) placed for he can safely have capsule endoscopy. The rest of his medical problems are stable from yesterday.
[2019-03-16 14:00] VITALS: BP 105/61
[2019-03-16 21:00] VITALS: BP 92/56
[2019-03-16] MEDS: FUROSEMIDE 40 MG TAB PO SCH (21:00)
[2019-03-16] MEDS: BACLOFEN 5MG PER 1/2 TABLET PO SCH (21:06)
[2019-03-16] MEDS: PRAVASTATIN 20 MG TAB PO SCH (21:06)
[2019-03-16 22:00] VITALS: BP 95/57
[2019-03-16 23:00] VITALS: BP 102/62
[2019-03-17] MEDS: PANTOPRAZOLE SODIUM 40 MG in D5W 50 ML IV SCH ×4 (00:42→12:01)
[2019-03-17 02:00] VITALS: BP 104/62
[2019-03-17] MEDS: LEVALBUTEROL 1.25 MG/0.5 ML CONCENTRATE NEB INH SCH ×3 (04:51→11:35)
[2019-03-17 06:00] VITALS: BP 110/73
[2019-03-17 06:08] LABS: HEMATOCRIT 37.7 % (42.0-52.0); HEMOGLOBIN 11.5 g/dl (13.5-17.5); MEAN CORPUSCULAR HEMOGLOBIN 28.5 pg (27.0-33.0); MEAN CORPUSCULAR HGB CONC 30.5 g/dl (32.0-36.5); MEAN CORPUSCULAR VOLUME 93.3 fl (80.0-96.0); PLATELET COUNT, AUTOMATED 279 10^3/uL (150-450); RED BLOOD COUNT 4.04 10^6/uL (4.30-6.10)
[2019-03-17 06:32] LABS: CALCIUM LEVEL 9.1 MG/DL (8.8-10.2); CREATININE FOR GFR 1.28 MG/DL (0.70-1.30); GLOMERULAR FILTRATION RATE 58.2 (>42); POTASSIUM SERUM 4.4 MEQ/L (3.5-5.1)
[2019-03-17] MEDS: GABAPENTIN 300 MG CAP PO SCH (08:59)
[2019-03-17] MEDS: HumaLOG INSULIN (NovoLOG) PER UNIT SC SCH ×2 (08:59→12:39)
[2019-03-17] MEDS: FINASTERIDE 5 MG TAB PO SCH (08:59)
[2019-03-17] MEDS: SOLIFENACIN 5 MG TAB PO SCH (08:59)
[2019-03-17] MEDS: SITagliptin 50 MG TAB (JANUVIA) PO SCH (08:59)
[2019-03-17] MEDS: oxyBUTYnin *DITROPAN XL* 5 MG TABCR PO SCH (08:59)
[2019-03-17] MEDS: SUCRALFATE SUSP 1GM/10ML UD PO SCH ×2 (08:59→12:38)
[2019-03-17 09:00] VITALS: BP 105/56
[2019-03-17] MEDS: allopurinoL 100 MG TAB PO SCH (09:00)
[2019-03-17] MEDS: CARVedilol 12.5 MG TAB PO SCH ×2 (09:00→09:04)
[2019-03-17 10:00] VITALS: BP 122/76
--- NOTE | 2019-03-17 10:41 | IPN ---
DATE: 03/17/2019 Really no change with Camron. His hemoglobin has remained stable. We are still waiting for some gastrointestinal (GI) coverage to be available. PHYSICAL EXAMINATION: VITAL SIGNS: Stable. Afebrile. LUNGS: Clear. HEART: Regular rate and rhythm. ABDOMEN: Soft, nontender. No peripheral edema. LABORATORY DATA: Electrolytes are unremarkable. Hemoglobin is 11.5. IMPRESSION: 1. Recurrent gastrointestinal (GI) bleeding with presumed upper GI bleeding. We are still waiting for GI to become available as I would like him to have an upper endoscopy. He has a history of bleeding duodenal ulcer in the past. 2. Dilated cardiomyopathy. Defibrillator vest on. Plan implantable cardioverter defibrillator (ICD) so he can have capsule endoscopy. The patient is threatening to leave against medical advice, stating he is tired of waiting to be seen. I advised against this. We discussed the risks.
--- NOTE | 2019-03-21 17:45 | DSES ---
DATE OF ADMISSION: 03/13/2019 DATE OF DISCHARGE: 03/17/2019 PRINCIPAL DIAGNOSIS: Recurrent gastrointestinal (GI) bleeding, presumed upper GI bleeding. SECONDARY DIAGNOSES: 1. Cardiomyopathy, ejection fraction 20%. 2. Chronic kidney disease, stage III. 3. Acute blood loss anemia, recurrent, requiring 17 units of blood transfusion over the past year. HISTORY: The patient was admitted to the hospitalist service with anemia. He has had recurrent gastrointestinal (GI) bleeding, unknown source. He had a CT angiography that was unremarkable. Nuclear bleeding scan was unremarkable. He was transfused five units during this hospitalization. I wanted him to wait for gastroenterology to return. There was none available during the course of his hospitalization. He declined this and he left against medical advice on 03/17/2019. On the day of discharge, his white count was 8, hemoglobin 11.5, platelets 279. Sodium 139, potassium 4.4, blood urea nitrogen (BUN) 13, creatinine 1.3, glucose 134. Blood sugars were normal. Stool was positive for occult blood. Blood cultures were negative. Bleeding scan was negative. CT angiography was negative. DISPOSITION: He left against medical advice. He is to followup with primary care provider in a week. Activity as tolerated. Medicines were unchanged from before admission except his aspirin 81 mg daily was stopped. Otherwise, he was taking: - albuterol as needed - allopurinol 100 mg twice a day - baclofen 5 mg at bedtime - carvedilol 12.5 mg twice a day - finasteride 5 mg daily - Flonase nasal spray - furosemide 40 mg at bedtime - gabapentin 600 mg three times a day - guaifenesin ER 1200 mg every 12 hours - Basaglar insulin 14 units at bedtime - sliding scale regular insulin - omeprazole 40 mg twice a day - oxybutynin ER 5 mg daily - pravastatin 40 mg daily - Advair 250/50 one inhalation twice a day - Januvia 100 mg daily - Carafate 1 gram before meals and at bedtime Activity as tolerated. No-added salt diet.
== END 2019-03-17 15:03 | disposition home health service (06) | DRG 378 ==
LOC: M ED 14:43 → M ED INP 17:08 → ENRESERV 17:32 → M MSPAV 19:01
PROVIDERS: ADMIT General Practice; ATTEND Family Medicine
PROC: 30233N1 Transfusion of Nonautologous Red Blood Cells into Peripheral Vein, Percutaneous Approach (ICD-10-PCS; principal; 2019-03-13)
DX: K92.2 Gastrointestinal hemorrhage, unspecified (principal); I50.42 Chronic combined systolic (congestive) and diastolic (congestive) heart failure; D62 Acute posthemorrhagic anemia; Z68.41 Body mass index [BMI] 40.0-44.9, adult; E11.22 Type 2 diabetes mellitus with diabetic chronic kidney disease; J45.909 Unspecified asthma, uncomplicated; N18.3 Chronic kidney disease, stage 3 (moderate); Z79.899 Other long term (current) drug therapy; Z95.5 Presence of coronary angioplasty implant and graft; Z87.442 Personal history of urinary calculi; M10.9 Gout, unspecified; I25.5 Ischemic cardiomyopathy; N40.0 Benign prostatic hyperplasia without lower urinary tract symptoms; E78.5 Hyperlipidemia, unspecified; K44.9 Diaphragmatic hernia without obstruction or gangrene; I71.2 Thoracic aortic aneurysm, without rupture; I27.20 Pulmonary hypertension, unspecified; I25.2 Old myocardial infarction; K64.8 Other hemorrhoids; K57.90 Diverticulosis of intestine, part unspecified, without perforation or abscess without bleeding; Z90.49 Acquired absence of other specified parts of digestive tract; E11.40 Type 2 diabetes mellitus with diabetic neuropathy, unspecified; E66.01 Morbid (severe) obesity due to excess calories; G47.33 Obstructive sleep apnea (adult) (pediatric)

== ENCOUNTER → 2019-04-07 | Outpatient (REF) | payer MEDICARE ==
[~2019-04-07] MED LIST changes: +LISI-1046 PO; +OXYB-54 PO; -OXYB5TAB3 PO
== END ==
LOC: M SMT 13:04
PROVIDERS: ATTEND Nurse Practitioner Women's Health
DX: R33.9 Retention of urine, unspecified (principal)

== ENCOUNTER 2019-04-13 05:43 | Day surgery (SDC) | payer MEDICARE ==
[~2019-04-13] VITALS: Ht 172.7 cm; Wt 115.8 kg
[~2019-04-13 05:43] MED LIST changes: -SUCR10SS PO; +SUCR1ORA2 PO
[2019-04-13] MEDS ORDERED: fentaNYL 100 MCG/2 ML INJECTION (J3010) As Ordered ONE (06:57)
[2019-04-13] MEDS ORDERED: LR 1,000 ML IV ONE (07:00)
[2019-04-13] MEDS ORDERED: CLINDAMYCIN 900 MG in IV 1 EA IV ONE (07:00)
[2019-04-13] MEDS ORDERED: propofoL 500 MG/50 ML VIAL As Ordered ONE (07:05)
[2019-04-13] MEDS ORDERED: propofoL 200 MG/20 ML VIAL As Ordered ONE ×4 (07:05→09:18)
[2019-04-13] MEDS ORDERED: LIDOCAINE 2% INJ 100 MG/5 ML SDV (FOR ANES.) As Ordered ONE ×2 (07:05→08:00)
[2019-04-13] MEDS ORDERED: ROCURONIUM BROMIDE 50 MG/5 ML VIAL As Ordered ONE (07:05)
[2019-04-13] MEDS ORDERED: dexameTHASONE 4 MG/ML 1ML VIAL (J1100) As Ordered ONE (07:06)
[2019-04-13] MEDS ORDERED: ONDANSETRON 4MG/2ML VIAL (J2405) As Ordered ONE (07:06)
[2019-04-13] MEDS ORDERED: CONRAY-60 60% 50ML VIAL (Q9961) As Ordered ONE (07:12)
[2019-04-13] MEDS ORDERED: LIDOCAINE 2% 5ML JELLY UROJET As Ordered ONE (07:47)
[2019-04-13] MEDS ORDERED: ACETAMINOPHEN 1000MG 100ML IV BTL (OFIRMEV) (J0131 PER 10MG) As Ordered ONE (09:04)
--- NOTE | 2019-04-13 10:04 | REP ---
Retrograde pyelogram: Three views. Tree: Renal stones. Bladder stone. 226 seconds of fluoroscopy time is reported. Findings: A sequence of three last image hold fluoroscopically obtained spot radiographs of the abdomen document bilateral ureteral cannulation, contrast injection, and stent placement. There is some contrast extravasation on the right.. Electronically Signed by Nathaniel Wilkins MD 04/13/2019 09:56 A
[2019-04-13] MEDS ORDERED: fentaNYL 100 MCG/2 ML INJECTION (J3010) IV PRN (10:15)
[2019-04-13] MEDS ORDERED: ONDANSETRON 4MG/2ML VIAL (J2405) IV PRN (10:15)
[2019-04-13] MEDS ORDERED: LR 1,000 ML IV SCH (10:15)
[2019-04-13] MEDS ORDERED: oxyCODONE 5MG TAB PO PRN (10:15)
[2019-04-13 10:45] VITALS: BP 122/67
[2019-04-13] MEDS ORDERED: PERCOCET 5MG/325MG TAB PO PRN (11:16)
--- NOTE | 2019-04-14 08:48 | RO ---
DATE OF PROCEDURE: 04/13/2019 PREPROCEDURE DIAGNOSIS: Bilateral kidney stones. POSTPROCEDURE DIAGNOSIS: Bilateral kidney stones. PROCEDURE: Cystoscopy, bilateral ureteroscopy with laser lithotripsy and basket extraction of stones, bilateral retrograde pyelogram with intraoperative interpretation of images, left ureteral stent exchange, right ureteral stent placement. SURGEON: Harpreet Galeana MD ELEMENTARY READING SPECIALIST: None. ANESTHESIA: Monitored anesthesia care (MAC). OPERATIVE INDICATIONS: This is a 74-year-old male with bilateral kidney stones who underwent a left ureteral stent placement for obstructing proximal left ureteral stone 2 months ago. He is brought to the operating room today to treat all of his kidney stones. DESCRIPTION OF PROCEDURE: The patient was brought to the operating room where MAC anesthesia was administered. Culture-specific antibiotics were infused. He was then placed in dorsal lithotomy position and prepped and draped in the usual sterile fashion. A rigid cystoscope was inserted into the urethral meatus and advanced into the bladder. A guidewire was advanced up the left collecting system along side of previous placed stent. That ureteral stent was then removed. I then advanced the ureteral access sheath up the left collecting system. I went up the access sheath with a flexible ureteroscope and within the proximal ureter an approximately 8-9 mm stone was seen. The stone was fragmented into smaller pieces using a 200 micron laser fiber. All the fragments were then removed using a basket. I then examined the left kidney and there were several stone fragments throughout the left kidney. All these stones were then removed using a basket. A retrograde pyelogram was then performed and notable for moderate left hydronephrosis and no extravasation. I then withdrew the ureteroscope along with access sheath and no additional stones were seen within the ureter. The wire was then utilized to advance a 7-Cypriot x 22-32 cm JJ ureteral stent into the left collecting system. I then advanced a guidewire up the right collecting system. I advanced ureteral access sheath up the right collecting system. With the access sheath and flexible ureteroscope, I examined the right kidney. Within the right kidney there were two stones measuring about 8-9 mm in size. Both these stones were fragmented into smaller pieces using the laser, then the fragments were removed using a basket. Once satisfied all the stone fragments had been removed from the right kidney, a retrograde pyelogram was performed and notable for moderate right hydronephrosis and no extravasation. At this point, the ureteroscope was removed along with the access sheath and no additional stones were seen in the right ureter. I then utilized a wire to advance a 7-Cypriot x 22-32 cm JJ ureteral stent into the right collecting system. The wire was removed and there were adequate curls of the stent in the right renal pelvis and in the bladder. At this point, the cystoscope was removed and a 16-Cypriot Louie catheter was inserted into the bladder. The balloon was filled with 10 mL of sterile water and the catheter was connected to gravity drainage. This marked conclusion of procedure. The patient was then taken out of the dorsal lithotomy position, awakened from anesthesia and transported to recovery room in stable condition. Estimated blood loss: 5 mL. Complications: None. Specimen: Kidney stones. Plan: The patient will followup in clinic in a few weeks for stent removal and for a voiding trial. MENDEZ
== END 2019-04-13 11:28 | disposition home or self-care (01) ==
LOC: M SDC 05:43
PROVIDERS: ATTEND Urology
DX: N20.0 Calculus of kidney (principal); N21.0 Calculus in bladder; G90.3 Multi-system degeneration of the autonomic nervous system; Z96.0 Presence of urogenital implants; D50.0 Iron deficiency anemia secondary to blood loss (chronic); E78.00 Pure hypercholesterolemia, unspecified; M19.90 Unspecified osteoarthritis, unspecified site; J45.909 Unspecified asthma, uncomplicated; J44.9 Chronic obstructive pulmonary disease, unspecified; N40.0 Benign prostatic hyperplasia without lower urinary tract symptoms; M10.9 Gout, unspecified; E11.40 Type 2 diabetes mellitus with diabetic neuropathy, unspecified; M25.50 Pain in unspecified joint; G47.30 Sleep apnea, unspecified; I11.9 Hypertensive heart disease without heart failure; I25.2 Old myocardial infarction; Z95.5 Presence of coronary angioplasty implant and graft; Z87.19 Personal history of other diseases of the digestive system; Z86.39 Personal history of other endocrine, nutritional and metabolic disease; K21.9 Gastro-esophageal reflux disease without esophagitis; Z87.891 Personal history of nicotine dependence; Z79.899 Other long term (current) drug therapy; Z79.51 Long term (current) use of inhaled steroids; Z79.4 Long term (current) use of insulin
CPT/HCPCS: 52356; 74420; 82360; 88300; C1769; C1894; C2617; J0131; J2405; J3010; Q9961

== ENCOUNTER → 2019-04-19 | Outpatient (CLI) | payer MEDICARE ==
[~2019-04-19] MED LIST changes: +SUCR10SS PO; -SUCR1ORA2 PO
[2019-04-19 13:31] LABS: BASO % 0.3 % (0.0-1.0); EOS # 0.4 10^3/uL (0.0-0.5); HEMATOCRIT 39.8 % (42.0-52.0); HEMOGLOBIN 12.3 g/dl (13.5-17.5); LYMPH # 2.4 10^3/uL (1.5-5.0); LYMPH % 25.3 % (24.0-44.0); MEAN CORPUSCULAR HEMOGLOBIN 27.3 pg (27.0-33.0); MEAN CORPUSCULAR HGB CONC 30.9 g/dl (32.0-36.5); MEAN CORPUSCULAR VOLUME 88.4 fl (80.0-96.0); MONO # 0.8 10^3/uL (0.0-0.8); MONO % 8.5 % (0.0-5.0); NEUTROPHILS # 5.7 10^3/uL (1.5-8.5); NEUTROPHILS % 61.6 % (36.0-66.0); PLATELET COUNT, AUTOMATED 308 10^3/uL (150-450); WHITE BLOOD COUNT 9.3 10^3/uL (4.0-10.0)
[2019-04-19 14:12] LABS: BILIRUBIN,TOTAL 0.5 MG/DL (0.2-1.0); CALCIUM LEVEL 9.4 MG/DL (8.8-10.2); CREATININE FOR GFR 1.51 MG/DL (0.70-1.30); GLOMERULAR FILTRATION RATE 48.1 (>42); POTASSIUM SERUM 4.5 MEQ/L (3.5-5.1)
[2019-04-19 14:13] LABS: ALBUMIN 3.6 GM/DL (3.2-5.2); PERCENT SATURATION 10.1 % (19.7-50.0); TOTAL PROTEIN 7.3 GM/DL (6.4-8.2)
== END ==
LOC: M LAB 12:19
PROVIDERS: ATTEND Nurse Practitioner Family
DX: I10 Essential (primary) hypertension (principal); D50.0 Iron deficiency anemia secondary to blood loss (chronic)

== ENCOUNTER → 2019-05-17 | Outpatient (REF) | payer MEDICARE, MEDICAID ==
[~2019-05-17] MED LIST changes: -SUCR10SS PO; +SUCR1ORA2 PO
[2019-05-17 13:21] LABS: APPEARANCE, URINE HAZY (CLEAR); BACTERIA, URINE AUTO NEGATIVE (NEGATIVE); BILIRUBIN, URINE AUTO NEGATIVE (NEGATIVE); BLOOD, URINE BLOOD 3+ (NEGATIVE); COLOR, URINE YELLOW (YELLOW); GLUCOSE, URINE (UA) AUTO NEGATIVE (NEGATIVE); KETONE, URINE AUTO NEGATIVE (NEGATIVE); LEUKOCYTE ESTERASE, URINE AUTO 2+ (NEGATIVE); NITRITE, URINE AUTO NEGATIVE (NEGATIVE); PROTEIN, URINE AUTO 1+ mg/dL (NEGATIVE); RBC, URINE AUTO TNTC /HPF (0-3); SPECIFIC GRAVITY URINE AUTO 1.015 (1.002-1.035); SQUAMOUS EPITHELIAL CELL UR AU 0 /HPF (0-6); UROBILINOGEN, URINE AUTO 0.2 mg/dL (0.0-2.0); WBC, URINE AUTO 125 /HPF (0-3)
== END ==
LOC: M SMT 12:28
PROVIDERS: ATTEND Nurse Practitioner Women's Health
DX: N40.1 Benign prostatic hyperplasia with lower urinary tract symptoms (principal)
CPT/HCPCS: 51798; 81001; 87088; 87186; G0463

== ENCOUNTER 2019-10-29 12:16 | Emergency (ER) | payer MEDICARE, MEDICAID ==
[~2019-10-29 12:16] MED LIST changes: +ACET650T61 PO; -ASPI81TA85 PO; +ASPI81TA86 PO; -LISI-1046 PO; +LISI2.5T2 PO; -TYLE650T35 PO
[2019-10-29] MEDS ORDERED: CEPHALEXIN 500 MG CAP As Ordered ONE (14:59)
[2019-11-26 09:43] LABS: PARTIAL THROMBOPLASTIN TIME 31.5 SECONDS (25.0-38.4); PROTHROMBIN TIME 13.4 SECONDS (11.8-14.0)
[2019-11-26 09:45] LABS: APPEARANCE, URINE CLEAR (CLEAR); BACTERIA, URINE AUTO NEGATIVE (NEGATIVE); BASO % 0.3 % (0.0-1.0); BILIRUBIN, URINE AUTO NEGATIVE (NEGATIVE); BLOOD, URINE BLOOD NEGATIVE (NEGATIVE); COLOR, URINE YELLOW (YELLOW); EOS # 0.2 10^3/uL (0.0-0.5); EOS % 1.8 % (0.0-3.0); GLUCOSE, URINE (UA) AUTO NEGATIVE (NEGATIVE); HEMATOCRIT 46.5 % (42.0-52.0); HEMOGLOBIN 14.6 g/dl (13.5-17.5); KETONE, URINE AUTO NEGATIVE (NEGATIVE); LEUKOCYTE ESTERASE, URINE AUTO 1+ (NEGATIVE); LYMPH # 2.5 10^3/uL (1.5-5.0); MEAN CORPUSCULAR HEMOGLOBIN 29.1 pg (27.0-33.0); MEAN CORPUSCULAR HGB CONC 31.4 g/dl (32.0-36.5); MEAN CORPUSCULAR VOLUME 92.6 fl (80.0-96.0); MUCUS, URINE SMALL (NEGATIVE); NEUTROPHILS # 9.9 10^3/uL (1.5-8.5); NEUTROPHILS % 72.2 % (36.0-66.0); NITRITE, URINE AUTO NEGATIVE (NEGATIVE); PLATELET COUNT, AUTOMATED 190 10^3/uL (150-450); PROTEIN, URINE AUTO NEGATIVE (NEGATIVE); RBC, URINE AUTO 5 /HPF (0-3); RED BLOOD COUNT 5.02 10^6/uL (4.30-6.10); SPECIFIC GRAVITY URINE AUTO 1.012 (1.002-1.035); SQUAMOUS EPITHELIAL CELL UR AU 0 /HPF (0-6); UROBILINOGEN, URINE AUTO 0.2 mg/dL (0.0-2.0); WBC, URINE AUTO 13 /HPF (0-3); WHITE BLOOD COUNT 13.6 10^3/uL (4.0-10.0)
[2019-12-05 10:03] LABS: BILIRUBIN,DIRECT 0.3 MG/DL (0.0-0.2); BILIRUBIN,TOTAL 0.8 MG/DL (0.2-1.0); CALCIUM LEVEL 9.1 MG/DL (8.8-10.2); CREATININE FOR GFR 1.63 MG/DL (0.70-1.30); POTASSIUM SERUM 4.6 MEQ/L (3.5-5.1); TOTAL PROTEIN 7.8 GM/DL (6.4-8.2)
== END 2019-10-29 15:15 | disposition home or self-care (01) ==
LOC: M ED 12:16
DX: S30.22XA Contusion of scrotum and testes, initial encounter (principal); W50.0XXA Accidental hit or strike by another person, initial encounter; Y92.89 Other specified places as the place of occurrence of the external cause; N40.0 Benign prostatic hyperplasia without lower urinary tract symptoms; I50.9 Heart failure, unspecified; N18.3 Chronic kidney disease, stage 3 (moderate); K29.60 Other gastritis without bleeding; E11.22 Type 2 diabetes mellitus with diabetic chronic kidney disease; M10.9 Gout, unspecified; Z95.0 Presence of cardiac pacemaker; Z79.899 Other long term (current) drug therapy; Z79.4 Long term (current) use of insulin

== ENCOUNTER 2019-11-21 06:21 | Inpatient (IN) | payer MEDICARE, MEDICAID ==
[~2019-11-21] VITALS: Ht 172.7 cm; Wt 127.0 kg
[2019-11-21] VITALS (9 sets, daily range): BP systolic 107–113; BP diastolic 69–71; O2SAT 87
[2019-11-21] MEDS ORDERED: ceFAZolin 1GM VIAL (J0690 PER 500MG) As Ordered ONE ×2 (06:51→07:09)
[2019-11-21] MEDS ORDERED: ceFAZolin 2 GM/D5W 50 ML IV BAG (J0690 PER 500MG) As Ordered ONE (06:51)
[2019-11-21] MEDS ORDERED: MIDAZOLAM INJ 2MG/2ML VIAL (J2250 PER 1MG) As Ordered ONE ×2 (07:10→07:15)
[2019-11-21] MEDS ORDERED: fentaNYL 100 MCG/2 ML INJECTION (J3010) As Ordered ONE ×2 (07:10→08:17)
[2019-11-21] MEDS ORDERED: TRANEXAMIC ACID 100 MG/ML 10ML VIAL As Ordered ONE (07:11)
[2019-11-21] MEDS ORDERED: EPINEPHrine INJ 1 MG/ML 1ML AMP As Ordered ONE (07:11)
[2019-11-21] MEDS ORDERED: BUPIVACAINE LIPOSOME/PF 1.3% 20ML VIAL (13.3MG/ML)(EXPAREL)(C9290 PER1MG) As Ordered ONE (07:11)
[2019-11-21] MEDS ORDERED: propofoL 200 MG/20 ML VIAL As Ordered ONE (07:15)
[2019-11-21] MEDS ORDERED: LIDOCAINE 2% 100MG/5ML SDV (FOR ANES.) As Ordered ONE (07:15)
[2019-11-21] MEDS ORDERED: ONDANSETRON 4MG/2ML VIAL As Ordered ONE (07:15)
[2019-11-21] MEDS ORDERED: ceFAZolin SOD 1 GM in D5W MINI-BAG PLUS 50 ML IV ONE (07:15)
[2019-11-21] MEDS ORDERED: ceFAZolin SOD 2 GM in IV 1 EA IV ONE (07:15)
[2019-11-21] MEDS ORDERED: MIDAZOLAM INJ 2MG/2ML VIAL (J2250 PER 1MG) IV ONE (08:15)
[2019-11-21] MEDS ORDERED: fentaNYL 100 MCG/2 ML INJECTION (J3010) IV ONE (08:15)
[2019-11-21] MEDS ORDERED: ePHEDrine SULFATE 25 MG/5 ML(5MG/ML) SYRINGE As Ordered ONE (08:23)
[2019-11-21] MEDS ORDERED: ACETAMINOPHEN 1000MG 100ML IV BTL (OFIRMEV) (J0131 PER 10MG) As Ordered ONE (08:32)
[2019-11-21] MEDS ORDERED: ROPIvacaine 0.5% 30ML INJECTION (J2795 PER 1MG) ONE (09:47)
[2019-11-21] MEDS ORDERED: LIDOCAINE 1% MDV 20ML VIAL ONE (09:47)
[2019-11-21] MEDS ORDERED: dexameTHASONE 10MG/1ML VIAL PRES.FREE (J1100 PER 1MG) ONE (09:47)
[2019-11-21] MEDS ORDERED: fentaNYL 100 MCG/2 ML INJECTION (J3010) IV PRN (10:00)
[2019-11-21] MEDS ORDERED: LR 1,000 ML IV SCH ×2 (10:00→11:00)
[2019-11-21] MEDS ORDERED: HYDROMORPHONE HCL 0.5 MG/ 0.5 ML SYRINGE (J1170 PER 1) IV PRN (10:00)
[2019-11-21] MEDS ORDERED: ONDANSETRON 4MG/2ML VIAL IV PRN ×2 (10:00→11:00)
[2019-11-21] MEDS: oxyCODONE 5MG TAB PO PRN ×2 (10:40→11:09)
[2019-11-21] MEDS ORDERED: MORPHINE 2 MG/ML 1ML VIAL (J2270) IV PRN (11:00)
[2019-11-21] MEDS ORDERED: MORPHINE 4 MG/ML 1ML VIAL/SYRINGE (J2270) IV PRN (11:00)
[2019-11-21] MEDS ORDERED: ACETAMINOPHEN TAB 650MG DOSE (2X325MG) PO PRN (11:00)
[2019-11-21] MEDS ORDERED: oxyCODONE 5MG TAB As Ordered ONE (11:09)
[2019-11-21] MEDS ORDERED: SUCR1TAB56 PO (12:35)
[2019-11-21] MEDS ORDERED: TAMS1CAP17 PO (12:35)
[2019-11-21] MEDS ORDERED: BACL10TA2 PO (12:35)
[2019-11-21] MEDS ORDERED: NITR0.4S14 SL (12:35)
[2019-11-21] MEDS ORDERED: LIDO1PAD TOP (12:35)
[2019-11-21] MEDS ORDERED: DEXTROSE 50% 50 ML SYRINGE IV PRN (14:00)
[2019-11-21] MEDS ORDERED: GLUCOSE 4GM CHEW TABLET PO PRN (14:00)
[2019-11-21] MEDS ORDERED: ALBUTEROL SULFATE 2.5 MG/0.5 ML INH NEB SOLN INH PRN (14:00)
[2019-11-21] MEDS ORDERED: GLUCAGON INJ 1MG VIAL SC PRN (14:00)
[2019-11-21] MEDS ORDERED: ALBUTEROL 90 MCG/ACT 8GM HFA INHALER INH PRN (14:00)
--- NOTE | 2019-11-21 14:09 | CR.PDOC ---
General Date of Consultation: Nov 21, 2019 Consultation REASON FOR CONSULTATION/CHIEF COMPLAINT: Medical co-management HISTORY OF PRESENT ILLNESS: 74 yo male for left TKA, feels well this afternoon. Notes some lethargy, mild pain otherwise no acute medical complaints. Denies chest pain, shortness of breath, headaches, N/V/D. ALLERGIES: Please see below. HOME MEDICATIONS: Please see below. PAST MEDICAL HISTORY: BPH GOUT HYPERCHOLESTEROLEMIA ASTHMA ARTHRITIS NEPHROLITHIASIS CAD CHF CKD DM, TYPE II HTN INSOMNIA COPD SLEEP APNEA arrhythmia s/p PPM REVIEW OF SYSTEMS: Negative except as per HPI. PHYSICAL EXAMINATION: VITAL SIGNS: Please see below. GENERAL APPEARANCE: NAD, lying comfortably in bed HEENT: NC/AT, nasal cannula in place Chest: CTA B/L, PPM in left anterior chest Heart: +S1S2, RRR Abd: soft, NT, +BS Ext: no edema LABORATORY DATA: Please see below. ASSESSMENT/PLAN: 74 yo male POD #0 for left total knee arthroplasty, hospitalist consulted for me dical co-management, extensive PMHx #left TKA - as per primary team - ortho #BPH - continue home meds - flomax, finasteride #CHF - grossly compensated - lasix #arrhythmia - s/p PPM March 2019 #Gout - allopurinol #DLP - continue home meds - pravachol #CAD #DM - carb consistent diet, insulin sliding scale #HTN - continue carvedilol #COPD - continue respiratory treatments #ELIA #DVT prophylaxis - as per ortho/primary team Vital Signs/I&O Vital Signs Date Time Temp Pulse Resp B/P (MAP) Pulse Ox O2 Delivery O2 Flow Rate FiO2 11/21/19 13:36 18 11/21/19 13:30 96.9 60 109/70 (83) 97 Nasal Cannula 2.0 Allergies Coded Allergies: No Known Allergies (Unverified , 12/30/18) Home Medications Scheduled Allopurinol (Allopurinol) 100 Mg Tab, 100 MG PO BID, (Reported) Baclofen (Baclofen) 10 Mg Tab, 10 MG PO BID, (Reported) Carvedilol (Carvedilol) 12.5 Mg Tablet, 12.5 MG PO BID, (Reported) FOR SYSTOLIC BP < 130 Finasteride (Finasteride) 5 Mg Tab, 5 MG PO DAILY, (Reported) Furosemide (Furosemide) 40 Mg Tablet, 40 MG PO DAILY, (Reported) Gabapentin (Gabapentin) 600 Mg Tablet, 600 MG PO QID, (Reported) Insulin Glargine,Hum.rec.anlog (Basaglar Kwikpen U-100) 100 Unit/1 Ml Insuln.pen, 14 UNIT SC QHS, (Reported) Insulin Regular, Human (Novolin R) 100 Unit/1 Ml Vial, 1 DOSE SC AC, (Reported) PER SLIDING SCALE, MDD 15 UNITS Oxybutynin Chloride (Oxybutynin Chloride ER) 5 Mg Tab.er.24, 5 MG PO QHS, (Reported) Pravastatin Sodium (Pravastatin Sodium) 40 Mg Tab, 40 MG PO QHS, (Reported) Salmeterol/Fluticasone (Advair 250-50 Diskus) 14 Puff/Inhaler Aerp, 1 PUFF INH BID, (Reported) Sitagliptin Phosphate (Januvia) 100 Mg Tab, 100 MG PO DAILY, (Reported) Sucralfate (Sucralfate) 1 Gm Tablet, 1 GM PO BID, (Reported) Tamsulosin Hcl (Tamsulosin HCl) 0.4 Mg Capsule, 0.4 MG PO DAILY, (Reported) Scheduled PRN Acetaminophen (Acetaminophen ER) 650 Mg Tablet.er, 650 MG PO Q8H PRN for PAIN, (Reported) Albuterol Sulf (Albuterol Sulfate) 2.5 Mg/3 Ml Vial.neb, 2.5 MG INH Q4H PRN for SHORTNESS OF BREATH, (Reported) Albuterol Sulfate (Ventolin Hfa) 18 Gm Hfa.aer.ad, 2 PUFF INH Q4H PRN for SOB/WHEEZING, (Reported) Baclofen (Baclofen) 10 Mg Tablet, 10 MG PO DAILY PRN for SPASMS, (Reported) Fluticasone Propionate (Flonase Allergy Relief) 50 Mcg/Act Spr, 2 SPRAYS NARES DAILY PRN for CONGESTION, (Reported) Guaifenesin (Mucus ER) 1,200 Mg Tab.er.12h, 1,200 MG PO BID PRN for CONGESTION, (Reported) Lidocaine (Lidocaine) 5% Adh..patch, 1 PATCH TOP DAILY PRN for PAIN, (Reported) APPLY TO LOWER BACK Nitroglycerin (Nitroglycerin) 0.4 Mg Tab.subl, 0.4 MG SL NITRO PRN for CHEST PAIN, (Reported) Propylene Glycol/Peg 400 (Systane Gel Eye Drops) 10 Ml Drops.gel, 1 DROP OU QID PRN for DRY EYES, (Reported) RAFY PEREZ MD Nov 21, 2019 14:09
[2019-11-21] MEDS: FINASTERIDE 5 MG TAB PO SCH (15:07)
[2019-11-21] MEDS: ceFAZolin SOD 1 GM in D5W MINI-BAG PLUS 50 ML IV SCH (15:08)
[2019-11-21] MEDS: PERCOCET 5MG/325MG TAB PO PRN ×2 (15:57→20:42)
[2019-11-21] MEDS: HumaLOG INSULIN (NovoLOG) PER UNIT SC SCH (17:37)
[2019-11-21] MEDS: ceFAZolin SOD 2 GM in IV 1 EA IV SCH (17:38)
[2019-11-21] MEDS: GABAPENTIN 300 MG CAP PO SCH ×2 (17:38→20:41)
[2019-11-21] MEDS: ADVAIR HFA 115/21MCG INHALER INH SCH (18:12)
[2019-11-21] MEDS: CARVedilol 12.5 MG TAB PO SCH (20:31)
[2019-11-21] MEDS: allopurinoL 100 MG TAB PO SCH (20:41)
[2019-11-21] MEDS ORDERED: PRAVASTATIN 20 MG TAB PO SCH (21:00)
[2019-11-21] MEDS ORDERED: HumaLOG INSULIN (NovoLOG) PER UNIT SC SCH (21:00)
[2019-11-21] MEDS ORDERED: oxyBUTYnin *DITROPAN XL* 5 MG TABCR PO SCH (21:00)
[2019-11-22] MEDS: ceFAZolin SOD 1 GM in D5W MINI-BAG PLUS 50 ML IV SCH (00:28)
[2019-11-22] MEDS: PERCOCET 5MG/325MG TAB PO PRN ×3 (00:55→11:25)
[2019-11-22] MEDS: ceFAZolin SOD 2 GM in IV 1 EA IV SCH ×2 (01:01→09:16)
[2019-11-22 02:00] VITALS: BP 112/67
[2019-11-22] MEDS ORDERED: XARE10TA PO (05:51)
[2019-11-22] MEDS ORDERED: PERC5TAB12 PO (05:51)
[2019-11-22 06:00] VITALS: BP 120/82
[2019-11-22 06:50] LABS: HEMATOCRIT 40.6 % (42.0-52.0); HEMOGLOBIN 12.9 g/dl (13.5-17.5); MEAN CORPUSCULAR HEMOGLOBIN 30.1 pg (27.0-33.0); MEAN CORPUSCULAR HGB CONC 31.8 g/dl (32.0-36.5); MEAN CORPUSCULAR VOLUME 94.9 fl (80.0-96.0); PLATELET COUNT, AUTOMATED 177 10^3/uL (150-450); RED BLOOD COUNT 4.28 10^6/uL (4.30-6.10); WHITE BLOOD COUNT 14.6 10^3/uL (4.0-10.0)
[2019-11-22 07:17] LABS: CALCIUM LEVEL 8.5 MG/DL (8.8-10.2); CREATININE FOR GFR 1.58 MG/DL (0.70-1.30); GLOMERULAR FILTRATION RATE 45.6 (>42); POTASSIUM SERUM 5.1 MEQ/L (3.5-5.1)
[2019-11-22] MEDS: ADVAIR HFA 115/21MCG INHALER INH SCH (07:32)
[2019-11-22] MEDS: HumaLOG INSULIN (NovoLOG) PER UNIT SC SCH ×2 (07:45→11:30)
[2019-11-22] MEDS ORDERED: TAMSULOSIN 0.4 MG CAP PO SCH (09:00)
[2019-11-22] MEDS ORDERED: FUROSEMIDE 40 MG TAB PO SCH (09:00)
[2019-11-22 09:16] VITALS: BP 120/82
[2019-11-22] MEDS: FINASTERIDE 5 MG TAB PO SCH (09:16)
[2019-11-22] MEDS: CARVedilol 12.5 MG TAB PO SCH (09:16)
[2019-11-22] MEDS: GABAPENTIN 300 MG CAP PO SCH ×2 (09:16→12:52)
[2019-11-22] MEDS: allopurinoL 100 MG TAB PO SCH (09:17)
[2019-11-22 10:00] VITALS: BP 105/64
--- NOTE | 2019-11-22 12:22 | IPNPDOC ---
Text Note Date of Service The patient was seen on 11/22/19. NOTE Subjective: Patient is a 74 year old male who presented to [facility] for an elective total left knee arthroplasty. Hospitalist service was called on consultation. Patient was seen and examined at the bedside. Currently patient denies any CP, SOB or palpitations. Denies any cough, n/v, abdominal pain, C/D, or urinary discomfort. Patient reports that they have been out of bed. Will be working with PT today. Objective: Vitals (See below) General: Lying in bed, no acute distress, comfortable, AAOx3 HEENT: NC, AT CVS: +S1S2 Lungs: Fair air entry b/l, -w/r/r Abdomen: Soft, ND, NT Extremities: No evidence of Edema, - Calf tenderness Assessment and plan: Elective Left TKA (POD#1) - Pain control, physical therapy and anticoagulation as per orthopedic surgery - Anticipate likely DC today BPH - c/w Flomax and Finasteride Chronic CHF - No evidence of exacerbation - c/w Furosemide tomorrow; will hold today CKD3 - Cr slightly higher compared to baseline - Will hold Furosemide today Arrhythmia - s/p PPM March 2019 Gout - c/w allopurinol DLP - c/w pravastatin CAD - c/w Carvedilol and Pravastatin IDMM2 - c/w consistent consistent diet - c/w insulin sliding scale HTN - c/w carvedilol COPD - no evidence of exacerbation - c/w respiratory treatments as ordered ELIA - c/w ELIA Protocol DVT prophylaxis - c/w full anticoagulation as per Orthopedic surgery Disposition: - DC home today if cleared by PT Gustavo GUNN, I+O Gustavo GUNN I+O Laboratory Tests 11/22/19 06:37 Vital Signs Date Time Temp Pulse Resp B/P (MAP) Pulse Ox O2 Delivery O2 Flow Rate FiO2 11/22/19 11:25 20 Room Air 11/22/19 10:00 98.6 66 105/64 (78) 91 11/21/19 16:30 2.0 I&O- Last 24 Hours up to 6 AM 11/22/19 05:59 Intake Total 4285 ml Output Total 1000 ml Balance 3285 ml CARLENE LANDEROS MD Nov 22, 2019 12:21
[2019-11-22] MEDS ORDERED: RIVAROXABAN 10 MG TAB (XARELTO) PO SCH (18:00)
--- NOTE | 2019-11-25 15:26 | REP ---
PORTABLE LEFT KNEE: HISTORY: Status post replacement. TECHNIQUE: Portable AP and lateral views. FINDINGS: Patient is noted to be status post left knee replacement. Associated postoperative changes are appreciated. IMPRESSION: Status post left knee replacement. MENDEZ
--- NOTE | 2020-01-02 11:05 | DS ---
DATE OF ADMISSION: 11/21/2019 DATE OF DISCHARGE: 11/22/2019 DIAGNOSIS: Status post left total knee arthroplasty. HISTORY OF PRESENT ILLNESS: This is a pleasant, 74-year-old male who was complaining of continued end-stage symptomatic left knee osteoarthritis. He consented for a left total knee arthroplasty for Dr. Aiden Parkinson. Medical optimization was achieved. X-rays were consistent with advanced osteoarthritis. OPERATION PERFORMED: Left total knee arthroplasty. HOSPITAL COURSE: The patient uneventfully underwent left total knee arthroplasty under spinal anesthesia and was returned to recovery comfortable with the following instructions. DISCHARGE INSTRUCTIONS: Diet was regular, anticoagulation per protocol, weightbearing as tolerated with walker, and Percocet p.r.n. for pain. Optifoam dressing change in three to four days' time. Follow up with ortho in 14 days for wound check and potential staple removal. The patient is encouraged to contact our office sooner with increased pain, redness, drainage, numbness/tingling down the lower extremity, fever greater than 101, or any further concerns. MENDEZ
--- NOTE | 2020-01-06 06:57 | RO ---
DATE OF OPERATION: 11/21/2019 PREOPERATIVE DIAGNOSIS: Left knee osteoarthritis. POSTOPERATIVE DIAGNOSIS: Left knee osteoarthritis. PROCEDURE: Left total knee arthroplasty, ATTUNE rotating platform, posterior stabilized, size 6 femur, size 7 tibial tray, 12 polyethylene 35 patellar buttons. SURGEON: Aiden Parkinson MD MASTER AT ARMS: ABIMBOLA Caal ANESTHESIA: Spinal. ESTIMATED BLOOD LOSS: Less than 50. COMPLICATIONS: None. INDICATIONS: [age] year old with multiple medical problems who wished to undergo knee replacement. He could not longer tolerate the pain and understood the risks associated with it. PROCEDURE: The patient was taken to the operating room and placed in the supine position after spinal anesthesia was induced. The left lower extremity was prepped and draped in the usual sterile fashion. A timeout was performed, and tourniquet was inflated. A longitudinal incision was made over the anterior aspect of the knee. Medical parapatellar arthrotomy was performed. I then removed osteophytes using canal- initiating reamer. I had also done a medical release and removed some of the fat pad. Once the femoral canal initiating reamer had been used, I used an intramedullary guide set at 9 mm cut and 5 degrees of valgus. This was pinned in place and a distal femoral cut was made without difficulty protecting soft tissues. The femur was sized to be a 6. Drill holes were placed on the end of the femur with external rotation dialed in, and the cutting block was then secured. The remaining 4 cuts were made. Excellent appearance was noted to the femur. We then prepared the tibia. Tibial alignment guide was placed in an appropriate amount of valgus and posterior slope. This was pinned in place at 4 mm off of the low side, which was very sclerotic, and I made theproximal tibia cut, removing this bone. The PCL was deficient. I then used a carpentry foreman to remove soft tissue and osteophytes from either side of the knee. The box cut was then prepared with a box cutting guide secured and the remaining 3 cuts were made, making sure I removed adequate bone in the box to accommodate the prosthesis. I then prepared the tibial surface, and the tibial tray, size 7, fit very nicely. This was pinned in place, drilled, broached, and prior to that I used spacer blocks and decided on probably the 12 polyethylene, which had excellent alignment and stability in flexion and extension. I then trialed the components, impacted the femur in place, placed the 12 polyethylene and this allowed for excellent range of motion and stability. I was able to fully extend them. The patella was then free-hand cut removing about 7 mm of bone, sized to be a 35, drill holes were placed, and the patella tracked very nicely. I drilled the holes in the end of the femur and removed the trial components, irrigated the bony surfaces copiously, injected the Exparel in the deep tissues. The health center assistant prepared the bone cement in Modern technique. Once the surfaces were dry, I cemented in the components and removed all excess bone cement. I irrigated again copiously, placed the TXA in the deep tissues and then repaired the deep layer with interrupted #1 Vicryl suture and removed the patellar clamp when the cement was hardened. Final deep irrigation was performed. I then repaired the remaining deep layer with running STRATAFIX suture. There was a watertight closure obtained, and then put the knee through a range of motion and there was excellent stability and tracking. I then irrigated nd closed the subcutaneous with 2-0 Vicryl and the skin with jaime. Sterile dressing was applied. The tourniquet had beendeflated once the cement had hardened, and he was taken to the recovery room in stable condition. There were no known complications. The plan will be routine postoperative. The health center assistant was instrumental in holding the retractors and assisting in the mixing of bone cement, and assisting in wound closure. This was coded as an unusually difficulty procedure. The patient had morbid obesity with a BMI over 40 and this added to the complexity of the case. It added to the time, and the dissection and exposure was more difficult as was the wound closure MTDD
--- NOTE | 2020-01-06 11:40 | IPN ---
DATE: 11/21/2019 SUBJECTIVE: Patient seen and examined. He wishes to undergo a left total knee arthroplasty. He was given preoperative medical clearance. He understands the nature and risks of the procedure. Risks include bleeding, infection, damage to nerves, vessels, persistent pain, wear, loosening, fracture, blood clots, medical problems, , among others. He understands that he is at higher risk due to his comorbidities and his morbid obesity. MENDEZ
== END 2019-11-22 13:05 | disposition home or self-care (01) | DRG 470 ==
LOC: M OR 06:21 → M MS5PR 11:20
PROVIDERS: ADMIT Orthopaedic Surgery; ATTEND Orthopaedic Surgery
PROC: 0SRD0J9 Replacement of Left Knee Joint with Synthetic Substitute, Cemented, Open Approach (ICD-10-PCS; principal; 2019-11-21 07:30)
DX: M17.12 Unilateral primary osteoarthritis, left knee (principal); Z68.41 Body mass index [BMI] 40.0-44.9, adult; I13.0 Hypertensive heart and chronic kidney disease with heart failure and stage 1 through stage 4 chronic kidney disease, or unspecified chronic kidney disease; E66.01 Morbid (severe) obesity due to excess calories; N40.0 Benign prostatic hyperplasia without lower urinary tract symptoms; M10.9 Gout, unspecified; E78.00 Pure hypercholesterolemia, unspecified; J45.909 Unspecified asthma, uncomplicated; I25.10 Atherosclerotic heart disease of native coronary artery without angina pectoris; I50.9 Heart failure, unspecified; N18.3 Chronic kidney disease, stage 3 (moderate); I49.9 Cardiac arrhythmia, unspecified; E11.22 Type 2 diabetes mellitus with diabetic chronic kidney disease; G47.00 Insomnia, unspecified; J44.9 Chronic obstructive pulmonary disease, unspecified; G47.33 Obstructive sleep apnea (adult) (pediatric); Z95.0 Presence of cardiac pacemaker; Z79.4 Long term (current) use of insulin; Z79.899 Other long term (current) drug therapy

== ENCOUNTER → 2020-02-29 | Outpatient (REF) | payer MEDICARE, MEDICAID ==
[~2020-02-29] MED LIST changes: +BACL10TA2 PO; +LIDO1PAD TOP; +NITR0.4S14 SL; +PERC5TAB12 PO; +SUCR1TAB56 PO; +TAMS1CAP17 PO; +XARE10TA PO
[2020-02-29 17:44] LABS: APPEARANCE, URINE CLEAR (CLEAR); BACTERIA, URINE AUTO NEGATIVE (NEGATIVE); BILIRUBIN, URINE AUTO NEGATIVE (NEGATIVE); BLOOD, URINE BLOOD NEGATIVE (NEGATIVE); COLOR, URINE YELLOW (YELLOW); GLUCOSE, URINE (UA) AUTO 3+ mg/dL (NEGATIVE); KETONE, URINE AUTO NEGATIVE (NEGATIVE); LEUKOCYTE ESTERASE, URINE AUTO TRACE (NEGATIVE); NITRITE, URINE AUTO NEGATIVE (NEGATIVE); PROTEIN, URINE AUTO NEGATIVE (NEGATIVE); RBC, URINE AUTO 1 /HPF (0-3); SPECIFIC GRAVITY URINE AUTO 1.027 (1.002-1.035); SQUAMOUS EPITHELIAL CELL UR AU 0 /HPF (0-6); UROBILINOGEN, URINE AUTO 0.2 mg/dL (0.0-2.0); WBC, URINE AUTO 32 /HPF (0-3)
== END ==
LOC: M SMT 17:05
PROVIDERS: ATTEND Nurse Practitioner Women's Health
DX: R30.0 Dysuria (principal)
CPT/HCPCS: 51798; 81001; 87088; 87186; G0463

== ENCOUNTER → 2020-08-10 | Outpatient (CLI) | payer MEDICARE, MEDICAID ==
--- NOTE | 2020-08-12 06:44 | REP ---
INDICATION: KIDNEY STONEXR1,US2 COMPARISON: None. TECHNIQUE: Supine views of the abdomen and pelvis. FINDINGS: Evaluation of the urinary tract system is significantly limited due to technique and overlying bowel gas. Small nephroliths cannot definitively be excluded. The bowel gas pattern is nonspecific. The skeletal structures demonstrate age-related degenerative changes. No foreign body. IMPRESSION: Limited evaluation for urinary tract calcifications. If clinically warranted consider noncontrast CT of the abdomen and pelvis. <Electronically signed by Isak Urbina > 08/12/20 [id number]
--- NOTE | 2020-08-12 07:38 | REP ---
INDICATION: URINARY RETEN KIDNEY STONES / BPH PROSTATE VOLUMEXR1,US2* COMPARISON: None TECHNIQUE: Real time B-mode ultrasound examination using curved array transducer. FINDINGS: Bladder is normal in appearance without wall thickening or mass lesion. Bilateral ureteral jets are identified. Prostate gland measures 2.9 x 2.8 x 2.9 cm (12 cc). Prevoid bladder measures 10.3 x 6.0 x 6.3 cm (254 cc). Postvoid bladder measures 7.7 x 4.4 x 4.6 cm (102 cc). Postvoid residual: 40% IMPRESSION: 1. Elevated postvoid residual volume. 2. No obvious anatomical abnormality identified. <Electronically signed by Isak Urbina > 08/12/20 0713
--- NOTE | 2020-08-12 07:41 | REP ---
INDICATION: URINARY RETEN KIDNEY STONES / BPH PROSTATE VOLUMEXR1,US2* COMPARISON: 02/08/2019 TECHNIQUE: Real time mckenzie scale ultrasound examination using curved array transducer. FINDINGS: Right kidney is normal in contour, size, echogenicity, and reniform shape without hydronephrosis, nephrolithiasis, cystic or renal mass lesion. Kidney measures 11.3 x 6.1 x 5.5 cm. Left kidney measures 12.3 x 5.7 x 4.7 cm and includes 8 mm upper pole nonobstructing calculus along with 1.3 cm and 1.6 cm lower pole cysts. No hydronephrosis, or renal mass lesion. IMPRESSION: Right kidney appears relatively normal. Nonobstructing calculus and small cyst in the left kidney suspected. <Electronically signed by Isak Urbina > 08/12/20 0737
== END ==
LOC: M RAD 12:44
PROVIDERS: ATTEND Specialist
DX: R33.9 Retention of urine, unspecified (principal); N20.0 Calculus of kidney; N40.0 Benign prostatic hyperplasia without lower urinary tract symptoms

== ENCOUNTER 2020-08-27 12:05 | Emergency (ER) | payer MEDICARE, OTHER ==
[~2020-08-27] VITALS: Ht 172.7 cm; Wt 124.1 kg
--- NOTE | 2020-08-27 12:35 | REP ---
INDICATION: Altered Mental Status COMPARISON: None. TECHNIQUE: Axial noncontrast images from the skull base to the thoracic inlet with coronal reformations. This CT examination was performed using the following dose reduction techniques: Automated exposure control, adjustment of mA and/or kv according to the patient's size, and use of iterative reconstruction technique. FINDINGS: Atrophy with periventricular leukomalacia and microvascular ischemic changes are appreciated. The ventricles and sulci are symmetric. Belcher-white differentiation is maintained. There is no evidence for acute intracranial hemorrhage, mass/mass effect, pathology or infarction. No extra-axial fluid collection. Calvarium is intact. Paranasal sinuses and mastoid air cells are clear. IMPRESSION: Atrophy and microvascular ischemic changes. No acute intracranial hemorrhage, infarction, or mass/mass effect. <Electronically signed by Isak Urbina > 08/27/20 [id number]
[2020-08-27 12:51] LABS: BASO # 0.1 10^3/uL (0.0-0.2); BASO % 0.5 % (0.0-1.0); EOS # 0.4 10^3/uL (0.0-0.5); EOS % 3.2 % (0.0-3.0); HEMATOCRIT 49.5 % (42.0-52.0); HEMOGLOBIN 15.7 g/dl (13.5-17.5); LYMPH # 2.5 10^3/uL (1.5-5.0); LYMPH % 22.2 % (24.0-44.0); MEAN CORPUSCULAR HGB CONC 31.7 g/dl (32.0-36.5); MEAN CORPUSCULAR VOLUME 94.5 fl (80.0-96.0); MONO # 0.7 10^3/uL (0.0-0.8); MONO % 6.1 % (2.0-8.0); NEUTROPHILS # 7.5 10^3/uL (1.5-8.5); NEUTROPHILS % 67.1 % (36.0-66.0); PLATELET COUNT, AUTOMATED 216 10^3/uL (150-450); RED BLOOD COUNT 5.24 10^6/uL (4.30-6.10); WHITE BLOOD COUNT 11.2 10^3/uL (4.0-10.0)
[2020-08-27] MEDS ORDERED: OZEM2INJ2 (13:10)
[2020-08-27] MEDS ORDERED: MECLIZINE 25 MG TABLET PO ONE (13:20)
[2020-08-27 13:27] LABS: ALBUMIN 3.8 GM/DL (3.2-5.2); ALT/SGPT 43 U/L (12-78); BILIRUBIN,DIRECT 0.2 MG/DL (0.0-0.2); BILIRUBIN,TOTAL 0.7 MG/DL (0.2-1.0); BLOOD UREA NITROGEN 22 MG/DL (7-18); CALCIUM LEVEL 9.2 MG/DL (8.8-10.2); CARBON DIOXIDE LEVEL 28 MEQ/L (21-32); CHLORIDE LEVEL 103 MEQ/L (98-107); CK-MB VALUE MASS 1.8 NG/ML (<3.6); CPK CREATINE PHOSPHOKINASE 122 U/L (39-308); CREATININE FOR GFR 1.36 MG/DL (0.70-1.30); GLOMERULAR FILTRATION RATE 54.1 (>42); GLUCOSE, FASTING 197 MG/DL (70-100); MB/CK RELATIVE INDEX 1.48 (< OR =4); POTASSIUM SERUM 4.7 MEQ/L (3.5-5.1); SODIUM LEVEL 136 MEQ/L (136-145); TOTAL PROTEIN 7.5 GM/DL (6.4-8.2); TROPONIN I < 0.02 NG/ML (< 0.10)
[2020-08-27 13:33] LABS: OSMOLALITY SERUM 298 MOSM/KG (280-301)
--- NOTE | 2020-08-27 13:51 | REP ---
INDICATION: trauma COMPARISON: None. TECHNIQUE: AP, lateral, bilateral oblique views right 2nd digit. FINDINGS: Evaluation is limited by osteopenia and advanced arthritic degenerative changes. Overlying soft tissue swelling noted. Small fractured osteophyte cannot be excluded at the DIP joint. No other obvious fracture or dislocation is appreciated. IMPRESSION: Limited by advanced degenerative changes. <Electronically signed by Isak Urbina > 08/27/20 [id number]
[2020-08-27] MEDS ORDERED: MECL-86 PO (15:06)
[2020-08-27] MEDS ORDERED: vestibular PT (15:08)
[2020-08-27 15:30] VITALS: BP 110/67
--- NOTE | 2020-08-27 18:23 | ECGEPIP ---
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
== END 2020-08-27 15:50 | disposition home or self-care (01) ==
LOC: M ED 12:05
DX: R42 Dizziness and giddiness (principal); I49.8 Other specified cardiac arrhythmias; E11.9 Type 2 diabetes mellitus without complications; I10 Essential (primary) hypertension; I25.10 Atherosclerotic heart disease of native coronary artery without angina pectoris; J45.909 Unspecified asthma, uncomplicated; J44.9 Chronic obstructive pulmonary disease, unspecified; E78.5 Hyperlipidemia, unspecified; N40.0 Benign prostatic hyperplasia without lower urinary tract symptoms; M10.9 Gout, unspecified; G47.30 Sleep apnea, unspecified; Z95.5 Presence of coronary angioplasty implant and graft; Z95.0 Presence of cardiac pacemaker; Z90.89 Acquired absence of other organs; F17.200 Nicotine dependence, unspecified, uncomplicated; Z79.4 Long term (current) use of insulin; Z79.899 Other long term (current) drug therapy

== ENCOUNTER → 2020-08-30 | Outpatient (CLI) | payer MEDICARE, OTHER ==
[~2020-08-30] MED LIST changes: +MECL-86 PO; +OZEM2INJ2; +vestibular PT
[2020-08-30 14:53] LABS: APPEARANCE, URINE CLEAR (CLEAR); BACTERIA, URINE AUTO NEGATIVE (NEGATIVE); BILIRUBIN, URINE AUTO NEGATIVE (NEGATIVE); BLOOD, URINE BLOOD NEGATIVE (NEGATIVE); COLOR, URINE YELLOW (YELLOW); GLUCOSE, URINE (UA) AUTO 3+ mg/dL (NEGATIVE); HEMATOCRIT 47.9 % (42.0-52.0); HEMOGLOBIN 15.4 g/dl (13.5-17.5); KETONE, URINE AUTO NEGATIVE (NEGATIVE); LEUKOCYTE ESTERASE, URINE AUTO NEGATIVE (NEGATIVE); MEAN CORPUSCULAR HEMOGLOBIN 30.6 pg (27.0-33.0); MEAN CORPUSCULAR HGB CONC 32.2 g/dl (32.0-36.5); NITRITE, URINE AUTO NEGATIVE (NEGATIVE); PLATELET COUNT, AUTOMATED 208 10^3/uL (150-450); PROTEIN, URINE AUTO NEGATIVE (NEGATIVE); RBC, URINE AUTO 0 /HPF (0-3); RED BLOOD COUNT 5.04 10^6/uL (4.30-6.10); SPECIFIC GRAVITY URINE AUTO 1.017 (1.002-1.035); SQUAMOUS EPITHELIAL CELL UR AU 0 /HPF (0-6); UROBILINOGEN, URINE AUTO 0.2 mg/dL (0.0-2.0); WBC, URINE AUTO 1 /HPF (0-3); WHITE BLOOD COUNT 9.8 10^3/uL (4.0-10.0)
[2020-08-30 15:18] LABS: CALCIUM LEVEL 9.3 MG/DL (8.8-10.2); CREATININE FOR GFR 1.42 MG/DL (0.70-1.30); GLOMERULAR FILTRATION RATE 51.5 (>42); POTASSIUM SERUM 4.3 MEQ/L (3.5-5.1)
== END ==
LOC: M LAB 14:01
PROVIDERS: ATTEND Specialist
DX: R33.9 Retention of urine, unspecified (principal); Z12.5 Encounter for screening for malignant neoplasm of prostate
CPT/HCPCS: 36415; 80048; 81001; 85027; 87086; G0103

== ENCOUNTER → 2020-09-02 | Outpatient (CLI) | payer MEDICARE, MEDICAID | LOC: M LABSMTC 09:35 | PROVIDERS: ATTEND Anesthesiology | DX: Z01.818 Encounter for other preprocedural examination (principal); Z11.52 Encounter for screening for COVID-19 ==

== ENCOUNTER 2020-09-07 13:50 | Day surgery (SDC) | payer MEDICARE, MEDICAID ==
[~2020-09-07] VITALS: Ht 172.7 cm; Wt 122.8 kg
[~2020-09-07 13:50] MED LIST changes: +LIDOCAINE 1% MDV 20ML VIAL SQ PRN; +LIDOCAINE 2% 100MG/5ML SDV (FOR ANES.) As Ordered ONE; +LR 1,000 ML IV ONE; +ONDANSETRON 4MG/2ML VIAL As Ordered ONE; +dexameTHASONE 4 MG/ML 1ML VIAL (J1100 PER 1MG) As Ordered ONE; +fentaNYL 100 MCG/2 ML INJECTION (J3010) As Ordered ONE; +propofoL 200 MG/20 ML VIAL As Ordered ONE
[2020-09-07] MEDS ORDERED: OMEP40CA97 PO (14:51)
[2020-09-07] MEDS ORDERED: ceFAZolin SOD 2 GM in IV 1 EA IV ONE (15:30)
[2020-09-07] MEDS ORDERED: propofoL 200 MG/20 ML VIAL As Ordered ONE (17:45)
[2020-09-07] MEDS ORDERED: FUROSEMIDE 100MG/10ML VIAL (J1940) As Ordered ONE (18:05)
[2020-09-07] MEDS ORDERED: CIPR-249 PO (18:42)
[2020-09-07] MEDS ORDERED: LR 1,000 ML IV SCH (19:10)
[2020-09-07] MEDS ORDERED: ONDANSETRON 4MG/2ML VIAL IV PRN (19:10)
[2020-09-07] MEDS ORDERED: oxyCODONE 5MG TAB PO PRN (19:10)
[2020-09-07] MEDS ORDERED: fentaNYL 100 MCG/2 ML INJECTION (J3010) IV PRN (19:10)
[2020-09-07] MEDS ORDERED: ACETAMINOPHEN TAB 650MG DOSE (2X325MG) PO PRN (19:10)
[2020-09-07] MEDS ORDERED: ALBUTEROL SULFATE 2.5 MG/0.5 ML INH NEB SOLN INH ONE (19:20)
[2020-09-07 19:50] VITALS: BP 133/72
--- NOTE | 2020-09-09 10:51 | RO ---
OPERATIVE NOTE DATE OF OPERATION: 09/07/2020 PREOPERATIVE DIAGNOSIS: Benign prostatic hyperplasia. POSTOPERATIVE DIAGNOSIS: Benign prostatic hyperplasia. PROCEDURE: Cystoscopy, button transurethral electrovaporization of the prostate. SURGEON: Dr. Harpreet Galeana PAN GREASER: None. ANESTHESIA: General. OPERATIVE INDICATIONS: This is a 75-year-old male with benign prostatic hyperplasia and incomplete bladder emptying. He was brought to the operating room today for treatment. DESCRIPTION OF PROCEDURE: The patient was brought to the operating room, and general anesthesia was induced. Prophylactic antibiotics were infused. He was placed in the dorsal lithotomy position and prepped and draped in the usual sterile fashion. At this point, a resectoscope was inserted into the urethral meatus and advanced to the bladder. Of note, the patient had bilobar benign prostatic hyperplasia. I made note of the location of both ureteral orifices as well as the verumontanum. I then began vaporization of hyperplastic tissue circumferentially at the bladder neck and then on both lateral lobes. I kept doing this until there was a clear channel established through the prostate. All throughout the procedure I made sure not to vaporize close to the ureteral orifices or distal to the verumontanum. Once there was a clear channel established, hemostasis was obtained using coagulation current. Satisfied with hemostasis, the resectoscope was removed, and an 18-Portuguese Louie catheter was inserted into the bladder. The balloon was filled with 15 mL sterile water, and then catheter was connected to gravity drainage. This marked the conclusion of the procedure. The patient was taken out of the dorsal lithotomy position, awakened from anesthesia, and transported to the recovery room in stable condition. ESTIMATED BLOOD LOSS: 20 mL. COMPLICATIONS: None. SPECIMENS: None. PLAN: The patient will followup in urology clinic in approximately 1 week for catheter removal and voiding trial.
== END 2020-09-07 19:53 | disposition home or self-care (01) ==
LOC: M SDC 13:50
PROVIDERS: ATTEND Urology
DX: N40.1 Benign prostatic hyperplasia with lower urinary tract symptoms (principal); E11.40 Type 2 diabetes mellitus with diabetic neuropathy, unspecified; E66.01 Morbid (severe) obesity due to excess calories; E78.2 Mixed hyperlipidemia; G47.33 Obstructive sleep apnea (adult) (pediatric); I11.0 Hypertensive heart disease with heart failure; I25.10 Atherosclerotic heart disease of native coronary artery without angina pectoris; I25.2 Old myocardial infarction; I25.5 Ischemic cardiomyopathy; I50.42 Chronic combined systolic (congestive) and diastolic (congestive) heart failure; J44.9 Chronic obstructive pulmonary disease, unspecified; J45.909 Unspecified asthma, uncomplicated; M12.9 Arthropathy, unspecified; R12 Heartburn; R94.31 Abnormal electrocardiogram [ECG] [EKG]; Z68.41 Body mass index [BMI] 40.0-44.9, adult; Z79.4 Long term (current) use of insulin; Z79.899 Other long term (current) drug therapy; Z88.6 Allergy status to analgesic agent; Z87.891 Personal history of nicotine dependence; Z95.5 Presence of coronary angioplasty implant and graft; Z95.810 Presence of automatic (implantable) cardiac defibrillator; Z96.612 Presence of left artificial shoulder joint
CPT/HCPCS: 52601; J0690; J1100; J1940; J2405; J3010

== ENCOUNTER 2020-09-13 14:30 | Outpatient (RCR) | payer MEDICARE, OTHER ==
[~2020-09-13 14:30] MED LIST changes: +CIPR-249 PO; -LIDOCAINE 1% MDV 20ML VIAL SQ PRN; -LIDOCAINE 2% 100MG/5ML SDV (FOR ANES.) As Ordered ONE; -LR 1,000 ML IV ONE; +NEOM28OI TOP; +OMEP40CA4 PO; -ONDANSETRON 4MG/2ML VIAL As Ordered ONE; -TRIPOIN5 TOP; -dexameTHASONE 4 MG/ML 1ML VIAL (J1100 PER 1MG) As Ordered ONE; -fentaNYL 100 MCG/2 ML INJECTION (J3010) As Ordered ONE; -propofoL 200 MG/20 ML VIAL As Ordered ONE
== END 2020-09-26 ==
LOC: M PT 14:30
PROVIDERS: ATTEND Nurse Practitioner Family
DX: R42 Dizziness and giddiness (principal)

== ENCOUNTER → 2020-09-24 | Outpatient (REF) | payer MEDICARE, MEDICAID ==
[2020-09-24 17:16] LABS: APPEARANCE, URINE HAZY (CLEAR); BACTERIA, URINE AUTO NEGATIVE (NEGATIVE); BILIRUBIN, URINE AUTO NEGATIVE (NEGATIVE); BLOOD, URINE BLOOD 3+ (NEGATIVE); COLOR, URINE STRAW (YELLOW); GLUCOSE, URINE (UA) AUTO 3+ mg/dL (NEGATIVE); KETONE, URINE AUTO NEGATIVE (NEGATIVE); LEUKOCYTE ESTERASE, URINE AUTO 3+ (NEGATIVE); NITRITE, URINE AUTO NEGATIVE (NEGATIVE); PROTEIN, URINE AUTO NEGATIVE (NEGATIVE); RBC, URINE AUTO 85 /HPF (0-3); SPECIFIC GRAVITY URINE AUTO 1.013 (1.002-1.035); SQUAMOUS EPITHELIAL CELL UR AU 0 /HPF (0-6); UROBILINOGEN, URINE AUTO 0.2 mg/dL (0.0-2.0); WBC, URINE AUTO 54 /HPF (0-3)
== END ==
LOC: M SMT 16:44
PROVIDERS: ATTEND Nurse Practitioner Family
DX: N40.1 Benign prostatic hyperplasia with lower urinary tract symptoms (principal)

== ENCOUNTER 2021-02-08 10:06 | Outpatient (RCR) | payer MEDICARE, OTHER ==
[~2021-02-08 10:06] MED LIST changes: -LISI2.5T2 PO; +LISI2.5T9 PO; +OMEP-173 PO; -OMEP-218 PO
== END 2021-02-26 ==
LOC: M PT 10:06
PROVIDERS: ATTEND Family Medicine
DX: R42 Dizziness and giddiness (principal)

== ENCOUNTER → 2021-03-14 | Outpatient (REF) | payer MEDICARE, OTHER, MEDICAID ==
[2021-03-14 18:59] LABS: APPEARANCE, URINE CLEAR (CLEAR); BACTERIA, URINE AUTO NEGATIVE (NEGATIVE); BILIRUBIN, URINE AUTO NEGATIVE (NEGATIVE); BLOOD, URINE BLOOD NEGATIVE (NEGATIVE); COLOR, URINE STRAW (YELLOW); GLUCOSE, URINE (UA) AUTO 3+ mg/dL (NEGATIVE); KETONE, URINE AUTO NEGATIVE (NEGATIVE); LEUKOCYTE ESTERASE, URINE AUTO NEGATIVE (NEGATIVE); MUCUS, URINE SMALL (NEGATIVE); NITRITE, URINE AUTO NEGATIVE (NEGATIVE); PROTEIN, URINE AUTO NEGATIVE (NEGATIVE); RBC, URINE AUTO 0 /HPF (0-3); SPECIFIC GRAVITY URINE AUTO 1.013 (1.002-1.035); SQUAMOUS EPITHELIAL CELL UR AU 0 /HPF (0-6); UROBILINOGEN, URINE AUTO 0.2 mg/dL (0.0-2.0); WBC, URINE AUTO 3 /HPF (0-3)
== END ==
LOC: M SMT 17:04
PROVIDERS: ATTEND Nurse Practitioner Women's Health
DX: R39.15 Urgency of urination (principal)

== ENCOUNTER 2021-10-30 19:57 | Emergency (ER) | payer MEDICAID, MEDICARE, OTHER ==
[~2021-10-30] VITALS: Ht 172.7 cm; Wt 109.1 kg
[~2021-10-30 19:57] MED LIST changes: +ALBU2.5V10 INH; -ALBU83IN INH; +NYST-13 TOP; -NYST10CR TOP
[2021-10-30 22:03] LABS: BASO # 0.1 10^3/uL (0.0-0.2); BASO % 0.4 % (0.0-1.0); EOS # 0.3 10^3/uL (0.0-0.5); EOS % 2.7 % (0.0-3.0); HEMATOCRIT 47.6 % (42.0-52.0); HEMOGLOBIN 15.4 g/dl (13.5-17.5); LYMPH # 2.4 10^3/uL (1.5-5.0); MEAN CORPUSCULAR HGB CONC 32.4 g/dl (32.0-36.5); MEAN CORPUSCULAR VOLUME 95.8 fl (80.0-96.0); MONO # 0.7 10^3/uL (0.0-0.8); MONO % 5.7 % (2.0-8.0); NEUTROPHILS # 7.9 10^3/uL (1.5-8.5); NEUTROPHILS % 69.8 % (36.0-66.0); PLATELET COUNT, AUTOMATED 177 10^3/uL (150-450); RED BLOOD COUNT 4.97 10^6/uL (4.30-6.10); WHITE BLOOD COUNT 11.3 10^3/uL (4.0-10.0)
[2021-10-30 22:17] LABS: INR 0.95; PROTHROMBIN TIME 13.1 SECONDS (12.7-14.5)
[2021-10-30 22:36] LABS: CK-MB VALUE MASS 1.7 NG/ML (<3.6); MB/CK RELATIVE INDEX 1.4 (< OR =4)
[2021-10-30 22:56] LABS: ALBUMIN 3.8 GM/DL (3.2-5.2); BILIRUBIN,DIRECT 0.2 MG/DL (0.0-0.2); BILIRUBIN,TOTAL 0.5 MG/DL (0.2-1.0); CREATININE FOR GFR 1.42 MG/DL (0.70-1.30); GLOMERULAR FILTRATION RATE 51.3 (>42); POTASSIUM SERUM 3.8 MEQ/L (3.5-5.1); TOTAL PROTEIN 7.2 GM/DL (6.4-8.2)
[2021-10-30] MEDS ORDERED: MECLIZINE 25 MG TABLET PO ONE (23:45)
[2021-10-31 00:08] LABS: CK-MB VALUE MASS 1.6 NG/ML (<3.6); MB/CK RELATIVE INDEX 1.38 (< OR =4)
[2021-10-31 01:46] LABS: CK-MB VALUE MASS 1.5 NG/ML (<3.6); MB/CK RELATIVE INDEX 1.38 (< OR =4)
[2021-10-31 02:30] VITALS: BP 118/70
[2021-10-31 03:01] VITALS: O2SAT 94
[2021-10-31] MEDS ORDERED: MECL1TAB31 PO (03:04)
== END 2021-10-31 03:15 | disposition home or self-care (01) ==
LOC: M ED 19:57
DX: H81.4 Vertigo of central origin (principal); E11.9 Type 2 diabetes mellitus without complications; G47.30 Sleep apnea, unspecified; I10 Essential (primary) hypertension; I25.10 Atherosclerotic heart disease of native coronary artery without angina pectoris; J45.909 Unspecified asthma, uncomplicated; N40.0 Benign prostatic hyperplasia without lower urinary tract symptoms; Z87.891 Personal history of nicotine dependence

== ENCOUNTER 2022-03-14 09:31 | Emergency (ER) | payer MEDICARE, MEDICAID ==
[~2022-03-14] VITALS: Ht 172.7 cm; Wt 104.5 kg
[~2022-03-14 09:31] MED LIST changes: -DOXY-350 PO; +DOXY-444 PO; -GOOD81CH2 PO; +MECL1TAB31 PO; +RA A81CH3 PO
[2022-03-14] MEDS ORDERED: IPRATROPIUM 0.5MG/ALBUTEROL 2.5MG INH SOL UD 3ML (DUONEB) NEB ONE (12:40)
[2022-03-14] MEDS ORDERED: methylPREDNISolone 125MG 2ML VIAL IV ONE (12:40)
[2022-03-14 13:03] LABS: BASO # 0.1 10^3/uL (0.0-0.2); BASO % 0.4 % (0.0-1.0); EOS # 0.2 10^3/uL (0.0-0.5); EOS % 1.5 % (0.0-3.0); HEMATOCRIT 47.5 % (42.0-52.0); HEMOGLOBIN 15.4 g/dl (13.5-17.5); LYMPH # 1.9 10^3/uL (1.5-5.0); LYMPH % 14.8 % (24.0-44.0); MEAN CORPUSCULAR HEMOGLOBIN 30.4 pg (27.0-33.0); MEAN CORPUSCULAR HGB CONC 32.4 g/dl (32.0-36.5); MEAN CORPUSCULAR VOLUME 93.7 fl (80.0-96.0); MONO # 0.7 10^3/uL (0.0-0.8); MONO % 5.7 % (2.0-8.0); NEUTROPHILS # 9.9 10^3/uL (1.5-8.5); NEUTROPHILS % 76.7 % (36.0-66.0); PLATELET COUNT, AUTOMATED 241 10^3/uL (150-450); RED BLOOD COUNT 5.07 10^6/uL (4.30-6.10); WHITE BLOOD COUNT 12.9 10^3/uL (4.0-10.0)
[2022-03-14 13:37] LABS: BLOOD UREA NITROGEN 22 MG/DL (9-23); CARBON DIOXIDE LEVEL 23 MMOL/L (20-31); CHLORIDE LEVEL 103 MMOL/L (98-107); CREATININE FOR GFR 1.06 MG/DL (0.70-1.30); GLOMERULAR FILTRATION RATE > 60.0 (>42); GLUCOSE, FASTING 106 MG/DL (74-106); POTASSIUM SERUM 4.3 MMOL/L (3.5-5.1); SODIUM LEVEL 138 MMOL/L (136-145)
[2022-03-14 14:07] LABS: RSV AMPLIFICATION NEGATIVE (NEGATIVE)
[2022-03-14 14:38] VITALS: O2SAT 93
[2022-03-14] MEDS ORDERED: IPRA2IN NEB (14:41)
[2022-03-14] MEDS ORDERED: PRED10TA2 PO (14:41)
[2022-03-14 15:20] VITALS: BP 120/68
== END 2022-03-14 15:20 | disposition home or self-care (01) ==
LOC: M ED 09:31
DX: J44.1 Chronic obstructive pulmonary disease with (acute) exacerbation (principal); E11.9 Type 2 diabetes mellitus without complications; E78.5 Hyperlipidemia, unspecified; J45.909 Unspecified asthma, uncomplicated; N18.30 Chronic kidney disease, stage 3 unspecified; N40.0 Benign prostatic hyperplasia without lower urinary tract symptoms; Z79.4 Long term (current) use of insulin; Z79.84 Long term (current) use of oral hypoglycemic drugs; Z79.899 Other long term (current) drug therapy
CPT/HCPCS: 71046; 80048; 83605; 85025; 87040; 87428; 87631; 93005; 93041; 94640; 96374; 99285; J2930

== ENCOUNTER 2022-03-19 17:26 | Inpatient (IN) | payer MEDICARE, MEDICAID ==
[~2022-03-19] VITALS: Ht 172.7 cm; Wt 108.2 kg
[~2022-03-19 17:26] MED LIST changes: +FLON1SPR; -FLON1SPR NARES; +IPRA2IN NEB; +PRED10TA2 PO
[2022-03-19 18:49] LABS: BASO # 0.1 10^3/uL (0.0-0.2); BASO % 0.5 % (0.0-1.0); EOS # 0.2 10^3/uL (0.0-0.5); HEMATOCRIT 54.1 % (42.0-52.0); HEMOGLOBIN 17.3 g/dl (13.5-17.5); LYMPH # 2.6 10^3/uL (1.5-5.0); MEAN CORPUSCULAR HEMOGLOBIN 30.4 pg (27.0-33.0); MEAN CORPUSCULAR VOLUME 95.1 fl (80.0-96.0); MONO % 6.2 % (2.0-8.0); NEUTROPHILS % 73.4 % (36.0-66.0); PLATELET COUNT, AUTOMATED 257 10^3/uL (150-450); RED BLOOD COUNT 5.69 10^6/uL (4.30-6.10); WHITE BLOOD COUNT 16.4 10^3/uL (4.0-10.0)
[2022-03-19 19:12] LABS: BILIRUBIN,DIRECT 0.3 MG/DL (<0.4)
[2022-03-19 19:13] LABS: ALBUMIN 4.1 G/DL (3.2-5.2); BILIRUBIN,TOTAL 0.9 MG/DL (0.3-1.2); CALCIUM LEVEL 9.4 MG/DL (8.3-10.6); CREATININE FOR GFR 1.38 MG/DL (0.70-1.30); GLOMERULAR FILTRATION RATE 52.9 (>42)
[2022-03-19 19:15] LABS: THYROID STIMULATING HORMONE 2.129 uIU/ML (0.55-4.78); THYROXINE (T4) 11.2 UG/DL (4.5-10.9)
[2022-03-19 19:35] LABS: RSV AMPLIFICATION NEGATIVE (NEGATIVE)
[2022-03-19] MEDS ORDERED: ISOVUE-370 76% 100ML VIAL As Ordered ONE (19:45)
[2022-03-19 20:07] LABS: ABG O2 SATURATION 93.3 % (95.0-99.0); ABG PARTIAL PRESSURE CO2 42.6 mmHg (35.0-45.0); ABG PARTIAL PRESSURE O2 68.4 mmHg (75.0-100.0); ABG STANDARD HCO3 25.2 MEQ/L (22.0-26.0); ABG TOTAL CO2 27.3 MEQ/L (23.0-31.0); ABG pH (ARTERIAL) 7.403 UNITS (7.350-7.450)
[2022-03-19] MEDS ORDERED: DOXEPIN 25 MG CAP PO SCH (21:00)
[2022-03-19] MEDS ORDERED: IPRATROPIUM 0.5MG/ALBUTEROL 2.5MG INH SOL UD 3ML (DUONEB) NEB ONE (21:00)
[2022-03-19] MEDS ORDERED: PRAVASTATIN 20 MG TAB PO SCH (21:00)
[2022-03-19] MEDS ORDERED: SEMA1PEN2 SC (22:54)
[2022-03-19] MEDS ORDERED: PRED10TA2 PO (22:54)
[2022-03-19] MEDS ORDERED: IPRA2IN INH (22:54)
[2022-03-19] MEDS ORDERED: INSUH10VL SC (22:54)
[2022-03-19] MEDS ORDERED: ADV250INH INH (22:54)
[2022-03-19] MEDS ORDERED: OXYB15TA14 PO (22:54)
[2022-03-19] MEDS ORDERED: MECL-86 PO (22:54)
[2022-03-19] MEDS ORDERED: VASC1CAP2 PO (22:54)
[2022-03-19] MEDS ORDERED: DOXE25CA PO (22:54)
[2022-03-19] MEDS ORDERED: CARA1TAB6 PO (22:54)
[2022-03-19] MEDS ORDERED: TRAM50TA2 PO (22:54)
[2022-03-19] MEDS ORDERED: OMEP40CA5 PO (22:54)
[2022-03-19] MEDS ORDERED: PRAV40TA2 PO (22:54)
[2022-03-19] MEDS ORDERED: FARX1TAB3 PO (22:54)
[2022-03-19] MEDS ORDERED: HOME MED LIST COMPLETE! XX SCH (22:55)
[2022-03-19] MEDS ORDERED: ALBUTEROL SULFATE 2.5MG/0.5ML INH NEB SOLN NEB PRN (23:00)
[2022-03-19] MEDS ORDERED: ALBUTEROL 90 MCG/ACT 8GM HFA INHALER INH PRN (23:00)
[2022-03-19] MEDS ORDERED: ACETAMINOPHEN 650MG ER TAB (TYLENOL ARTHRITIS) PO PRN (23:10)
[2022-03-19] MEDS ORDERED: NITROGLYCERIN 0.4MG SUBL TABLET SL PRN (23:10)
[2022-03-19] MEDS ORDERED: traMADol 50 MG TAB PO PRN (23:10)
[2022-03-20] MEDS ORDERED: GLUCAGON INJ 1MG VIAL SC PRN (00:35)
[2022-03-20] MEDS ORDERED: GLUCOSE 4GM CHEW TABLET PO PRN (00:35)
[2022-03-20] MEDS ORDERED: DEXTROSE 50% 50ML SYRINGE IV PRN (00:35)
[2022-03-20] MEDS: OMEPRAZOLE 20MG CAP PO SCH ×2 (01:14→10:07)
[2022-03-20] MEDS: GABAPENTIN 300 MG CAP PO SCH ×2 (01:15→10:05)
[2022-03-20] MEDS: DOXYCYCLINE HYCLATE 100MG TABLET PO SCH ×2 (01:15→10:09)
[2022-03-20] MEDS: allopurinoL 100 MG TAB PO SCH ×2 (01:15→10:10)
[2022-03-20] MEDS: IPRATROPIUM 0.5MG/ALBUTEROL 2.5MG INH SOL UD 3ML (DUONEB) NEB SCH ×3 (01:45→14:00)
[2022-03-20] MEDS ORDERED: HEPARIN SOD (PORCINE) 5000UNITS/ML 1ML VIAL/SYRINGE SQ SCH (06:00)
[2022-03-20 06:11] LABS: CALCIUM LEVEL 9.2 MG/DL (8.3-10.6); CREATININE FOR GFR 1.44 MG/DL (0.70-1.30); GLOMERULAR FILTRATION RATE 50.4 (>42)
[2022-03-20] MEDS ORDERED: INSULIN LISPRO (NovoLOG) PER UNIT SC SCH ×2 (07:30→21:00)
[2022-03-20] MEDS ORDERED: ADVAIR HFA 230/21MCG INHALER INH SCH (08:00)
[2022-03-20] MEDS ORDERED: predniSONE 20 MG TAB PO SCH (09:00)
[2022-03-20] MEDS ORDERED: PANTOPRAZOLE 40MG TAB (PROTONIX) PO SCH (09:00)
[2022-03-20] MEDS ORDERED: TAMSULOSIN 0.4 MG CAP PO SCH (09:00)
[2022-03-20] MEDS ORDERED: FINASTERIDE 5MG TAB PO SCH (09:00)
[2022-03-20] MEDS ORDERED: FUROSEMIDE 40 MG TAB PO SCH (09:00)
[2022-03-20] MEDS ORDERED: METOPROLOL SUCC *XL* 12.5MG PER 1/2 TAB (TopROL *XL*) PO SCH (09:00)
[2022-03-20] MEDS ORDERED: GUAI400T9 PO (09:39)
[2022-03-20] MEDS ORDERED: DOXY100T PO (09:39)
[2022-03-20] MEDS ORDERED: PRED20TA PO (09:39)
[2022-03-20 10:07] VITALS: BP 110/69
[2022-03-20 11:00] VITALS: BP 128/78
[2022-03-20] MEDS ORDERED: LEVEMIR (INSULIN DETEMIR) 1 UNITS/0.01ML SC SCH (21:00)
== END 2022-03-20 13:12 | disposition home or self-care (01) | DRG 191 ==
LOC: M ED 17:26 → M ED INP 22:24
PROVIDERS: ADMIT Internal Medicine; ATTEND Family Medicine
DX: J44.1 Chronic obstructive pulmonary disease with (acute) exacerbation (principal); I50.22 Chronic systolic (congestive) heart failure; N17.9 Acute kidney failure, unspecified; I13.0 Hypertensive heart and chronic kidney disease with heart failure and stage 1 through stage 4 chronic kidney disease, or unspecified chronic kidney disease; N18.9 Chronic kidney disease, unspecified; E11.22 Type 2 diabetes mellitus with diabetic chronic kidney disease; M10.9 Gout, unspecified; G47.33 Obstructive sleep apnea (adult) (pediatric); I25.10 Atherosclerotic heart disease of native coronary artery without angina pectoris; J45.909 Unspecified asthma, uncomplicated; G47.00 Insomnia, unspecified; K21.9 Gastro-esophageal reflux disease without esophagitis; N40.0 Benign prostatic hyperplasia without lower urinary tract symptoms; E78.00 Pure hypercholesterolemia, unspecified; Z95.5 Presence of coronary angioplasty implant and graft; Z95.0 Presence of cardiac pacemaker; Z87.891 Personal history of nicotine dependence; Z79.4 Long term (current) use of insulin; Z79.899 Other long term (current) drug therapy

== ENCOUNTER 2023-07-08 12:48 | Emergency (ER) | payer MEDICARE, MEDICAID ==
[~2023-07-08] VITALS: Ht 172.7 cm; Wt 114.1 kg
[~2023-07-08 12:48] MED LIST changes: +ASPI-663 PO; +CARA1TAB6 PO; +DOXE25CA PO; +DOXY100T PO; +FARX1TAB3 PO; +GUAI400T9 PO; +INSUH10VL SC; +IPRA2IN INH; +LIDO100S29 TOP; -LIDO2SOL9 TOP; +MECL-209 PO; -MECL1TAB31 PO; +OMEP40CA5 PO; +OXYB15TA14 PO; -OXYB5TAB10 PO; +OXYB5TAB14 PO; +PRED20TA PO; -RA A81CH3 PO; +SEMA1PEN2 SC; +VASC1CAP2 PO
[2023-07-08 14:19] LABS: RSV AMPLIFICATION NEGATIVE (NEGATIVE)
[2023-07-08 14:30] VITALS: BP 133/70; TEMP 96.8; O2SAT 94
== END 2023-07-08 14:52 | disposition home or self-care (01) ==
LOC: M ED 12:48
DX: J98.01 Acute bronchospasm (principal); I50.22 Chronic systolic (congestive) heart failure; I25.2 Old myocardial infarction; E11.9 Type 2 diabetes mellitus without complications; I11.0 Hypertensive heart disease with heart failure; J44.9 Chronic obstructive pulmonary disease, unspecified; N18.9 Chronic kidney disease, unspecified; G47.33 Obstructive sleep apnea (adult) (pediatric); Z79.1 Long term (current) use of non-steroidal anti-inflammatories (NSAID); Z79.51 Long term (current) use of inhaled steroids; Z79.4 Long term (current) use of insulin; Z79.899 Other long term (current) drug therapy

== ENCOUNTER 2024-12-14 13:56 | Emergency (ER) | payer MEDICARE, MEDICAID ==
[~2024-12-14] VITALS: Ht 172.7 cm; Wt 109.6 kg
[~2024-12-14 13:56] MED LIST changes: -ACE65ERTAB PO; +ACET-1593 PO; -ADV250INH INH; +ADVA1AER9 INH; +DOXY-440 PO; -DOXY-444 PO; -FLOM0.4C39 PO; +GABA-1490 PO; -GABA600T4 PO; +NEOM28OI27 TOP; -NYST-13 TOP; +NYST0.1C TOP; -PRAV40TA2 PO; +PRAV40TA85 PO; -SUCR1ORA2 PO; +SUCR1ORA20 PO; +TAMS-18 PO; -TRIPOIN11 TOP
[2024-12-14 13:59] VITALS: TEMP 97.7
[2024-12-14 14:51] LABS: BASO # 0.0 10^3/uL (0.0-0.2); BASO % 0.3 % (0.0-1.0); EOS # 0.3 10^3/uL (0.0-0.5); EOS % 2.6 % (0.0-3.0); LYMPH # 2.2 10^3/uL (1.5-5.0); LYMPH % 19.7 % (24.0-44.0); MONO # 0.8 10^3/uL (0.0-0.8); MONO % 6.7 % (2.0-8.0); NEUTROPHILS # 8.0 10^3/uL (1.5-8.5); NEUTROPHILS % 70.3 % (36.0-66.0); PLATELET COUNT, AUTOMATED 173 10^3/uL (150-450)
[2024-12-14] MEDS: MECLIZINE 25 MG TABLET PO ONE (15:34)
[2024-12-14 16:45] LABS: CPK CREATINE PHOSPHOKINASE 131.0 U/L (46-171)
[2024-12-14 16:46] LABS: ALT/SGPT 26.0 U/L (7.0-40); AST/SGOT 29.0 U/L (<34); CK-MB VALUE MASS 2.0 NG/ML (<3.6); MB/CK RELATIVE INDEX 1.52 (< OR =4)
[2024-12-14 16:49] LABS: FREE T4 0.86 NG/DL (0.89-1.76)
[2024-12-14] MEDS: NS (Normal Saline) 0.9% 1,000 ML IV ONE (17:30)
[2024-12-14 18:06] LABS: CK-MB VALUE MASS 1.6 NG/ML (<3.6); CPK CREATINE PHOSPHOKINASE 124.0 U/L (46-171); MB/CK RELATIVE INDEX 1.29 (< OR =4)
[2024-12-14 18:32] VITALS: O2SAT 93
[2024-12-14 18:53] VITALS: BP 84/39
== END 2024-12-14 19:12 | disposition left against medical advice (07) ==
LOC: M ED 13:56
DX: H81.4 Vertigo of central origin (principal); I25.119 Atherosclerotic heart disease of native coronary artery with unspecified angina pectoris; E11.9 Type 2 diabetes mellitus without complications; I10 Essential (primary) hypertension; J44.9 Chronic obstructive pulmonary disease, unspecified; N40.0 Benign prostatic hyperplasia without lower urinary tract symptoms; E78.5 Hyperlipidemia, unspecified; G47.33 Obstructive sleep apnea (adult) (pediatric); F17.210 Nicotine dependence, cigarettes, uncomplicated; Z79.1 Long term (current) use of non-steroidal anti-inflammatories (NSAID); Z79.51 Long term (current) use of inhaled steroids; Z79.4 Long term (current) use of insulin; Z79.899 Other long term (current) drug therapy; Z53.9 Procedure and treatment not carried out, unspecified reason

== ENCOUNTER 2025-01-23 09:04 | Emergency (ER) | payer MEDICARE, MEDICAID ==
[~2025-01-23] VITALS: Ht 172.7 cm; Wt 106.4 kg
[2025-01-23 11:44] LABS: BASO # 0.1 10^3/uL (0.0-0.2); BASO % 0.5 % (0.0-1.0); EOS # 0.3 10^3/uL (0.0-0.5); EOS % 2.6 % (0.0-3.0); LYMPH # 2.1 10^3/uL (1.5-5.0); LYMPH % 18.8 % (24.0-44.0); MONO # 0.6 10^3/uL (0.0-0.8); MONO % 5.5 % (2.0-8.0); NEUTROPHILS # 8.0 10^3/uL (1.5-8.5); NEUTROPHILS % 72.2 % (36.0-66.0); PLATELET COUNT, AUTOMATED 196 10^3/uL (150-450)
[2025-01-23 12:09] LABS: C REACTIVE PROTEIN QUANTITATIV < 0.50 MG/DL (<1.0); CALCIUM LEVEL 9.4 MG/DL (8.3-10.6); CARBON DIOXIDE LEVEL 28 MMOL/L (20-31); CHLORIDE LEVEL 106 MMOL/L (98-107); CREATININE FOR GFR 1.16 MG/DL (0.70-1.30); GLOMERULAR FILTRATION RATE 63.3 (>35); POTASSIUM SERUM 4.5 MMOL/L (3.5-5.1); SODIUM LEVEL 144 MMOL/L (136-145)
[2025-01-23 12:31] VITALS: BP 122/65
[2025-01-23 12:34] VITALS: TEMP 96.6; O2SAT 96
[2025-01-23] MEDS ORDERED: HYDR1CRE30 TOP (12:35)
[2025-01-23] MEDS ORDERED: MUPI30CR TOP (12:35)
== END 2025-01-23 12:50 | disposition home or self-care (01) ==
LOC: M ED 09:04
DX: R21 Rash and other nonspecific skin eruption (principal); L29.9 Pruritus, unspecified; I25.119 Atherosclerotic heart disease of native coronary artery with unspecified angina pectoris; I50.22 Chronic systolic (congestive) heart failure; I25.2 Old myocardial infarction; E11.9 Type 2 diabetes mellitus without complications; N18.30 Chronic kidney disease, stage 3 unspecified; J44.9 Chronic obstructive pulmonary disease, unspecified; Z79.1 Long term (current) use of non-steroidal anti-inflammatories (NSAID); Z79.51 Long term (current) use of inhaled steroids; Z79.4 Long term (current) use of insulin; Z79.899 Other long term (current) drug therapy

== ENCOUNTER → 2025-02-15 | Outpatient (REF) | payer MEDICARE, MEDICAID ==
[~2025-02-15] MED LIST changes: +HYDR1CRE30 TOP; +MUPI30CR TOP
[2025-02-15 15:23] LABS: APPEARANCE, URINE HAZY (CLEAR); BACTERIA, URINE AUTO NEGATIVE (NEGATIVE); BILIRUBIN, URINE AUTO NEGATIVE (NEGATIVE); BLOOD, URINE BLOOD NEGATIVE (NEGATIVE); GLUCOSE, URINE (UA) AUTO 3+ mg/dL (NEGATIVE); KETONE, URINE AUTO NEGATIVE (NEGATIVE); LEUKOCYTE ESTERASE, URINE AUTO NEGATIVE (NEGATIVE); MUCUS, URINE SMALL (NEGATIVE); NITRITE, URINE AUTO NEGATIVE (NEGATIVE); PROTEIN, URINE AUTO NEGATIVE (NEGATIVE); RBC, URINE AUTO 0 /HPF (0-3); SPECIFIC GRAVITY URINE AUTO 1.017 (1.002-1.035); SQUAMOUS EPITHELIAL CELL UR AU 1 /HPF (0-6); UROBILINOGEN, URINE AUTO 0.2 mg/dL (0.0-2.0); WBC, URINE AUTO 1 /HPF (0-3)
== END ==
LOC: M SMT 15:06
PROVIDERS: ATTEND Physician Assistant
DX: R39.14 Feeling of incomplete bladder emptying (principal)